=== PATIENT | male | born 1945 | race Caucasian/White ===

== ENCOUNTER → 2023-12-23 10:43 | Outpatient (REF) | payer OTHER, SELFPAY ==
[2023-12-23 11:47] LABS: % Basophils 0.7 % (0-2); % Eosinophils 0.7 % (0-6); % Immature Granulocytes 0.5 % (0-0.5); % Lymphocytes 13.2 % (20.5-51.1); % Monocytes 6.5 % (1.7-9.3); % Neutrophils 78.4 % (42.2-75.2); Absolute Basophils 0.1 10^3/uL (0-0.2); Absolute Eosinophils 0.1 10^3/uL (0-0.7); Absolute Monocytes 0.5 10^3/uL (0.1-0.6); Absolute Neutrophils 5.9 10^3/uL (1.4-6.5); Hematocrit 55.8 % (39.0-52.0); Mean Corp Hgb Conc. 34.1 g/dL (33.0-37.0); Mean Corpuscular Hgb 32.6 pg (27.0-31.0); Mean Corpuscular Volume 95.7 fL (80.0-94.0); Mean Platelet Volume 10.7 fL (7.4-10.4); Nucleated Red Blood Cells % 0 % (-); Platelet Count 130 10^3/uL (130-400); Red Blood Cell Count 5.83 10^6/uL (4.70-6.10); Red Cell Dist. Width 15.8 % (11.5-14.5); White Blood Cell Count 7.5 10^3/uL (4.8-10.8)
[2023-12-23 12:17] LABS: ALT (SGPT) 10 U/L (0-50); AST (SGOT) 17 U/L (17-59); Alkaline Phosphatase 136 U/L (38-126); Blood Urea Nitrogen 15 mg/dl (9-20); Carbon Dioxide 35 mmol/L (22-30); Chloride 97 mmol/L (98-107); Glucose 102 mg/dl (70-99); HDL Cholesterol 37 mg/dl; LDL Cholesterol, Calculated 45 mg/dl; Sodium 138 mmol/L (135-145); Total Bilirubin 1.2 mg/dl (0.2-1.3); Total Cholesterol 93 mg/dl (50-199); Total Protein 6.6 g/dl (6.3-8.2); Triglyceride 56 mg/dl (10-149); Very Low Density Lipoprotein 11 mg/dl (0-30); eGFR > 60.00
[2023-12-23 12:27] LABS: Free T4 1.19 ng/dl (0.78-2.19)
[2023-12-23 12:41] LABS: PSA, Total - Screen 0.92 ng/ml (0.0-4.0)
[2023-12-23 12:46] LABS: Glycohemoglobin (HgbA1c) 5.4 % (4.0-5.6)
[2023-12-23 14:22] LABS: TSH 1.84 uIU/ml (0.47-4.68)
== END ==
LOC: REG 10:43
PROVIDERS: ATTENDING PHYSICIAN Internal Medicine
DX: E03.8 Other specified hypothyroidism (principal); Z12.5 Encounter for screening for malignant neoplasm of prostate; E78.00 Pure hypercholesterolemia, unspecified; R73.9 Hyperglycemia, unspecified
CPT/HCPCS: 36415; 80053; 80061; 83036; 84439; 84443; 85025; G0103

== ENCOUNTER → 2024-01-01 13:22 | Outpatient (REF) | payer OTHER, SELFPAY | LOC: RAD 13:22 | PROVIDERS: ATTENDING PHYSICIAN Internal Medicine | DX: Z87.891 Personal history of nicotine dependence (principal) | CPT/HCPCS: 71271 ==

== ENCOUNTER → 2024-01-16 13:36 | Outpatient (REF) | payer OTHER, SELFPAY | LOC: RCS 13:36 | PROVIDERS: ATTENDING PHYSICIAN Internal Medicine | DX: I10 Essential (primary) hypertension (principal); R60.0 Localized edema | CPT/HCPCS: 93306 ==

== ENCOUNTER 2024-01-31 13:56 | Inpatient (IN) | payer OTHER, SELFPAY ==
[2024-01-31 11:23] VITALS: BP 166/89
[2024-01-31 11:54] VITALS: BMI 21.0
--- NOTE | 2024-01-31 12:04 | ED.GENMED ---
History of Present Illness
General
Chief Complaint: Breathing Problem
Source: patient
Time Seen by Provider: 01/31/24 11:48
History of Present Illness
History of Present Illness:
78yoM with a history of hypertension and COPD on oxygen QHS presenting for evaluation of leg swelling. He reports bilateral leg swelling that has been ongoing since 2021 after a pelvic injury. His leg swelling has been worsening over the past
several weeks to months. He also reports shortness of breath. He has been following with his PCP for the symptoms. He had an outpatient CT chest on 01/01/2024 which showed a tiny pericardial effusion. He had an echocardiogram done on 01/16/2024
which showed an EF of 30 to 35%. No pericardial effusion was present at that time. Patient denies any prior history of CHF and is not on any diuretics. He has an outpatient appointment with cardiology scheduled for next month. He was seen by his
PCP yesterday and was advised to go to the ED for evaluation.
Past History
Past History
ED Past Medical History: COPD
ED Past Surgical History: None
Social History
Tobacco: Smoker
Phy Exam
Physical Exam
Physical Exam:
Chronically ill appearing male in no distress
General Physical Exam
General Presentation: no apparent distress
General Skin: warm and dry
General Habitus: cachetic and elderly
General Mental: alert
Cardiovascular Exam
Cardiovascular Exam: regular rate/rhythm and other (2-3+ pitting edema in lower extremities up to the level of the thighs)
Pulmonary Exam
Pulmonary Exam: no respiratory distress, no crackles, no wheezing and decreased breath sounds
Ashley Coma Scale
Eye Opening: Spontaneous
Verbal Response: Oriented
Motor Response: Obeys Commands
GCS Total Score: 15
Skin Exam
Skin Exam: normal color and warm/dry
Psychiatric Exam
Psychiatric Exam: normal mood/affect
Scores
Heart Failure Risk
Heart Failure Risk Score: Not Applicable
Course
Orders/Labs/Results
Orders:
Orders
01/31/24 11:50
BNP [NT-proBNP] Urgent
CBC/With Diff [Complete Blood Count/With Diff] Urgent
CMP [Comprehensive Metabolic Panel] Urgent
Troponin I Urgent
Comment: ADD ON
01/31/24 12:02
Chest [CR Chest - 2 Views ] Urgent
Comment:
Reason For Exam: SOB
01/31/24 12:04
Cardiac Monitoring- Treatment ONCE
01/31/24 12:22
Electrocardiogram (*1) Urgent
Reason for Study: Shortness of Breath
EKG- Treatment ONCE
01/31/24 12:37
Furosemide [Lasix] 40 mg IV NOW STA
01/31/24 12:42
Add On- LAB Urgent
Tests Added?: troponin
Abnormal Lab Results
01/31/24
11:50
Hgb 19.2 H g/dL
(13.0-18.0)
Hct 58.4 H %
(39.0-52.0)
MCV 98.5 H fL
(80.0-94.0)
MCH 32.4 H pg
(27.0-31.0)
MCHC 32.9 L g/dL
(33.0-37.0)
RDW 17.0 H %
(11.5-14.5)
MPV 10.8 H fL
(7.4-10.4)
Absolute Lymphs (auto) 0.6 L 10^3/uL
(1.2-3.4)
Neutrophils % 78.4 H %
(42.2-75.2)
Lymphocytes % 12.3 L %
(20.5-51.1)
Potassium 5.4 H mmol/L
(3.5-5.1)
Carbon Dioxide 39 H mmol/L
(22-30)
BUN 28 H mg/dl
(9-20)
Creatinine 0.6 L mg/dL
(0.7-1.3)
Glucose 105 H mg/dl
(70-99)
Alkaline Phosphatase 129 H U/L
(38-126)
01/31/24 11:50
01/31/24 11:50
Vital Signs
Initial and Last Documented VS:
Initial Vital Signs
Temp Pulse Resp BP Pulse Ox
98.1 F 80 18 166/89 90
01/31/24 11:23 01/31/24 11:23 01/31/24 11:23 01/31/24 11:23 01/31/24 11:23
Last Documented Vital Signs
Temp Pulse Resp BP Pulse Ox
98.1 F 80 18 166/89 90
01/31/24 11:23 01/31/24 11:23 01/31/24 11:23 01/31/24 11:23 01/31/24 11:23
MDM/Problems Addressed
Differential Diagnosis Includes:
78yoM here with bilateral leg swelling and SOB. Ongoing x several weeks to months. Outpatient echo last month showed an EF of 30-35%. No prior hx of CHF. He is afebrile and hemodynamically stable. Oxygen saturation 90% on room air. Pitting edema up
to the level of the thighs on exam. Differential diagnosis includes but is not limited to: CHF, volume overload, ACS
Initial ED plan: Check cardiac labs, EKG, and CXR.
*EKG
Interpreted by ED Provider?: Yes
EKG Intrepretation Date: 01/31/24
Heart Rate: 76
Rate: normal
Rhythm: sinus
[place]: left axis deviation
Interval: normal interval
Ischemia: T-wave inversion
*Critical Care Note
Total Time (30-74mins, 75-104mins- exclusive of procedures): Not Applicable
Update Note
Update Note:
Labs show a BNP of 15,000. EKG shows NSR with nonspecific T wave changes. Troponin 0.03. Potassium 5.4 although creatinine WNL. No pulmonary edema present on CXR. He was given 40mg IV Lasix and admitted for further management.
ED Attending Note
-
Portions of this chart may have been created with voice recognition software.� Occasional wrong word or��sound alike� substitutions may have occurred due to the inherent limitations of voice recognition software.
Discharge Plan
Departure
Patient Disposition: Admit
Date of Disposition: 01/31/24
Time of Disposition: 13:26
Presentation/result/management discussed w/ accepting MD/DO: Hospitalist
Discharge Problem:
Acute exacerbation of CHF (congestive heart failure)
Prescriptions:
No Action
tamsulosin 0.4 mg capsule
0.4 mg PO QPM
lisinopril 5 mg tablet
5 mg PO QPM
albuterol sulfate 90 mcg/actuation HFA aerosol inhaler
2 puff INHALATION Q4HPRN PRN (Reason: shortness of breath )
Referrals:
Tu Jones DO [Family Provider] -
Interventions
Interventions:
*Risk Screen - Suicide Last Done: 01/31/24 11:54
*General Assessment Last Done: 01/31/24 11:54
*Neglect/Abuse Screening Last Done: 01/31/24 11:54
ED- Fall Risk Assessment Last Done: 01/31/24 11:54
ED- Cardiac Assessment Last Done: 01/31/24 11:54
ED- Pulmonary Assessment Last Done: 01/31/24 11:54
Discharge Date and Time
Print Language: CA[place] ISLAND[place]
[2024-01-31 12:10] LABS: % Basophils 0.6 % (0-2); % Eosinophils 0.8 % (0-6); % Immature Granulocytes 0.2 % (0-0.5); % Lymphocytes 12.3 % (20.5-51.1); % Monocytes 7.7 % (1.7-9.3); % Neutrophils 78.4 % (42.2-75.2); Absolute Lymphocytes 0.6 10^3/uL (1.2-3.4); Absolute Monocytes 0.4 10^3/uL (0.1-0.6); Absolute Neutrophils 3.9 10^3/uL (1.4-6.5); Hematocrit 58.4 % (39.0-52.0); Hemoglobin 19.2 g/dL (13.0-18.0); Mean Corp Hgb Conc. 32.9 g/dL (33.0-37.0); Mean Corpuscular Hgb 32.4 pg (27.0-31.0); Mean Corpuscular Volume 98.5 fL (80.0-94.0); Mean Platelet Volume 10.8 fL (7.4-10.4); Nucleated Red Blood Cells % 0 % (-); Platelet Count 130 10^3/uL (130-400); Red Blood Cell Count 5.93 10^6/uL (4.70-6.10)
[2024-01-31 12:28] LABS: ALT (SGPT) 13 U/L (0-50); AST (SGOT) 22 U/L (17-59); Albumin 4.1 g/dl (3.5-5.0); Alkaline Phosphatase 129 U/L (38-126); Blood Urea Nitrogen 28 mg/dl (9-20); Calcium 9.1 mg/dl (8.4-10.2); Carbon Dioxide 39 mmol/L (22-30); Chloride 101 mmol/L (98-107); Estimated Creatinine Clearance 110 ml/min; Glucose 105 mg/dl (70-99); Potassium 5.4 mmol/L (3.5-5.1); Sodium 145 mmol/L (135-145); Total Bilirubin 1.2 mg/dl (0.2-1.3); Total Protein 6.7 g/dl (6.3-8.2); eGFR > 60.00
[2024-01-31 12:34] LABS: NT-proBNP 15600 pg/ml
[2024-01-31] MEDS: LASIX 40 MG IV (13:09)
--- NOTE | 2024-01-31 13:46 | HPS.HSE ---
Family Physician
-
Family Physician: Tu Jones
Chief Complaint
-
edema
History of Present Illness
78-year-old male past medical history of hypertension, COPD on 1 L at nighttime, BPH, presenting for leg swelling. He has been having bilateral leg swelling since 2021 after pelvic injury. Swelling has been worse over the past several weeks to
months and goes up to his groin. He has gained possibly 20 pounds in the past few months. He has some productive cough which is chronic from smoking. He also has shortness of breath and saw his primary care physician who ordered CT chest on 12/31
which showed tiny pericardial effusion. He had an echocardiogram on 01/15 which showed EF of 30 to 35%. No pericardial effusion was seen at that time. He denies any history of heart failure or cardiac problems. He has outpatient appoint with
cardiology scheduled for next month.
He denies any fevers or chills.
He smokes a pack of cigarettes a day. He denies alcohol.
No family history of heart problems.
He is scheduled to see Dr. Christiansen next month.
Medical History
Past Medical History
Past Medical History: Reports Other (hypertension, COPD on 1 L at nighttime, BPH,)
Past Surgical History: Reports None
Social History
Tobacco: Former Smoker
Alcohol: None
Drug: None
Family History
Family History: Not pertinent
Allergies / Home Medications
Allergies reflects when Allergies were last updated in [facility].
Home Medications with original date entered in [facility]
Allergy/Medication List:
Allergies
Allergy/AdvReac Type Severity Reaction Status Date / Time
No Known Allergies Allergy Unverified 06/07/19 17:15
Home Medications
albuterol sulfate 90 mcg/actuation aerosol inhaler 2 puff inhalation Q4HPRN PRN shortness of breath 01/31/24
lisinopril 5 mg tablet 5 mg PO QPM blood pressure 01/31/24
tamsulosin 0.4 mg capsule 0.4 mg PO QPM urinary issue 01/31/24
Review of Systems
-
History Source: Patient
A 12 point ROS was completed and negative except as noted: Yes
Constitutional: Reports No Symptoms
EENT: Reports No Symptoms
Respiratory: Reports See HPI
Cardiac: Reports See HPI
Abdomen/GI: Reports No Symptoms
: Reports No Symptoms
Musculoskeletal: Reports No Symptoms
Skin: Reports No Symptoms
Neurological: Reports No Symptoms
Endocrine: Reports No Symptoms
Hematologic/Lymphatic: Reports No Symptoms
Psych: Reports No Symptoms
Physical Exam
Vital Signs
Vital Signs
Temp Pulse Resp BP Pulse Ox
98.1 F 80 18 166/89 90
01/31/24 11:23 01/31/24 11:23 01/31/24 11:23 01/31/24 11:23 01/31/24 11:23
Physical Exam
General: Well Developed, Well Nourished and No Apparent Distress
HEENT: NormoCephalic, Moist mucous membranes and Atraumatic
Respiratory: Clear
Cardiac: S1/S2 and Regular Rhythm; No Murmur or Rub
GI: Soft, Non Tender, Non Distended and Normal Bowel Sounds; No Organomegaly
Rectal: Deferred by Provider
Musculoskeletal: No Clubbing, No Cyanosis and No Edema
Skin: No Rash
Neuro: Nonfocal/grossly intact
Laboratory Results
-
01/31/24 11:50
01/31/24 11:50
Laboratory Results
Total Bilirubin 1.2 mg/dl (0.2-1.3) 01/31/24 11:50
AST 22 U/L (17-59) 01/31/24 11:50
ALT 13 U/L (0-50) 01/31/24 11:50
Alkaline Phosphatase 129 U/L (38-126) H 01/31/24 11:50
Troponin I Cancelled 01/31/24 12:04
Data Reviewed
-
Lab Data: Labs Reviewed by me
Old Records: Reviewed
Impression/Plan
-
IMPRESSION:
PLAN:
# Acute HFrEF exacerbation
-Chest x-ray shows interval enlargement of cardiac silhouette compared with CT on 12/31, no acute cardiopulmonary process
-Cardiac BNP of 15,000
-Check I's and O's, daily weights
-Recent echo shows EF of 30 to 35%, global hypokinesis,
-40 IV Lasix daily
-Cardiology consulted
# Hyperkalemia secondary to lisinopril
-Monitor with diuresis
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
-Check venous ultrasound to rule out DVT
# Chronic polycythemia secondary to COPD versus primary
-Check EPO, JAK2
-May need hematology follow-up
Mild to moderate tricuspid regurgitation
Pulmonary hypertension
Essential hypertension
-Continue lisinopril
COPD on 1 L oxygen at nighttime
-Continue butyryl
Active smoker
-Nicotine patch
BPH
-Continue tamsulosin
Full code
DVT prophylaxis�heparin
Cardiac diet
[2024-01-31 15:15] VITALS: BP 174/106
[2024-01-31 16:08] VITALS: BMI 19.1
[2024-01-31 16:09] VITALS: BMI 19.1
[2024-01-31 16:11] VITALS: BP 164/92
[2024-01-31] MEDS: ZESTRIL 5 MG PO (17:57)
[2024-01-31] MEDS: FLOMAX 0.4 MG PO (17:58)
[2024-01-31 19:27] VITALS: BP 160/81
[2024-01-31] MEDS: HEPARIN SC (20:52)
[2024-01-31 23:39] VITALS: BP 146/79
[2024-02-01 03:18] VITALS: BP 154/75
[2024-02-01 06:56] LABS: % Basophils 0.6 % (0-2); % Eosinophils 0.9 % (0-6); % Immature Granulocytes 0.4 % (0-0.5); % Lymphocytes 9.2 % (20.5-51.1); % Monocytes 8.8 % (1.7-9.3); % Neutrophils 80.1 % (42.2-75.2); Absolute Eosinophils 0.1 10^3/uL (0-0.7); Absolute Lymphocytes 0.5 10^3/uL (1.2-3.4); Absolute Monocytes 0.5 10^3/uL (0.1-0.6); Absolute Neutrophils 4.3 10^3/uL (1.4-6.5); Hematocrit 54.7 % (39.0-52.0); Hemoglobin 17.4 g/dL (13.0-18.0); Mean Corp Hgb Conc. 31.8 g/dL (33.0-37.0); Mean Corpuscular Hgb 31.9 pg (27.0-31.0); Mean Corpuscular Volume 100.2 fL (80.0-94.0); Mean Platelet Volume 9.9 fL (7.4-10.4); Nucleated Red Blood Cells % 0 % (-); Platelet Count 114 10^3/uL (130-400); Red Blood Cell Count 5.46 10^6/uL (4.70-6.10); Red Cell Dist. Width 16.1 % (11.5-14.5); White Blood Cell Count 5.4 10^3/uL (4.8-10.8)
[2024-02-01 07:25] VITALS: BP 159/83
[2024-02-01 08:02] LABS: ALT (SGPT) 11 U/L (0-50); AST (SGOT) 18 U/L (17-59); Albumin 3.6 g/dl (3.5-5.0); Alkaline Phosphatase 127 U/L (38-126); Blood Urea Nitrogen 27 mg/dl (9-20); Calcium 8.3 mg/dl (8.4-10.2); Carbon Dioxide 38 mmol/L (22-30); Chloride 99 mmol/L (98-107); Estimated Creatinine Clearance 91 ml/min; Glucose 96 mg/dl (70-99); Potassium 4.4 mmol/L (3.5-5.1); Sodium 146 mmol/L (135-145); Total Protein 6.1 g/dl (6.3-8.2); eGFR > 60.00
[2024-02-01] MEDS: HEPARIN 5000 UNITS SC ×2 (08:06→20:29)
[2024-02-01] MEDS: LASIX 40 MG IV (08:06)
[2024-02-01] MEDS: NICODERM TRANSDERMAL TRANSDERM ×2 (08:06→08:12)
[2024-02-01 09:10] VITALS: BMI 19.1
--- NOTE | 2024-02-01 09:39 | W.PN.HOSP.TC ---
Today's Communication/Plan
-
see bold
Assessment / Plan
Assessment / Plan
Gen: NAD, awake and alert, appears chronically ill and malnourished, cachectic
Eyes: EOMI, PERRLA, no scleral icterus.
Neck: supple.
CV: RRR, +S1/S2, no m/r/g.
Resp: Coarse breath sounds bilaterally
Abd: +BS, soft, NT, ND
Skin: No rashes. 2+ B/L LE edema
Neuro: CN 2-12 intact, non-focal.
Psych: Normal mood and affect.
B/L LE U/S: No sonographic evidence for lower extremity venous thrombosis. Lower extremity soft tissue edema.
Echo 01/16/24: EF 30-35%. Global hypokinesis. Severely enlarged RV with reduced right RV systolic fxn. mild-mod TR. Severely elevated PASP of 72 mmHg.
Acute HFrEF:
-Chest x-ray shows interval enlargement of cardiac silhouette compared with CT on 12/31, no acute cardiopulmonary process
-Cardiac BNP of 15,000
-I/O's, daily wts
-Recent echo above
-cont IV Lasix
-Cardiology following
-D-dimer POS, check CTA chest
Other problems:
Hyperkalemia secondary to lisinopril, resolved with diuresis
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
Mild-mod TR
Pulmonary hypertension
Essential hypertension: Continue lisinopril
Chronic hypoxemic respiratory failure due to COPD: on 1L NC O2 HS, Continue butyryl
Tobacco abuse disorder: Nicotine patch
BPH: Continue tamsulosin
FULL/heparin
Total time spent on today's encounter was 50 minutes which included time spent in counseling the patient/family regarding diagnosis and treatment plan as listed above, goals of care, and symptom management. Case was discussed with nursing staff,
specialists, and care coordinators/case management. All labs and imaging personally reviewed by me. Remainder the time spent in detailed review of previous records, lab data, imaging, and other medical provider documentation.
Anticipated Discharge: 24 - 48 hours
Subjective/Interval History
-
Date of Service: February 01, 2024
Currently denies SOB.
Objective Data
-
Labs:
Laboratory Results
02/01/24
06:18
WBC 5.4
Hgb 17.4
Hct 54.7 H
Plt Count 114 L
Sodium 146 H
Potassium 4.4
Chloride 99
Carbon Dioxide 38 H
BUN 27 H
Creatinine 0.7
Glucose 96
Calcium 8.3 L
Total Bilirubin 1.0
AST 18
ALT 11
Alkaline Phosphatase 127 H
Vital Signs:
Vital Signs
Temp Pulse Resp BP Pulse Ox
97.9 F 76 20 154/75 95
02/01/24 07:25 02/01/24 08:06 02/01/24 07:25 02/01/24 08:06 02/01/24 08:00
I&O
01/31/24 02/01/24 02/02/24
06:59 06:59 06:59
Intake Total 480 / 480
Output Total 900 / 900
Balance -420 / -420
--- NOTE | 2024-02-01 09:41 | CON.CAR ---
Addendum entered and electronically signed by Joshua Christiansen MD 02/01/24 12:36:
I saw and examined the patient.
The SOCIAL MEDIA SR STRATEGY MANAGER or PA's note was reviewed and I agree with the note.
Comment: General: Well developed, well nourished in NAD.
Neck: Supple, no JVD, HJR, carotids +2 B/L, no bruits bilaterally.
Heart: Non displaced PMI, RRR, no murmurs, No S3, S4, no rubs.
Lungs: Scattered rhonchi
Abdomen: Normal bowel sounds, soft, non-tender, non-distended.
Extremities: No clubbing, cyanosis or edema bilaterally.
Neuro: Grossly nonfocal, awake, alert and oriented x3.
Sadi has a history of COPD on chronic home oxygen 1 L, hypertension, ongoing tobacco abuse. He presents with increasing lower extremity edema and an outpatient echocardiogram with ejection fraction of 30 to 35% in December 2023. He denies chest pain
or shortness of breath at present. Of note right ventricle was dilated on echo but CT was negative for pulmonary embolism.
Will treat with IV Lasix. Will add Coreg and continue lisinopril. May consider changing to Entresto. Will also add Farxiga. Eventual Aldactone as well.
The most common cause of cardiomyopathy is CAD. Of note he has continued tobacco abuse and high risk for CAD. Will arrange for cardiac catheterization on Friday 02/02. Of note his mother during bypass surgery so he may not agree to bypass if
needed. Will add aspirin daily.
Addendum entered and electronically signed by Lashell Gaspar PA-C 02/01/24 10:13:
gave 324mg asa and added 81mg daily for now.
Original Note:
Consultation
Consultation Request
Date/Time Consultation Performed: 02/01/24
Requesting Provider: Dr. Lock
Performing Provider: Lashell Gaspar PA-C for Dr. Christiansen
Reason for Consultation: LE edema, CHF
Medical History
-
Chief Complaint: LE swelling
History of Present Illness:
Patient is a 78-year-old male with past medical history of ongoing tobacco use and COPD on chronic home O2 1 L nasal cannula, which he mostly uses at night, as well as hypertension who has had issues with bilateral lower extremity swelling since a
pelvic surgery in 2021, however over the last several months has noted significant worsening. He was seen by his primary care physician for this and ordered chest CT lung scan 01/01/2024 with tiny pericardial effusion. Also ordered echocardiogram
completed 01/16/2024 which showed new EF of 30 to 35% and large RV. He was recommended cardiology evaluation, presently scheduled for 03/23/2024. He was seen by his primary care physician earlier this week and advised to come to the emergency room
for further evaluation. He denies chest discomfort, shortness of breath, palpitations, weight gain, fevers chills, orthopnea. Reports he continues to smoke a pack a day. Lives independently and still working, driving. proBNP [id number].
PMH:
COPD, on chronic home O2 1L
HTN
Ongoing tobacco use
FH of CAD
Past Medical History
Past Medical History: Other (in HPI)
Social History
Tobacco: Smoker
Alcohol: None
Living: Alone
Employment: Employed
Family History
Family History: CAD
Allergies / Home Medications
Allergy/AdvReac Type Severity Reaction Status Date / Time
No Known Allergies Allergy Unverified 06/07/19 17:15
�Medication �Instructions �Recorded �Confirmed �Type
albuterol sulfate 90 mcg/actuation 2 puff inhalation Q4HPRN PRN 01/31/24 01/31/24 History
aerosol inhaler shortness of breath
lisinopril 5 mg tablet 5 mg PO QPM blood pressure 01/31/24 01/31/24 History
tamsulosin 0.4 mg capsule 0.4 mg PO QPM urinary issue 01/31/24 01/31/24 History
Review of Systems
-
History Source: Patient
All other systems: Negative unless noted
Physical Exam
Vital Signs
Temp Pulse Resp BP Pulse Ox
97.9 F 76 20 154/75 95
02/01/24 07:25 02/01/24 08:06 02/01/24 07:25 02/01/24 08:06 02/01/24 08:00
Lab Results
02/01/24 06:18
02/01/24 06:18
Troponin I Cancelled 01/31/24 12:04
Fnw-V-Ojuhzmyrtyg Pept 00482 pg/ml 01/31/24 11:50
Physical Exam
General: No Apparent Distress, Comfortable and Other (frail appearing. on supp O2)
HEENT: Normocephalic, Anicteric and Moist Mucous Membranes
Respiratory: Clear and Non Labored Respirations
Cardiac: S1/S2 and Regular Rhythm
GI: Soft and Non Tender
Musculoskeletal: No Clubbing, No Cyanosis and Edema (2-3+ edema of B/L LE to knees)
Skin: Warm and Dry
Neuro: AO x 3
Impression / Plan
-
Primary Business Professor: scheduled to see Dr. Christiansen 03/23
Assessment:
Presentation with LE edema
Acute HFrEF
Cardiomyopathy, EF 30-35% by echo 01/16/24
Enlarged RV by echo 01/16/24
Thrombocytopenia
COPD, on chronic home O2 1L
HTN
Ongoing tobacco use
FH of CAD
ECHO 01/16/24: EF 30 to 35%, global hypokinesis, severely enlarged RV size with reduced RV systolic function, mild to moderate TR, severely elevated PASP with PAP 72 mmHg
Plan:
-Patient presents with worsening bilateral lower extremity edema over the last several months. recent outpatient echo with EF 30-35 with no prior to compare. proBNP 15,600
-Diuresis with IV Lasix, currently on 40mg IV daily. Creatinine stable. daily weights
-CHF education
-tubigrip stockings
-Also noted by echo to have severely enlarged RV size. Peripheral vascular ultrasound negative for DVT. Would consider for D-dimer/CTA to rule out PE, d/w hospitalist
-Chest x-ray also noted to have increased cardiac silhouette, to be further evaluated by CTA
-Continue outpatient lisinopril. As without wheezing, add Coreg 3.125 mg twice daily and follow closely. will have CM assess cost to patient of SGLT2 inhibitor
-On review of telemetry overnight, patient noted to have several brief episodes of aberrant conduction versus NSVT, asymptomatic. K stable. Check magnesium
-Discussed if CT is negative for PE, will consider for cardiac catheterization on Friday 02/02 to evaluate coronary arteries. He is an ongoing smoker and with family history of CAD
-Encouraged tobacco cessation
Data Reviewed
-
EKG: Tracing Personally Visualized and interpreted
Radiology: Report Reviewed by me
CT Scan: Report Reviewed by me
Medical Tests (Nuc Med, Echo etc): Report Reviewed by me
Labs: Labs Reviewed by me
Old Records: Reviewed
[2024-02-01 10:02] LABS: D-Dimer 1.59 ug/mlFEU (0.00-0.50)
[2024-02-01 10:44] LABS: Troponin I 0.028 ng/ml
[2024-02-01] MEDS: COREG 3.125 MG PO ×2 (11:23→20:29)
[2024-02-01] MEDS: LOW STRENGTH ASPIRIN 324 MG PO (11:24)
--- NOTE | 2024-02-01 11:37 | CM ---
Addendum entered by Karime [facility] 02/01/24 14:55:
Patient seen bedside.
IA completed.
DX CHF.
Patient lives alone in a 1 story home with no steps.
Independent prior to admission without assistive devices.
Patient drives.
Patient had VN int he remote past, he thinks [facility].
Patient denies home care needs at this time.
Patient aware of CM availability should needs arise.
PCP; Dr Jones
Pharmacy: [facility]
Plan: home no needs anticipated.
Original Note:
CM referral re Farxiga 10 mg daily
Cost..$47/month.
[2024-02-01 11:46] VITALS: BP 149/89
[2024-02-01] MEDS: FARXIGA 10 MG PO ×2 (12:54→16:55)
[2024-02-01 15:38] VITALS: BP 115/53
[2024-02-01] MEDS: FLOMAX 0.4 MG PO (16:55)
[2024-02-01] MEDS: ZESTRIL 5 MG PO (16:55)
[2024-02-01 19:00] VITALS: BP 142/64
[2024-02-01 23:00] VITALS: BP 127/62
[2024-02-02 03:00] VITALS: BP 117/66
[2024-02-02 06:00] VITALS: BMI 18.9
[2024-02-02] MEDS: COREG 3.125 MG PO ×2 (07:33→19:39)
[2024-02-02] MEDS: FARXIGA 10 MG PO (07:33)
[2024-02-02] MEDS: LASIX 40 MG IV (07:33)
[2024-02-02] MEDS: NICODERM TRANSDERMAL TRANSDERM (07:34)
[2024-02-02] MEDS: HEPARIN 5000 UNITS SC ×2 (07:34→19:39)
[2024-02-02] MEDS: LOW STRENGTH ASPIRIN 81 MG PO (07:34)
[2024-02-02 07:40] VITALS: BP 108/52
[2024-02-02 08:27] LABS: Albumin 3.5 g/dl (3.5-5.0); Blood Urea Nitrogen 31 mg/dl (9-20); Calcium 8.5 mg/dl (8.4-10.2); Chloride 92 mmol/L (98-107); Estimated Creatinine Clearance 104 ml/min; Glucose 93 mg/dl (70-99); Hematocrit 54.2 % (39.0-52.0); Hemoglobin 17.4 g/dL (13.0-18.0); Mean Corp Hgb Conc. 32.1 g/dL (33.0-37.0); Mean Corpuscular Volume 102.8 fL (80.0-94.0); Mean Platelet Volume 10.3 fL (7.4-10.4); Phosphorus 3.8 mg/dl (2.5-4.5); Platelet Count 132 10^3/uL (130-400); Potassium 4.9 mmol/L (3.5-5.1); Red Blood Cell Count 5.27 10^6/uL (4.70-6.10); Red Cell Dist. Width 15.4 % (11.5-14.5); Sodium 141 mmol/L (135-145); White Blood Cell Count 6.7 10^3/uL (4.8-10.8); eGFR > 60.00
[2024-02-02 08:37] LABS: Carbon Dioxide 39 mmol/L (22-30)
--- NOTE | 2024-02-02 10:06 | W.PN.HOSP.TC ---
Today's Communication/Plan
-
see bold
Assessment / Plan
Assessment / Plan
Gen: NAD, awake and alert, appears chronically ill and malnourished, cachectic
Eyes: EOMI, PERRLA, no scleral icterus.
Neck: supple.
CV: remains RRR, +S1/S2, no m/r/g.
Resp: remains coarse breath sounds bilaterally
Abd: +BS, soft, NT, ND
Skin: No rashes. trace B/L LE edema
Neuro: CN 2-12 intact, non-focal.
Psych: Normal mood and affect.
B/L LE U/S: No sonographic evidence for lower extremity venous thrombosis. Lower extremity soft tissue edema.
Echo 01/16/24: EF 30-35%. Global hypokinesis. Severely enlarged RV with reduced right RV systolic fxn. mild-mod TR. Severely elevated PASP of 72 mmHg.
CTA chest: No PE. Mild centrilobular emphysema. Pleural-parenchymal scarring at both lung apices. Minimal bilateral pleural effusions. Cardiomegaly without associated pulmonary edema. Atherosclerosis.
Acute HFrEF:
-Chest x-ray shows interval enlargement of cardiac silhouette compared with CT on 12/31, no acute cardiopulmonary process
-Cardiac BNP of 15,000
-I/O's, daily wts
-Recent echo above
-cont IV Lasix
-Cardiology following
-cont Coreg/Farxiga
Other problems:
Hyperkalemia secondary to lisinopril, resolved with diuresis
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
Mild-mod TR
Pulmonary hypertension
Essential hypertension: Continue lisinopril/Coreg
Chronic hypoxemic respiratory failure due to COPD: on 1L NC O2 HS, Continue albuterol PRN
Tobacco abuse disorder: Nicotine patch
BPH: Continue tamsulosin
FULL/heparin
Anticipated Discharge: 24 - 48 hours
Subjective/Interval History
-
Date of Service: February 02, 2024
No new complaints.
Objective Data
-
Labs:
Laboratory Results
02/02/24
07:24
WBC 6.7
Hgb 17.4
Hct 54.2 H
Plt Count 132
Sodium 141
Potassium 4.9
Chloride 92 L
Carbon Dioxide 39 H
BUN 31 H
Creatinine 0.6 L
Glucose 93
Calcium 8.5
Vital Signs:
Vital Signs
Temp Pulse Resp BP Pulse Ox
97.7 F 68 16 108/52 92
02/02/24 07:40 02/02/24 07:40 02/02/24 07:40 02/02/24 07:40 02/02/24 08:00
I&O
02/01/24 02/02/24 02/03/24
06:59 06:59 06:59
Intake Total 480 / 480 840 / 840
Output Total 900 / 900 1750 / 1750
Balance -420 / -420 -910 / -910
[2024-02-02 11:21] VITALS: BP 106/57
--- NOTE | 2024-02-02 11:22 | W.PN.CARDCBS ---
Today's Communication / Plan
-
Continue IV Lasix
Add Aldactone
For catheterization 02/02
Impression / Plan
-
Primary Mobile Manager: scheduled to see Dr. Christiansen 03/23
Assessment:
Presentation with LE edema
Acute HFrEF
Cardiomyopathy, EF 30-35% by echo 01/16/24
Enlarged RV by echo 01/16/24/CT negative for PE 02/01/2024
COPD, on chronic home O2 1L
HTN
Ongoing tobacco use
FH of CAD
ECHO 01/16/24: EF 30 to 35%, global hypokinesis, severely enlarged RV size with reduced RV systolic function, mild to moderate TR, severely elevated PASP with PAP 72 mmHg
Plan:
Difficult examination with scattered rhonchi likely due to longstanding tobacco abuse/COPD
Will continue IV Lasix for now
Plan on catheterization on 02/02 AM
Continue Coreg, lisinopril, Farxiga for cardiomyopathy. Will add Aldactone.
Progress Note - Mobile Manager
Subjective
Date of Service: February 02, 2024
No complaints
Objective
Labs:
02/02/24 07:24
02/02/24 07:24
Labs
Hgb 17.4 g/dL (13.0-18.0) 02/02/24 07:24
Hct 54.2 % (39.0-52.0) H 02/02/24 07:24
Plt Count 132 10^3/uL (130-400) 02/02/24 07:24
Sodium 141 mmol/L (135-145) 02/02/24 07:24
Potassium 4.9 mmol/L (3.5-5.1) 02/02/24 07:24
BUN 31 mg/dl (9-20) H 02/02/24 07:24
Creatinine 0.6 mg/dL (0.7-1.3) L 02/02/24 07:24
Glucose 93 mg/dl (70-99) 02/02/24 07:24
Troponins
01/31/24 01/31/24 02/01/24
11:50 12:04 10:12
Troponin I 0.030 Cancelled 0.028
Vital Signs and I&O:
Vital Signs
Temp Pulse Resp BP Pulse Ox
98 F 65 16 106/57 96
02/02/24 11:21 02/02/24 11:21 02/02/24 11:21 02/02/24 11:21 02/02/24 11:21
Vital Signs
Temp Pulse Resp BP Pulse Ox
98 F 65 16 106/57 96
02/02/24 11:21 02/02/24 11:21 02/02/24 11:21 02/02/24 11:21 02/02/24 11:21
Intake & Output
01/31/24 02/01/24 02/02/24 02/03/24
06:59 06:59 06:59 06:59
Intake Total 480 / 480 840 / 840
Output Total 900 / 900 1750 / 1750
Balance -420 / -420 -910 / -910
Physical Exam
Physical Exam
General: Well developed, well nourished in NAD.
Neck: Supple, no JVD, HJR, carotids +2 B/L, no bruits bilaterally.
Heart: Non displaced PMI, RRR, no murmurs, No S3, S4, no rubs.
Lungs: Scattered rhonchi
Extremities: No clubbing, cyanosis or edema bilaterally.
Neuro: Grossly nonfocal, awake, alert and oriented x3.
[2024-02-02] MEDS: ALDACTONE 12.5 MG PO (12:09)
[2024-02-02 15:22] VITALS: BP 116/56
[2024-02-02] MEDS: ZESTRIL 5 MG PO (17:03)
[2024-02-02] MEDS: FLOMAX 0.4 MG PO (17:03)
[2024-02-02 19:20] VITALS: BP 137/66
[2024-02-02 23:15] VITALS: BP 138/61
[2024-02-02 23:17] LABS: Erythropoietin (EPO) 16 mU/mL (4-27)
[2024-02-03] VITALS (14 sets, daily range): BP systolic 110–147; BP diastolic 50–77
[2024-02-03 07:07] LABS: Hematocrit 50.6 % (39.0-52.0); Hemoglobin 16.1 g/dL (13.0-18.0); Mean Corp Hgb Conc. 31.8 g/dL (33.0-37.0); Mean Corpuscular Hgb 32.3 pg (27.0-31.0); Mean Corpuscular Volume 101.4 fL (80.0-94.0); Mean Platelet Volume 10.3 fL (7.4-10.4); Platelet Count 124 10^3/uL (130-400); Red Blood Cell Count 4.99 10^6/uL (4.70-6.10); Red Cell Dist. Width 15.6 % (11.5-14.5)
[2024-02-03 07:34] LABS: Albumin 3.3 g/dl (3.5-5.0); Blood Urea Nitrogen 28 mg/dl (9-20); Calcium 8.2 mg/dl (8.4-10.2); Chloride 94 mmol/L (98-107); Estimated Creatinine Clearance 104 ml/min; Glucose 106 mg/dl (70-99); Phosphorus 3.5 mg/dl (2.5-4.5); Potassium 4.5 mmol/L (3.5-5.1); Sodium 143 mmol/L (135-145); eGFR > 60.00
[2024-02-03 07:43] LABS: Carbon Dioxide 38 mmol/L (22-30)
[2024-02-03] MEDS: ALDACTONE 12.5 MG PO (09:28)
[2024-02-03] MEDS: COREG 3.125 MG PO ×2 (09:28→20:43)
[2024-02-03] MEDS: LASIX 40 MG IV (09:29)
[2024-02-03] MEDS: NICODERM TRANSDERMAL TRANSDERM (09:30)
[2024-02-03] MEDS: LOW STRENGTH ASPIRIN 81 MG PO (09:30)
[2024-02-03] MEDS: HEPARIN 5000 UNITS SC ×2 (09:30→20:48)
--- NOTE | 2024-02-03 11:40 | W.PN.CARDCBS ---
Addendum entered and electronically signed by Joshua Christiansen MD 02/03/24 12:45:
I saw and examined the patient.
The CURAM DEVELOPER or PA's note was reviewed and I agree with the note.
Comment: General: Well developed, well nourished in NAD.
Neck: Supple, no JVD, HJR, carotids +2 B/L, no bruits bilaterally.
Heart: Non displaced PMI, RRR, no murmurs, No S3, S4, no rubs.
Lungs: Scattered rhonchi
Extremities: No clubbing, cyanosis or edema bilaterally.
Neuro: Grossly nonfocal, awake, alert and oriented x3.
He continues to do well. Will continue IV Lasix. For right and left heart cath today. Explained risk and benefits in detail and he agrees to proceed
Original Note:
Today's Communication / Plan
-
Continue IV diuresis
Right and left heart cath this afternoon
Continue GDMT
Impression / Plan
-
Primary Administrative Asst: scheduled to see Dr. Christiansen 03/23
Assessment:
Presentation with LE edema, 01/31/2024
Acute HFrEF, proBNP 15,600
Cardiomyopathy, EF 30-35% by echo 01/16/24
Enlarged RV by echo 01/16/24/CT negative for PE 02/01/2024
COPD, on chronic home O2 1L
HTN
Ongoing tobacco use
FH of CAD
ECHO 01/16/24: EF 30 to 35%, global hypokinesis, severely enlarged RV size with reduced RV systolic function, mild to moderate TR, severely elevated PASP with PAP 72 mmHg
Plan:
Acute heart failure with reduced ejection fraction.
Weight down over 5 pounds since admission.
Will continue IV Lasix for now
Renal function stable with creatinine 0.6
Difficult examination with scattered rhonchi likely due to longstanding tobacco abuse/COPD
Still requiring 3 L of oxygen via nasal cannula would consider both left and right heart catheterization given severely enlarged RV size and reduced RV systolic function with pulmonary hypertension
Continue GDMT of Coreg, lisinopril, Farxiga, Aldactone for cardiomyopathy
Lipids from 12/23/2023 TC 93, HDL 37, LDL 45, triglycerides 56. Patient not on statin. Pending results of catheterization may need to add statin
Progress Note - Administrative Asst
Subjective
Date of Service: February 03, 2024
Patient seen and examined. Patient sitting in bed wearing oxygen. Reports improved shortness of breath but still not back to baseline. Denies chest pain
Objective
Labs:
02/03/24 06:06
02/03/24 06:06
Labs
Hgb 16.1 g/dL (13.0-18.0) 02/03/24 06:06
Hct 50.6 % (39.0-52.0) 02/03/24 06:06
Plt Count 124 10^3/uL (130-400) L 02/03/24 06:06
Sodium 143 mmol/L (135-145) 02/03/24 06:06
Potassium 4.5 mmol/L (3.5-5.1) 02/03/24 06:06
BUN 28 mg/dl (9-20) H 02/03/24 06:06
Creatinine 0.6 mg/dL (0.7-1.3) L 02/03/24 06:06
Glucose 106 mg/dl (70-99) H 02/03/24 06:06
Troponins
01/31/24 01/31/24 02/01/24
11:50 12:04 10:12
Troponin I 0.030 Cancelled 0.028
Vital Signs and I&O:
Vital Signs
Temp Pulse Resp BP Pulse Ox
98.3 F 62 18 132/66 98
02/03/24 11:08 02/03/24 11:08 02/03/24 11:08 02/03/24 11:08 02/03/24 11:08
Vital Signs
Temp Pulse Resp BP Pulse Ox
98.3 F 62 18 132/66 98
02/03/24 11:08 02/03/24 11:08 02/03/24 11:08 02/03/24 11:08 02/03/24 11:08
Intake & Output
02/01/24 02/02/24 02/03/24 02/04/24
06:59 06:59 06:59 06:59
Intake Total 480 / 480 840 / 840 940 / 940
Output Total 900 / 900 1750 / 1750 2600 / 2600
Balance -420 / -420 -910 / -910 -1660 / -1660
Physical Exam
Physical Exam
GEN: No distress, awake, Ox3, sitting in bed
HEENT: supple, anicteric, mmm
LUNGS: Scattered rhonchi bilaterally with mildly decreased breath sounds at bilateral bases, no wheezes; on oxygen 3 L
CV: Reg, S1/S2, 1/6 RSB murmur
ABD: soft, BS+, NT/ND
EXT: No edema, clubbing or cyanosis
NEURO: Gross non-focal
SKIN: No rash, warm, dry, pink
--- NOTE | 2024-02-03 12:00 | CM ---
Chart reviewed and patient is for possible cardiac catheterization today, CHF patient however has declined VN services, will follow.
Plan; Home when stable, no needs.
--- NOTE | 2024-02-03 14:56 | W.PN.HOSP.TC ---
Today's Communication/Plan
-
LHC
IV diretics
Assessment / Plan
Assessment / Plan
NAD, frail cachectic
Scleral anicteric
Moist mucous membranes
No JVD
CTA bilateral
Normal S1-S2 no murmurs
Soft nontender nondistended bowel sounds active
No peripheral pitting edema
Moves extremities spontaneously
AAOx3
HFrEF, acute 30-35%, NYHA class III-IV, continue IV Lasix Farxiga Coreg patient should be transition from lisinopril to Entresto. Would need 72-hour washout of lisinopril before starting Entresto.
Hyperkalemia secondary to lisinopril, resolved with diuresis
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
Mild-mod TR
Pulmonary hypertension
Essential hypertension: Continue lisinopril/Coreg
Chronic hypoxemic respiratory failure due to COPD: on 1L NC O2 HS, Continue albuterol PRN
Tobacco abuse disorder: Nicotine patch
Anticipated Discharge: Within 24 hours
Subjective/Interval History
-
Date of Service: February 03, 2024
Seen and examined. No new complaints. No acute overnight events.
States he is urinating a lot.
A lot of fluid has been removed.
Feeling significantly better.
Understands that he is going for left and right heart catheterization today.
States that he uses oxygen only at nighttime.
Objective Data
-
Labs:
Laboratory Results
02/03/24
06:06
WBC 7.0
Hgb 16.1
Hct 50.6
Plt Count 124 L
Sodium 143
Potassium 4.5
Chloride 94 L
Carbon Dioxide 38 H
BUN 28 H
Creatinine 0.6 L
Glucose 106 H
Calcium 8.2 L
Vital Signs:
Vital Signs
Temp Pulse Resp BP Pulse Ox
98.3 F 62 18 132/66 98
02/03/24 11:08 02/03/24 11:08 02/03/24 11:08 02/03/24 11:08 02/03/24 11:08
I&O
02/02/24 02/03/24 02/04/24
06:59 06:59 06:59
Intake Total 840 / 840 940 / 940
Output Total 1750 / 1750 2600 / 2600
Balance -910 / -910 -1660 / -1660
--- NOTE | 2024-02-03 16:44 | ITS.CL.CATH ---
Curator Of [employer]s - Catheterization
Cardiac Catheterization
Procedure Report:
RIGHT AND LEFT HEART STUDY
Date of Procedure: February 03, 2024
Referring: Dr. Joshua Christiansen
PROCEDURES:
1. Right heart catheterization
2. Left heart catheterization with coronary and single-plane left ventriculography
INDICATION: This is a 78-year-old gentleman with a past medical history notable for tobacco abuse on chronic home O2. He presented to [facility] with increased lower extremity edema and an echocardiogram was notable for new LV dysfunction
with an estimated ejection fraction of 30-35%. The right ventricle was noted to be dilated but CT scan was negative for pulmonary embolism. He presented to [facility] for evaluation of shortness of breath and progressive lower extremity
edema. He is now referred for coronary angiography.
ACCESS: Right radial artery, 6 [place] sheath and right common femoral vein, 6 [place] sheath
HEMODYNAMICS : mmHg
RA (m) : 17
RV (s/d) : 56/14, 18
PA (s/d, m) : 58/14, 35
PCWP (m) : 24
AO (s/d, m) : 147/70, 94
LV (s/d) : 146/19
LVEDP : 26
Estimated [place] Cardiac Output: 4.6 L / min and Cardiac Index: 2.3 L/ min / m-2
Systemic vascular resistance: 16.7 Wood units or 1339 [id number](-5)
Pulmonary vascular resistance: 2.4 Wood units or 191 [id number](-5)
CORONARY FINDINGS :
Dominance: Right
LEFT MAIN: Normal
LEFT ANTERIOR DESCENDING: The LAD arises normally from the left main and runs in the anterior interventricular groove. The LAD has luminal irregularities in its proximal midportion with a 50% stenosis in the mid LAD just beyond the origin of the
third diagonal branch. The remainder of the LAD has only luminal irregularities in the distal vessel wraps around the apex.
CIRCUMFLEX: The circumflex is a medium caliber nondominant vessel giving rise to a single obtuse marginal branch with minor luminal irregularities noted
RIGHT CORONARY ARTERY: The right coronary artery is a large-caliber dominant vessel with only minor irregularities over its course. The PDA is large. The posterolateral branch is large
VENTRICULOGRAPHY: Left ventriculography is performed in an WHITING projection. The digital single-plane left ventricular ejection fraction is estimated at 30%. The ventricular chamber is small.
RADIATION SUMMARY: Fluoro Time (min): 3.9, Dose (mGy): 219, DAP (Gy.cm2) : 18.6
CONCLUSIONS
1. Nonobstructive coronary disease
2. Modestly elevated left ventricular filling pressures with pulmonary capillary wedge pressure of 24 mmHg and LVEDP measuring 26 mmHg.
3. Moderate left ventricular dysfunction with small left ventricular chamber dimensions and global hypokinesis
RECOMMENDATIONS
1. Medical management for nonischemic cardiomyopathy
2. Patient was hypoxic with O2 sats on room air of 75%. Chronically on home O2. Pulmonary to evaluate
Copy to: Dr. Joshua Christiansen, Dr. Flaco Castillo
[2024-02-03] MEDS: FLOMAX 0.4 MG PO (18:39)
[2024-02-03] MEDS: ZESTRIL 5 MG PO (18:40)
[2024-02-04 03:00] VITALS: BP 129/68
[2024-02-04 06:00] VITALS: BMI 18.2
[2024-02-04 06:58] LABS: Albumin 3.5 g/dl (3.5-5.0); Blood Urea Nitrogen 26 mg/dl (9-20); Calcium 8.9 mg/dl (8.4-10.2); Chloride 90 mmol/L (98-107); Estimated Creatinine Clearance 100 ml/min; Glucose 115 mg/dl (70-99); Phosphorus 3.4 mg/dl (2.5-4.5); Potassium 5.1 mmol/L (3.5-5.1); Sodium 145 mmol/L (135-145); eGFR > 60.00
[2024-02-04 07:19] LABS: Hematocrit 53.7 % (39.0-52.0); Hemoglobin 16.8 g/dL (13.0-18.0); Mean Corp Hgb Conc. 31.3 g/dL (33.0-37.0); Mean Corpuscular Hgb 32.1 pg (27.0-31.0); Mean Corpuscular Volume 102.7 fL (80.0-94.0); Platelet Count 117 10^3/uL (130-400); Red Blood Cell Count 5.23 10^6/uL (4.70-6.10); Red Cell Dist. Width 15.6 % (11.5-14.5); White Blood Cell Count 4.6 10^3/uL (4.8-10.8)
[2024-02-04 07:26] VITALS: BP 143/71
[2024-02-04 07:35] LABS: Carbon Dioxide 43 mmol/L (22-30)
[2024-02-04] MEDS: COREG 3.125 MG PO ×2 (09:02→21:13)
[2024-02-04] MEDS: ALDACTONE 12.5 MG PO (09:02)
[2024-02-04] MEDS: LOW STRENGTH ASPIRIN 81 MG PO (09:03)
[2024-02-04] MEDS: LASIX 40 MG IV (09:03)
[2024-02-04] MEDS: HEPARIN 5000 UNITS SC ×2 (09:03→21:13)
[2024-02-04] MEDS: NICODERM TRANSDERMAL 14 MG TRANSDERM (09:03)
[2024-02-04] MEDS: FARXIGA 10 MG PO (09:03)
[2024-02-04 11:21] VITALS: BP 116/66
--- NOTE | 2024-02-04 11:42 | W.PN.CARDCBS ---
Addendum entered and electronically signed by Josuha Christiansen MD 02/04/24 12:01:
I saw and examined the patient.
The NOTEMAN or PA's note was reviewed and I agree with the note.
Comment: General: Well developed, well nourished in NAD.
Neck: Supple, no JVD, HJR, carotids +2 B/L, no bruits bilaterally.
Heart: Non displaced PMI, RRR, no murmurs, No S3, S4, no rubs.
Lungs: Scattered rhonchi throughout
Extremities: No clubbing, cyanosis or edema bilaterally.
Neuro: Grossly nonfocal, awake, alert and oriented x3.
Difficult examination but likely still some element of acute systolic CHF. Will continue IV Lasix another day. He is chronically on oxygen at home. Could consider pulmonary evaluation if remains short of breath with increasing activity.
Original Note:
Today's Communication / Plan
-
continue IV lasix
wean supp O2 as able
t/c pulm evaluation
GDMT of NICM
Impression / Plan
-
Primary Trimmer Press Clippings: scheduled to see Dr. Christiansen 03/23
Assessment:
Presentation with LE edema, 01/31/2024
Acute HFrEF, proBNP 15,600
nonischemic cardiomyopathy, EF 30-35% by echo 01/16/24
cath 02/03/24 with nonobstructive CAD
PVCs
Enlarged RV by echo 01/16/24/CT negative for PE 02/01/2024
COPD, on chronic home O2 1L
HTN
Ongoing tobacco use
FH of CAD
ECHO 01/16/24: EF 30 to 35%, global hypokinesis, severely enlarged RV size with reduced RV systolic function, mild to moderate TR, severely elevated PASP with PAP 72 mmHg
Plan:
-Patient presented with bilateral lower extremity edema and recent outpatient echo with EF 30 to 35%. proBNP on arrival was 15,600
-Status postcardiac catheterization 02/03/2024 with nonobstructive coronary disease and LVEDP 26, PCWP 24. R radial and groin sites c/d/i
-Continue IV diuresis. Creatinine stable. was not on diuretic prior to admission
-Wean supplemental oxygen as able. chronically on home O2 due to underlying COPD/lung disease with ongoing tobacco use. primary service to consider pulm evaluation
-CHF education
-Continue guideline directed medical therapy of nonischemic cardiomyopathy with Coreg, lisinopril, Farxiga, Aldactone
-in SR on review of tele overnight, occasional PVCs at times in pattern of bigeminy.
-d/w nursing
Progress Note - Trimmer Press Clippings
Subjective
Date of Service: February 04, 2024
reports feeling improved from admission
Objective
Labs:
02/04/24 06:13
02/04/24 06:13
Labs
Hgb 16.8 g/dL (13.0-18.0) 02/04/24 06:13
Hct 53.7 % (39.0-52.0) H 02/04/24 06:13
Plt Count 117 10^3/uL (130-400) L 02/04/24 06:13
Sodium 145 mmol/L (135-145) 02/04/24 06:13
Potassium 5.1 mmol/L (3.5-5.1) 02/04/24 06:13
BUN 26 mg/dl (9-20) H 02/04/24 06:13
Creatinine 0.6 mg/dL (0.7-1.3) L 02/04/24 06:13
Glucose 115 mg/dl (70-99) H 02/04/24 06:13
Vital Signs and I&O:
Vital Signs
Temp Pulse Resp BP Pulse Ox
98.3 F 70 20 116/66 91
02/04/24 11:21 02/04/24 11:21 02/04/24 11:21 02/04/24 11:21 02/04/24 11:21
Vital Signs
Temp Pulse Resp BP Pulse Ox
98.3 F 70 20 116/66 91
02/04/24 11:21 02/04/24 11:21 02/04/24 11:21 02/04/24 11:21 02/04/24 11:21
Intake & Output
02/02/24 02/03/24 02/04/24 02/05/24
07:59 07:59 07:59 07:59
Intake Total 840 / 840 940 / 940 960 / 960
Output Total 1750 / 1750 2600 / 2600 2275 / 2275
Balance -910 / -910 -1660 / -1660 -1315 / -1315
Physical Exam
Physical Exam
GEN: No distress, awake, alert, oriented x3. chronically ill appearing. on supp O2
HEENT: supple, anicteric, mmm, eomi
LUNGS: CTA B/L, no wheezes
CV: Reg, S1/S2, 1/6 murmur
ABD: soft, BS+, NT/ND
EXT: No cyanosis, clubbing. 2+ edema of B/L LE. tubigrip stockings in place
NEURO: Gross non-focal
SKIN: Warm, pink, dry. No rash. R radial and groin sites soft, c/d/i
[2024-02-04 11:49] VITALS: BMI 18.2
--- NOTE | 2024-02-04 12:26 | CM ---
Patient is for discharge to home when stable, patient has home oxygen at 2 liters, patient does not remember his oxygen company.
Plan; Home when stable.
[2024-02-04 15:30] VITALS: BP 131/70
--- NOTE | 2024-02-04 16:40 | W.PN.HOSP.TC ---
Today's Communication/Plan
-
continue IV Lasix
recheck BMP in AM
Assessment / Plan
Assessment / Plan
HFrEF, acute 30-35%, NYHA class III-IV, continue IV Lasix (cardio would like to continue for at least one more day) Jose Calle patient should be transition from lisinopril to Entresto. Would need 72-hour washout of lisinopril before starting
Entresto.
BMP raises concern for contraction alkalosis, pending BMP tomorrow, may need to consider Nephro consult
Hyperkalemia secondary to lisinopril, resolved with diuresis
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
Mild-mod TR
Pulmonary hypertension
Essential hypertension: Continue lisinopril/Coreg
Chronic hypoxemic respiratory failure due to COPD: on 1L NC O2 HS, Continue albuterol PRN
Tobacco abuse disorder: Nicotine patch
Anticipated Discharge: 24 - 48 hours
Subjective/Interval History
-
Date of Service: February 04, 2024
Starting to feel better
Objective Data
-
Labs:
Laboratory Results
02/04/24
06:13
WBC 4.6 L
Hgb 16.8
Hct 53.7 H
Plt Count 117 L
Sodium 145
Potassium 5.1
Chloride 90 L
Carbon Dioxide 43 H
BUN 26 H
Creatinine 0.6 L
Glucose 115 H
Calcium 8.9
Vital Signs:
Vital Signs
Temp Pulse Resp BP Pulse Ox
98.2 F 69 18 131/70 91
02/04/24 15:30 02/04/24 15:30 02/04/24 15:30 02/04/24 15:30 02/04/24 15:30
I&O
02/03/24 02/04/24 02/05/24
06:59 06:59 06:59
Intake Total 940 / 940 960 / 960
Output Total 2600 / 2600 2275 / 2275
Balance -1660 / -1660 -1315 / -1315
Review of Systems
-
History Source: Patient and Coordinated Provider
Constitutional: Denies Fever
EENT: Reports No Symptoms Reported
Respiratory: Reports Trouble Breathing (better)
Cardiac: Denies Chest Pain
Abdomen/GI: Reports No Symptoms
Physical Exam
-
General: Well Developed, No Apparent Distress, Cachectic and Other (frail appearing)
HEENT: Normocephalic, Atraumatic and Moist Mucous Membranes
Respiratory: Clear to Auscultation; Negative Wheezes, Rales or Rhonchi
Cardiac: Regular Rhythm and S1/S2
GI: Nontender and Nondistended
Musculoskeletal: No Clubbing, No Cyanosis and No Edema
Neuro: Awake, Alert and Oriented
[2024-02-04] MEDS: FLOMAX 0.4 MG PO (17:17)
[2024-02-04] MEDS: ZESTRIL 5 MG PO (17:17)
[2024-02-04 19:40] VITALS: BP 138/64
[2024-02-04 23:14] VITALS: BP 148/71
[2024-02-05 03:38] VITALS: BP 155/75
[2024-02-05 06:00] VITALS: BMI 18.1
[2024-02-05 07:32] VITALS: BP 142/72
[2024-02-05] MEDS: ALDACTONE 12.5 MG PO (08:24)
[2024-02-05] MEDS: FARXIGA 10 MG PO (08:25)
[2024-02-05] MEDS: COREG PO (08:25)
[2024-02-05] MEDS: HEPARIN 5000 UNITS SC (08:25)
[2024-02-05] MEDS: LASIX 40 MG IV (08:26)
[2024-02-05] MEDS: LOW STRENGTH ASPIRIN 81 MG PO (08:26)
[2024-02-05] MEDS: NICODERM TRANSDERMAL 14 MG TRANSDERM (08:26)
[2024-02-05 08:33] LABS: Blood Urea Nitrogen 28 mg/dl (9-20); Calcium 8.3 mg/dl (8.4-10.2); Chloride 91 mmol/L (98-107); Estimated Creatinine Clearance 100 ml/min; Glucose 90 mg/dl (70-99); Potassium 4.3 mmol/L (3.5-5.1); Sodium 137 mmol/L (135-145); eGFR > 60.00
[2024-02-05 08:44] LABS: Carbon Dioxide 38 mmol/L (22-30)
--- NOTE | 2024-02-05 11:27 | W.PN.CARDCBS ---
Addendum entered and electronically signed by Jorge Alberto Carvajal MD 02/05/24 15:59:
I saw and examined the patient.
The Call Out Clerk's note was reviewed and I agree with the note.
Comment:
GEN: No distress, awake, Ox3
HEENT: supple, anicteric, mmm
LUNGS: bilat rhonchi
CV: Reg, S1/S2, 06/01 syst LSB, no gallop
ABD: soft, BS+, NT/ND
EXT: No edema
NEURO: Gross non-focal
SKIN: No rash
Plan:
Switch to Lasix 40 mg p.o. daily. Continue Coreg, lisinopril, Aldactone, and Farxiga.
Repeat labs in 1 week.
Advised him to not work or perform any heavy lifting till reevaluated in the office next week.
Will need reevaluation of LVEF in 9 months after medical therapy to consider defibrillator placement.
Original Note:
Today's Communication / Plan
-
transition to po lasix 40mg daily
BMP/mag in 1 week upon DC
continue coreg, lisinopril, aldactone, farxiga
OP cardiac follow up arranged
no work or heavy lifting until reevaluated in office next week
home O2 eval. needs to establish OP pulm care
Impression / Plan
-
Primary Box Feeder: scheduled to see Dr. Christiansen 03/23
Assessment:
Presentation with LE edema, 01/31/2024
Acute HFrEF, proBNP 15,600
nonischemic cardiomyopathy, EF 30-35% by echo 01/16/24
cath 02/03/24 with nonobstructive CAD
PVCs
Enlarged RV by echo 01/16/24/CT negative for PE 02/01/2024
COPD, on chronic home O2 1L
HTN
Ongoing tobacco use
FH of CAD
ECHO 01/16/24: EF 30 to 35%, global hypokinesis, severely enlarged RV size with reduced RV systolic function, mild to moderate TR, severely elevated PASP with PAP 72 mmHg
Plan:
-Patient presented with bilateral lower extremity edema and recent outpatient echo with EF 30 to 35%. proBNP on arrival was 15,600
-Status postcardiac catheterization 02/03/2024 with nonobstructive coronary disease and LVEDP 26, PCWP 24.
-he continues to diurese well. Cr remains stable. transition to po lasix 40mg daily for DC. was not on diuretic therapy prior to admission
-CHF education
-needs BMP/mag in 1 week
-in SR upon review of tele overnight. 1 episode of what appears to be rate related bundle, and 1 10-beat run of NSVT. cannot go up on BB due to bradycardia. coreg was not given this morning, d/w nurse to give 3.125mg. check mag. K stable
-continue GDMT of NICM with coreg, lisinopril, aldactone, farxiga
-eval for home O2, currently on 2L NC.
-encouraged patient to establish care with aoc director combat operations officer
-OP cardiac follow up arranged. of note, patient refused VN
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 we discussed with his current conditions he cannot lift greater than 10 pounds. he states he can get someone else to lift the boxes for him. he plans to
return to work on Saturday, we discussed waiting until he is seen in office Saturday for follow up
-smoking cessation
-ok for DC to home today from cardiac standpoint
-d/w nursing
Progress Note - Box Feeder
Subjective
Date of Service: February 05, 2024
feeling well. eager for DC.
Objective
Labs:
02/04/24 06:13
02/05/24 06:30
Labs
Hgb 16.8 g/dL (13.0-18.0) 02/04/24 06:13
Hct 53.7 % (39.0-52.0) H 02/04/24 06:13
Plt Count 117 10^3/uL (130-400) L 02/04/24 06:13
Sodium 137 mmol/L (135-145) D 02/05/24 06:30
Potassium 4.3 mmol/L (3.5-5.1) 02/05/24 06:30
BUN 28 mg/dl (9-20) H 02/05/24 06:30
Creatinine 0.5 mg/dL (0.7-1.3) L 02/05/24 06:30
Glucose 90 mg/dl (70-99) 02/05/24 06:30
Vital Signs and I&O:
Vital Signs
Temp Pulse Resp BP Pulse Ox
97.6 F 58 20 142/72 96
02/05/24 07:32 02/05/24 08:25 02/05/24 07:32 02/05/24 07:32 02/05/24 08:40
Vital Signs
Temp Pulse Resp BP Pulse Ox
97.6 F 58 20 142/72 96
02/05/24 07:32 02/05/24 08:25 02/05/24 07:32 02/05/24 07:32 02/05/24 08:40
Intake & Output
02/03/24 02/04/24 02/05/24 02/06/24
07:59 07:59 07:59 07:59
Intake Total 940 / 940 960 / 960 1380 / 1380
Output Total 2600 / 2600 2275 / 2275 1450 / 1450
Balance -1660 / -1660 -1315 / -1315 -70 / -70
Physical Exam
Physical Exam
GEN: No distress, awake, alert, oriented x3. frail appearing. on supp O2
HEENT: supple, anicteric, mmm, eomi
LUNGS: mild wheezes B/L
CV: Reg, S1/S2, no murmur
ABD: soft, BS+, NT/ND
EXT: No cyanosis, clubbing. Trace edema of B/L LE
NEURO: Gross non-focal
SKIN: Warm, pink, dry. No rash
[2024-02-05] MEDS: COREG 3.125 MG PO (11:31)
[2024-02-05 11:46] VITALS: BP 121/64
--- NOTE | 2024-02-05 14:02 | W.PN.HOSP.TC ---
Today's Communication/Plan
-
Discharge home
Assessment / Plan
Assessment / Plan
HFrEF, acute 30-35%, NYHA class III-IV, continue IV Lasix (cardio would like to continue for at least one more day) Luc Coreg patient should be transition from lisinopril to Entresto. Would need 72-hour washout of lisinopril before starting
Entresto.
Transition to p.o. Lasix today
Hyperkalemia secondary to lisinopril, resolved with diuresis
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
Mild-mod TR
Pulmonary hypertension
Essential hypertension: Continue lisinopril/Coreg
Chronic hypoxemic respiratory failure due to COPD: on 1L NC O2 ATC, Continue albuterol PRN
Tobacco abuse disorder: Nicotine patch
Discharge home
Anticipated Discharge: Today
Subjective/Interval History
-
Date of Service: February 05, 2024
Seen and examined. No new complaints. No acute overnight events.
Objective Data
-
Labs:
Laboratory Results
02/05/24
06:30
Sodium 137 D
Potassium 4.3
Chloride 91 L
Carbon Dioxide 38 H
BUN 28 H
Creatinine 0.5 L
Glucose 90
Calcium 8.3 L
Vital Signs:
Vital Signs
Temp Pulse Resp BP Pulse Ox
98.0 F 69 20 121/64 95
02/05/24 11:46 02/05/24 11:46 02/05/24 11:46 02/05/24 11:46 02/05/24 11:46
I&O
02/04/24 02/05/24 02/06/24
06:59 06:59 06:59
Intake Total 960 / 960 1380 / 1380
Output Total 2275 / 2275 1450 / 1450
Balance -1315 / -1315 -70 / -70
--- NOTE | 2024-02-05 14:05 | W.DCSUMMARY ---
Addendum entered and electronically signed by Herbert Campa MD 02/06/24 12:24:
Moderate Protein Calorie Malnutrition
Original Note:
Discharge Summary
Discharge Data
Date of Admission: 01/31/24
Date of Discharge: 02/05/24
-
Pending Results: No
Hospital Course
78 M hx of hypertension, COPD on 1 L at nighttime, BPH, presenting for leg swelling presented for lower extremity swelling. Found to be in acute heart failure exacerbation. Known EF of 30 to 35%. Started on IV Lasix diuresed well. Was evaluated
by cardiology recommended a left heart catheterization. This demonstrated nonobstructive disease in coronary arteries. Additionally had further imaging that did not demonstrate pulmonary embolism. However it did show centrilobular emphysema
pleuroparenchymal scarring at both lung apices. Due to the severe swelling of lower extremities had ultrasound that did not demonstrate DVT. It has been recommended to continue daily p.o. Lasix, Coreg, lisinopril, Aldactone and Farxiga.
Outpatient cardiac follow-up. Additionally, will need outpatient pulmonary care.
Please continue to wear oxygen all the time. Do not smoke while wearing oxygen. Please do not smoke.
CXR
IMPRESSION:
No active pulmonary process.
Interval enlargement of the cardiac silhouette when compared with the dumper bailer operator from CT on 01/01/2024, possibly representing underlying pericardial effusion. Echocardiography could be performed for further evaluation.
DVT Study
IMPRESSION:
No sonographic evidence for lower extremity venous thrombosis.
Lower extremity soft tissue edema.
Chest CT
IMPRESSION:
There is no pulmonary embolism
Mild centrilobular emphysema
Pleural-parenchymal scarring at both lung apices
Minimal bilateral pleural effusions
Cardiomegaly without associated pulmonary edema
Atherosclerosis
LHC
CONCLUSIONS
1. Nonobstructive coronary disease
2. Modestly elevated left ventricular filling pressures with pulmonary capillary wedge pressure of 24 mmHg and LVEDP measuring 26 mmHg.
3. Moderate left ventricular dysfunction with small left ventricular chamber dimensions and global hypokinesis
RECOMMENDATIONS
1. Medical management for nonischemic cardiomyopathy
2. Patient was hypoxic with O2 sats on room air of 75%. Chronically on home O2. Pulmonary to evaluate
Discharge Plan
-
Patient Disposition: Home (Routine Discharge)
Discharge Diagnosis/Procedures: heart failure, nonischemic cardiomyopathy, cardiac catheterization
Diet: 2 Gram Sodium and Restrict fluids to 48 oz
Activity: No strenuous activity
Additional Activity: no heavy lifting greater than 10 pounds!
Driving Restrictions: No driving for 24 hours
Blood Work: BMP/magnesium in 1 week
Specialty Instructions: Weigh Daily- Call MD for wt gain/loss 3 lbs overnight/5 lbs in 1 week
Activity Restrictions/Additional Instructions:
Please await return to work until after reevaluated in cardiology office 02/11/24.
Instructions: *[facility] Heart Failure Instructions
Stand Alone Forms: DC Instructions- Cath/EP Lab
Referrals:
Deyanira Cerda MD [Active] - in three to four weeks
Tu Jones, DO [Family Provider] -
Kassie Knutson PA-C [Specified Professional Personl] - 02/11/24 10:40 am (you have a cardiology follow-up appointment at the [place] office with Dr. Christiansen's physician printer floor covering assistant, Kassie. Please call with questions. )
Additional Discharge Medication Instructions: Presented for lower extremity swelling. Found to be in acute heart failure exacerbation. Known EF of 30 to 35%. Started on IV Lasix diuresed well. Was evaluated by cardiology recommended a left heart
catheterization. This demonstrated nonobstructive disease in coronary arteries. Additionally had further imaging that did not demonstrate pulmonary embolism. However it did show centrilobular emphysema pleuroparenchymal scarring at both lung
apices. Due to the severe swelling of lower extremities had ultrasound that did not demonstrate DVT. It has been recommended to continue daily p.o. Lasix, Coreg, lisinopril, Aldactone and Farxiga. Outpatient cardiac follow-up. Additionally, will
need outpatient pulmonary care.
Please continue to wear oxygen all the time. Do not smoke while wearing oxygen. Please stop smoking.
CXR
IMPRESSION:
No active pulmonary process.
Interval enlargement of the cardiac silhouette when compared with the dumper bailer operator from CT on 01/01/2024, possibly representing underlying pericardial effusion. Echocardiography could be performed for further evaluation.
DVT Study
IMPRESSION:
No sonographic evidence for lower extremity venous thrombosis.
Lower extremity soft tissue edema.
Chest CT
IMPRESSION:
There is no pulmonary embolism
Mild centrilobular emphysema
Pleural-parenchymal scarring at both lung apices
Minimal bilateral pleural effusions
Cardiomegaly without associated pulmonary edema
Atherosclerosis
LHC
CONCLUSIONS
1. Nonobstructive coronary disease
2. Modestly elevated left ventricular filling pressures with pulmonary capillary wedge pressure of 24 mmHg and LVEDP measuring 26 mmHg.
3. Moderate left ventricular dysfunction with small left ventricular chamber dimensions and global hypokinesis
RECOMMENDATIONS
1. Medical management for nonischemic cardiomyopathy
2. Patient was hypoxic with O2 sats on room air of 75%. Chronically on home O2. Pulmonary to evaluate
Prescriptions:
New
nicotine 14 mg/24 hr Patch 24 Hour
14 mg transdermal DAILY 14 Days Qty: 14 0RF
spironolactone 25 mg Tablet
12.5 mg PO DAILY 30 Days Qty: 30 0RF
carvedilol 3.125 mg Tablet
3.125 mg PO BID 30 Days Qty: 60 0RF
tamsulosin 0.4 mg Capsule
0.4 mg PO QPM 30 Days Qty: 30 0RF
aspirin 81 mg Tablet,Chewable
81 mg PO DAILY 30 Days Qty: 30 0RF
lisinopril 5 mg Tablet
5 mg PO QPM 30 Days Qty: 30 0RF
dapagliflozin propanediol 10 mg Tablet
10 mg PO DAILY 30 Days Qty: 30 0RF
atorvastatin [Lipitor] 40 mg tablet
40 mg PO HS Qty: 30 0RF
furosemide [Lasix] 40 mg tablet
40 mg PO DAILY Qty: 30 0RF
Continued
lisinopril 5 mg tablet
5 mg PO QPM
albuterol sulfate 90 mcg/actuation HFA aerosol inhaler
2 puff INHALATION Q4HPRN PRN (Reason: shortness of breath )
Discontinued
tamsulosin 0.4 mg capsule
0.4 mg PO QPM
Discharge Orders:
Discharge Patient (As Directed); Ordered 02/05/24
Ordered By: Herbert Campa
Discharge Date and Time
Print Language: ITALIAN
--- NOTE | 2024-02-05 14:40 | CM ---
Chart reviewed and plan is to home today, patient has home oxygen, patient declined the need for visiting nurses after discharge.
Plan; Home today no needs, patient reports he has transport to home.
[2024-02-05 15:02] VITALS: BP 140/63
--- NOTE | 2024-02-05 15:24 | PN.CDI ---
CDI
- -
CDI:
Physician Documentation Request
Admit Date: 01/31/24 13:56
Dear Doctor Lokesh,
Clinical Indicators:
Patient admitted with acute HFrEF.
BMI 18.1
02/03 PN, Physical Exam: Cachectic
02/03 note/assessment, ' During visit RD able to observe appearance of moderate fat/muscle loss on temples, orbital, clavicle, ribs, calves. Due to these observations pt meeting criteria for moderate protein-calorie malnutrition (ASPEN/AND
guidelines, chronic illness).'
Based on the above information and your assessment, which of the following most accurately represents the patient's nutritional status?
Moderate Protein Calorie Malnutrition
Mild Protein Calorie Malnutrition
Cachexia without malnutrition
Other (please specify)
[place] Criteria ([facility] Hospitalist 2017)
2 or more criteria must be present for either
non severe or severe malnutrition
Note that the criteria differs related to the
presence of an acute or chronic illness
Acute Illness Chronic Illness
Energy Intake Non Severe: <75% for >7 days Non Severe: <75% for >1 month
Severe: <50% for >5 days Severe: <75% for >1 month
Weight Loss Non Severe: 1-2% over 1 week Non Severe: 5% over 1 month
5% over 1 month 7.5% over 3 months
7.5% over 3 months 10% over 6 months
1 year N/A 20% over 1 year
Severe: >2% over 1 week Severe: >5% over 1 month
>5% over 1 month >7.5% over 3 months
>7.5% over 3 months >10% over 6 months
1 year N/A >20% over 1 year
Body Fat Non Severe: Mild Decrease Non Severe: Mild Loss
Severe: Moderate Decrease Severe: Severe Loss
Muscle Mass Non Severe: Mild Decrease Non Severe: Mild Loss
Severe: Moderate Decrease Severe: Severe Loss
Fluid Accumulation Non Severe: Mild Accumulation Non Severe: Mild Accumulation
Severe: Moderate to severe Severe: Moderate to severe
accumulation accumulation
Reduced Sample Display Preparer Strength Non Severe: N/A Non Severe: N/A
Severe: Measurably reduced Severe: Measurably reduced
Additional criteria that can be used to Determine if Mild or Moderate Malnutrition (Merck Manual 2018)
Mild Moderate Severe
Albumin gm/dl <3.0 gm/dl <2.5 gm/dl <2.0 gm/dl
Pre Albumin mg/dl <15 gm/dl <10 mg/dl <5.0 mg/dl
BMI <18.5 <17 <16
Use of terms such as suspected, likely, concern for, or probable (associated with a specific diagnosis that is being evaluated, monitored, or treated as if it exists) are acceptable and can be coded in the inpatient setting, when documented at the
time of discharge.
Thank you,
Madelin Macias RN BSN
CDI Specialist
available via tiger text
Please use your independent medical judgment in providing your response.
--- NOTE | 2024-02-06 09:10 | W.HF.CON ---
Heart Failure
- LV Function
Left ventricular function study result: LV Ejection fraction </= 35%
Ejection Fraction Percentage: 30-35
- ARNI
Patient already on ARNI: No
Heart Failure ARNI Contraindication: Hyperkalemia
- ACEI/ARB
Patient already on ACEI/ARB: Yes
- Beta Diallo
Patient already on Evidence Based Beta Diallo: Yes
- Mineralocorticord Receptor Antagonist
Patient already on MRA: Yes
- SGLT-2 Inhibitor
Patient already on SGLT-2 Inhibitor: Yes
- NYHA CHF Classification
NYHA CHF Classification Level: Class III - Symptoms w/ min exertion, interferes w/ nml daily activity
- ACC/AHA Stage
ACC/AHA Stage: Stage C: Symptomatic Heart Failure
[2024-02-06 21:57] LABS: JAK2 Qual Mutation by PCR Not Detected; JAK2-PCR Source Whole Blood
== END 2024-02-05 15:47 | disposition home or self-care (01) | DRG 286 ==
LOC: 4 WEST ACU 13:56
PROVIDERS: Internal Medicine; Physician Assistant; ADMITTING PHYSICIAN Hospitalist; ATTENDING PHYSICIAN Hospitalist; CONSULT PHYSICIAN Internal Medicine Cardiovascular Disease; EMERGENCY PHYSICIAN Student in an Organized Health Care Education/Training Program; FAMILY PHYSICIAN Internal Medicine
PROC: 4A023N8 Measurement of Cardiac Sampling and Pressure, Bilateral, Percutaneous Approach (ICD-10-PCS; 2024-02-03)
PROC: B2111ZZ Fluoroscopy of Multiple Coronary Arteries using Low Osmolar Contrast (ICD-10-PCS; 2024-02-03)
PROC: B2151ZZ Fluoroscopy of Left Heart using Low Osmolar Contrast (ICD-10-PCS; 2024-02-03)
DX: I11.0 Hypertensive heart disease with heart failure (principal); I50.23 Acute on chronic systolic (congestive) heart failure; J96.11 Chronic respiratory failure with hypoxia; E44.0 Moderate protein-calorie malnutrition; Z68.1 Body mass index [BMI] 19.9 or less, adult; R64 Cachexia; I42.8 Other cardiomyopathies; I27.20 Pulmonary hypertension, unspecified; J44.9 Chronic obstructive pulmonary disease, unspecified; E87.5 Hyperkalemia; D75.1 Secondary polycythemia; I07.1 Rheumatic tricuspid insufficiency; I89.0 Lymphedema, not elsewhere classified; T46.4X5A Adverse effect of angiotensin-converting-enzyme inhibitors, initial encounter; I49.3 Ventricular premature depolarization; I25.10 Atherosclerotic heart disease of native coronary artery without angina pectoris; D69.6 Thrombocytopenia, unspecified; J43.2 Centrilobular emphysema; N40.0 Benign prostatic hyperplasia without lower urinary tract symptoms; F17.210 Nicotine dependence, cigarettes, uncomplicated; Z99.81 Dependence on supplemental oxygen; Z82.49 Family history of ischemic heart disease and other diseases of the circulatory system; Z79.899 Other long term (current) drug therapy
CPT/HCPCS: 71046; 71275; 80048; 80053; 80069; 81270; 82668; 83735; 83880; 84484; 85025; 85027; 85379; 93005; 93460; 93970; 96374; 99285; 99406; C1894; Q9967

== ENCOUNTER → 2024-02-15 11:12 | Outpatient (REF) | payer OTHER, SELFPAY ==
[2024-02-15 13:12] LABS: Chloride 95 mmol/L (98-107); eGFR > 60.00
[2024-02-15 13:21] LABS: Blood Urea Nitrogen 22 mg/dl (9-20); Calcium 8.9 mg/dl (8.4-10.2); Glucose 92 mg/dl (70-99); Magnesium 2.2 mg/dl (1.6-2.3); Potassium 4.3 mmol/L (3.5-5.1); Sodium 145 mmol/L (135-145)
[2024-02-15 13:31] LABS: Carbon Dioxide 37 mmol/L (22-30)
== END ==
LOC: REG 11:12
PROVIDERS: ATTENDING PHYSICIAN Physician Assistant Medical; FAMILY PHYSICIAN Internal Medicine
DX: I50.22 Chronic systolic (congestive) heart failure (principal)
CPT/HCPCS: 36415; 80048; 83735

== ENCOUNTER → 2024-05-22 13:45 | Outpatient (REF) | payer OTHER, SELFPAY | LOC: RCS 13:45 | PROVIDERS: ATTENDING PHYSICIAN Internal Medicine Cardiovascular Disease; FAMILY PHYSICIAN Internal Medicine | DX: I42.8 Other cardiomyopathies (principal) | CPT/HCPCS: 93306 ==

== ENCOUNTER → 2024-10-22 10:17 | Outpatient (REF) | payer OTHER, SELFPAY ==
[2024-10-22 11:31] LABS: % Eosinophils 1.6 % (0-6); % Immature Granulocytes 0.2 % (0-0.5); % Lymphocytes 15.8 % (20.5-51.1); % Monocytes 6.4 % (1.7-9.3); Absolute Basophils 0.1 10^3/uL (0-0.2); Absolute Eosinophils 0.1 10^3/uL (0-0.7); Absolute Lymphocytes 0.9 10^3/uL (1.2-3.4); Absolute Monocytes 0.4 10^3/uL (0.1-0.6); Absolute Neutrophils 4.3 10^3/uL (1.4-6.5); Hematocrit 53.1 % (39.0-52.0); Hemoglobin 17.5 g/dL (13.0-18.0); Mean Corpuscular Hgb 32.1 pg (27.0-31.0); Mean Corpuscular Volume 97.3 fL (80.0-94.0); Mean Platelet Volume 10.4 fL (7.4-10.4); Nucleated Red Blood Cells % 0 % (-); Platelet Count 111 10^3/uL (130-400); Red Blood Cell Count 5.46 10^6/uL (4.70-6.10); Red Cell Dist. Width 14.3 % (11.5-14.5); White Blood Cell Count 5.8 10^3/uL (4.8-10.8)
[2024-10-22 11:50] LABS: Troponin I < 0.012 ng/ml
== END ==
LOC: REG 10:17
PROVIDERS: ATTENDING PHYSICIAN Internal Medicine
DX: Z01.818 Encounter for other preprocedural examination (principal)
CPT/HCPCS: 36415; 84484; 85025

== ENCOUNTER 2024-10-28 06:27 | Day surgery (SDC) | payer OTHER, SELFPAY ==
[2024-10-28] MEDS: ALCAINE 0.5% EYE DROPS 4 DROP OPHTH (07:16)
[2024-10-28] MEDS: POLYTRIM OPHTHALMIC SOLUTION 3 DROP OPHTH (07:17)
[2024-10-28] MEDS: PRED FORTE 1% EYE DROPS 3 DROP OPHTH (07:17)
[2024-10-28] MEDS: NEO-SYNEPHRINE 2.5% OPH SOL. 3 DROP OPHTH (07:17)
[2024-10-28] MEDS: CYCLOGYL 1% EYE DROPS 3 DROP OPHTH (07:18)
[2024-10-28] MEDS: MYDRIACYL 3 DROP OPHTH (07:18)
[2024-10-28] MEDS: ACUVAIL 3 DROPS OPHTH (07:19)
[2024-10-28] MEDS: AKTEN OPHTHALMIC GEL 1 ML OPHTH (07:19)
[2024-10-28 07:20] VITALS: BMI 17.5
[2024-10-28 07:22] VITALS: BMI 17.5
[2024-10-28 07:23] VITALS: BP 187/109
[2024-10-28] MEDS: NORMOSOL-R/PLASMALYTE-A 1000 IV (07:32)
[2024-10-28 08:50] VITALS: BP 141/71
== END 2024-10-28 09:25 | disposition home or self-care (01) ==
LOC: SDS 06:27
PROVIDERS: ATTENDING PHYSICIAN Ophthalmology
DX: H25.811 Combined forms of age-related cataract, right eye (principal)
CPT/HCPCS: 66984; V2632

== ENCOUNTER → 2025-02-02 14:37 | Outpatient (REF) | payer OTHER, SELFPAY ==
[2025-02-02 15:34] LABS: Hematocrit 51.0 % (39.0-52.0); Hemoglobin 16.5 g/dL (13.0-18.0); Mean Corp Hgb Conc. 32.4 g/dL (33.0-37.0); Mean Corpuscular Volume 96.0 fL (80.0-94.0); Nucleated Red Blood Cells % 0 % (-); Platelet Count 113 10^3/uL (130-400); Red Cell Dist. Width 15.0 % (11.5-14.5)
[2025-02-02 16:40] LABS: ALT (SGPT) 22 U/L (0-50); AST (SGOT) 20 U/L (17-59); Albumin 3.7 g/dl (3.5-5.0); Alkaline Phosphatase 124 U/L (38-126); Blood Urea Nitrogen 23 mg/dl (9-20); Calcium 8.8 mg/dl (8.4-10.2); Carbon Dioxide 36 mmol/L (22-30); Chloride 98 mmol/L (98-107); Glucose 62 mg/dl (70-99); HDL Cholesterol 30 mg/dl; LDL Cholesterol, Calculated 22 mg/dl; Potassium 4.5 mmol/L (3.5-5.1); Sodium 139 mmol/L (135-145); Total Protein 6.6 g/dl (6.3-8.2); Very Low Density Lipoprotein 6 mg/dl (0-30); eGFR > 60.00
[2025-02-02 17:49] LABS: PSA, Total - Screen 0.35 ng/ml (0.0-4.0); TSH 2.33 uIU/ml (0.47-4.68)
[2025-02-03 10:12] LABS: Glycohemoglobin (HgbA1c) 5.4 % (4.0-5.6)
== END ==
LOC: REG 14:37
PROVIDERS: ATTENDING PHYSICIAN Internal Medicine
DX: E03.8 Other specified hypothyroidism (principal)
CPT/HCPCS: 36415; 80053; 80061; 83036; 84439; 84443; 85025; G0103

== ENCOUNTER → 2025-03-05 07:46 | Outpatient (REF) | payer OTHER, SELFPAY | LOC: WOUND 07:46 | PROVIDERS: ATTENDING PHYSICIAN Surgery; FAMILY PHYSICIAN Internal Medicine | DX: I87.313 Chronic venous hypertension (idiopathic) with ulcer of bilateral lower extremity (principal); L97.211 Non-pressure chronic ulcer of right calf limited to breakdown of skin; L97.221 Non-pressure chronic ulcer of left calf limited to breakdown of skin; I73.9 Peripheral vascular disease, unspecified; I87.2 Venous insufficiency (chronic) (peripheral); I50.22 Chronic systolic (congestive) heart failure; Z72.0 Tobacco use; I27.20 Pulmonary hypertension, unspecified | CPT/HCPCS: 99204; 99406 ==

== ENCOUNTER → 2025-03-12 14:08 | Outpatient (REF) | payer OTHER, SELFPAY | LOC: WOUND 14:08 | PROVIDERS: ATTENDING PHYSICIAN Surgery; FAMILY PHYSICIAN Internal Medicine | DX: I87.313 Chronic venous hypertension (idiopathic) with ulcer of bilateral lower extremity (principal); L97.211 Non-pressure chronic ulcer of right calf limited to breakdown of skin; L97.221 Non-pressure chronic ulcer of left calf limited to breakdown of skin; I73.9 Peripheral vascular disease, unspecified; I87.2 Venous insufficiency (chronic) (peripheral); I50.22 Chronic systolic (congestive) heart failure; I27.20 Pulmonary hypertension, unspecified; Z72.0 Tobacco use | CPT/HCPCS: 97597 ==

== ENCOUNTER → 2025-03-22 14:41 | Outpatient (REF) | payer OTHER, SELFPAY | LOC: WOUND 14:41 | PROVIDERS: ATTENDING PHYSICIAN Surgery; FAMILY PHYSICIAN Internal Medicine | DX: I87.313 Chronic venous hypertension (idiopathic) with ulcer of bilateral lower extremity (principal); L97.321 Non-pressure chronic ulcer of left ankle limited to breakdown of skin; L97.221 Non-pressure chronic ulcer of left calf limited to breakdown of skin; I73.9 Peripheral vascular disease, unspecified; I87.2 Venous insufficiency (chronic) (peripheral); I50.22 Chronic systolic (congestive) heart failure; Z72.0 Tobacco use; I27.20 Pulmonary hypertension, unspecified | CPT/HCPCS: 99213 ==

== ENCOUNTER → 2025-03-25 14:25 | Outpatient (REF) | payer OTHER, SELFPAY | LOC: RAD 14:25 | PROVIDERS: ATTENDING PHYSICIAN Surgery; FAMILY PHYSICIAN Internal Medicine | DX: I87.313 Chronic venous hypertension (idiopathic) with ulcer of bilateral lower extremity (principal); I73.9 Peripheral vascular disease, unspecified; I87.2 Venous insufficiency (chronic) (peripheral) | CPT/HCPCS: 93922; 93970 ==

== ENCOUNTER 2025-03-31 23:02 | Inpatient (IN) | payer OTHER, SELFPAY ==
[2025-03-31 20:10] VITALS: BP 158/73
[2025-03-31 20:55] LABS: Hematocrit 47.4 % (39.0-52.0); Hemoglobin 14.4 g/dL (13.0-18.0); Mean Corp Hgb Conc. 30.4 g/dL (33.0-37.0); Mean Corpuscular Volume 100.6 fL (80.0-94.0); Nucleated Red Blood Cells % 0 % (-); Red Cell Dist. Width 15.8 % (11.5-14.5)
[2025-03-31 21:00] VITALS: BP 175/114
[2025-03-31] MEDS: DUONEB 3 ML INH (21:03)
[2025-03-31] MEDS: DECADRON 10 MG IV (21:03)
[2025-03-31 21:06] LABS: Platelet Count 95 10^3/uL (130-400)
[2025-03-31 21:07] LABS: Blood Urea Nitrogen 29 mg/dl (9-20); Calcium 8.3 mg/dl (8.4-10.2); Chloride 97 mmol/L (98-107); Glucose 100 mg/dl (70-99); Sodium 139 mmol/L (135-145); eGFR > 60.00
[2025-03-31 21:10] VITALS: BMI 20.4
[2025-03-31 21:19] LABS: Troponin I 0.043 ng/ml
[2025-03-31 21:25] LABS: Carbon Dioxide 42 mmol/L (22-30)
[2025-03-31 22:00] VITALS: BP 190/95
--- NOTE | 2025-03-31 22:16 | ED.GENMED ---
History of Present Illness
General
Chief Complaint: Breathing Problem
Time Seen by Provider: 03/31/25 20:19
History of Present Illness
History of Present Illness:
79-year-old male with history of CHF, hypertension, COPD on 4 L O2, tobacco abuse presenting to the emergency department for cough and shortness of breath. Patient reports that symptoms have been ongoing for several days. Notes that the cough is
productive, yellow mucus. Reports history of pneumonia in the past. Denies any known fever. Notes some generalized chest discomfort. Also reports increased swelling to his lower extremities. Patient arrives by medics who report very poor
conditions to the house. Patient also arrives with a family friend who is a physician, notes that the house was essentially inhabitable and medics were going to report to [facility]. Patient arrives disheveled, poorly kept, contents of
stool on his extremities. Patient reports that he routinely follows with his doctors, and is compliant with his medications. No additional history obtained at this time
Past History
Past History
ED Past Medical History: COPD
ED Past Surgical History: None
Social History
Tobacco: Smoker
Phy Exam
Physical Exam
Physical Exam:
General: Disheveled
HEENT: protecting airway, generalized swelling and edema to the face including the upper eyelids without erythema
Neck: appears supple
CV: Normal heart rate, regular rhythm
Resp: Tachypneic with increased work of breathing, rhonchi and expiratory wheezing bilaterally, with crackles at the bases
Abd: No distention, nontender
Extremities: +3 pitting edema to bilateral lower extremities, extending below the knee. Extremities symmetric in appearance
Neuro: alert, no focal neurologic deficit
: deferred
Rectal: deferred
Psych: Normal affect
Skin: Intact
Scores
Heart Failure Risk
Heart Failure Risk Score: Yes
History of Stroke or TIA: No
History of intubation for respiratory distress: No
Heart rate on ED arrival >/= 110: No
SaO2 <90% on arrival on room air: Yes
HR >/=110 during 3min walk test (or too ill to perform test): Yes
ECG has acute ischemic changes: No
Urea >/=12mmol/L (BUN 33.6mg/dL): No
Serum CO2>/=35mmol/L: Yes
Troponin I or T elevated to [place] Level (0.4mg/dL): No
NT-proBNP >/=5,000ng/L (5,000pg/ml): Yes
HF Risk Score: 6
Admission Status: VERY HIGH RISK 55.3% Consider admission to hospital
Course
Orders/Labs/Results
Orders:
Orders
03/31/25 20:03
Electrocardiogram (*1) Urgent
Reason for Study: Other
Other Reason for Exam: Respiratory Distress
Cardiac Monitoring- Treatment ONCE
EKG- Treatment ONCE
IV Insert/Care/Rem.- Treatment PRN
CR Chest - 2 Views Urgent
Comment:
Reason For Exam: respiratory distress
O2 Therapy [RESP] Urgent
Titrate/Wean O2 to maintain O2 sat greater than (%): 93
Special Instructions: TO MAINTAIN CONTINUOUS O2 SATS >/= 93%
Pulse Ox/cont/shift [RESP] Urgent
Quantity: 1
Special Instructions: continuous pulse ox
03/31/25 20:33
Basic Metabolic Panel Urgent
Complete Blood Count/With Diff Urgent
NT-proBNP Urgent
Troponin I Urgent
03/31/25 20:42
Dexamethasone Sod Phosphate [Decadron] 10 mg IV NOW STA
Ipratropium/Albuterol Sulfate [Duoneb] 3 ml INH R NOW STA
03/31/25 22:09
Azithromycin 500 mg/250 ml [Zithromax Infusion] 500 mg in 250 ml IV NOW
CefTRIAXone [Rocephin] 1,000 mg IV NOW STA
Furosemide [Lasix] 40 mg IV NOW STA
03/31/25 22:15
Nitroglycerin 100 mg/250 ml [Nitroglycerin Premix] 100 mg in 250 ml IV PER PROTOCOL
Currently infusing. Continue current dose and titrate:: Yes
Titrate to keep:: Other
Titrate to keep other:: SBP <170
Titrate by mcg/min:: 5 mcg/min, may increase by 10 mcg/min if dose > 20 mcg/min
Frequency of titrations (minutes):: every 3-5 minutes
Maximum dose in mcg/min:: 200
Begin to taper infusion when:: Remained at goal for 2hrs
Taper by mcg/min:: 5 mcg/min
Frequency of taper (minutes) if patient maintains goal:: 30
Taper to off?: Yes
If infusion off & no longer maintaining goal:: Contact Provider
03/31/25 22:17
COVID-19 Antigen Urgent
Source: Nasal Swab
Influenza A+B Rapid Molecular Urgent
DRISS Source: Nasal Swab
Specimen Description:
03/31/25 22:22
Sterile Water [Sterile Water For Injection] 10 ml .ROUTE .[facility]
03/31/25 22:40
Bipap [RESP] Urgent
Patient to use own unit?: No
Inspiratory Pressure (cm H2O): 12
Expiratory Pressure (cm H2O): 5
Abnormal Lab Results
03/31/25
20:33
MCV 100.6 H fL
(80.0-94.0)
MCHC 30.4 L g/dL
(33.0-37.0)
RDW 15.8 H %
(11.5-14.5)
Plt Count 95 L 10^3/uL
(130-400)
Absolute Lymphs (auto) 0.5 L 10^3/uL
(1.2-3.4)
Neutrophils % 82.9 H %
(42.2-75.2)
Lymphocytes % 7.8 L %
(20.5-51.1)
Chloride 97 L mmol/L
(98-107)
Carbon Dioxide 42 H mmol/L
(22-30)
BUN 29 H mg/dl
(9-20)
Creatinine 0.4 L mg/dL
(0.7-1.3)
Glucose 100 H mg/dl
(70-99)
Calcium 8.3 L mg/dl
(8.4-10.2)
Troponin I 0.043 H* ng/ml
03/31/25 20:33
03/31/25 20:33
Vital Signs
Initial and Last Documented VS:
Initial Vital Signs
Temp Pulse Resp BP Pulse Ox
97.6 F 70 18 158/73 97
03/31/25 20:10 03/31/25 20:10 03/31/25 20:10 03/31/25 20:10 03/31/25 20:10
Last Documented Vital Signs
Temp Pulse Resp BP Pulse Ox
97.6 F 64 17 190/95 96
03/31/25 20:10 03/31/25 22:22 03/31/25 22:00 03/31/25 22:22 03/31/25 22:17
MDM/Problems Addressed
MDM/Problems Addressed:
79-year-old male with history of hypertension, tobacco abuse, COPD on 4 L O2, CHF presenting to the emergency department for shortness of breath and cough. Vital signs on arrival are significant for hypoxia and hypertension.
On exam, patient in no acute distress, improved on increase supplemental O2. Patient with mild increased work of breathing, noted to have crackles/rhonchi/wheezing, with additional signs of volume overload on exam. Patient with significant lower
extremity edema, also edema to the face. Suspect mixed picture for patient's presenting symptoms. Patient reports productive cough, rattling cough in examination room. Concern for pneumonia, with additional COPD exacerbation. However, known
history of CHF with a EF 30 to 35%. Concern for concomitant CHF exacerbation. Patient started on steroids and a DuoNeb from the COPD component. Will obtain chest x-ray imaging, laboratory analysis for evaluation of pneumonia and CHF.
22:20 - Patient's BNP is elevated and chest x-ray shows evidence of pulmonary edema, in keeping with CHF. Intermittent episodes of desaturation, improved with increased oxygen support. Patient's blood pressure remains elevated. In the setting of
CHF exacerbation, will start patient on nitro drip. Will also start patient on Lasix. Also possible subtle infiltrate on the right side of the lung. Will start patient on antibiotics for community-acquired pneumonia, with productive cough and
known COPD patient. Ultimate plan for admission for concern of COPD/CHF/pneumonia. Patient and sister updated at bedside. Also recommendation for family welfare social work professor consultation, with known unsuitable living condition upon disposition home.
*Pulse Oximetry
SaO2: 96
Nasal Cannula flow liters per minute: 5
Patient hypoxic: yes
*EKG
Interpreted by ED Provider?: Yes
EKG Intrepretation Date: 03/31/25
EKG Intrepretation Time: 22:20
Interpretation: abnormal
Comparison EKG: no changes (01/31/24)
Heart Rate: 65
Rate: normal
Rhythm: sinus
Interval: normal interval
QRS Pattern: left vent hypertrophy
Ischemia: non-specific ST changes
*Critical Care Note
Total Time (30-74mins, 75-104mins- exclusive of procedures): 47
comment:
The high probability of a clinically significant, sudden or life threatening deterioration of the cardiopulmonary system(s) required my full and direct attention, intervention and personal management. The aggregate critical care time was 47 minutes.
This time is in addition to time spent performing reported procedures but includes the following:
[x] Data Review and interpretation
[x] Patient assessment and monitoring of vital signs
[x] Documentation
[x] Medication orders and management
ED Attending Note
-
Portions of this chart may have been created with voice recognition software.� Occasional wrong word or��sound alike� substitutions may have occurred due to the inherent limitations of voice recognition software.
Discharge Plan
Departure
Patient Disposition: Admit
Date of Disposition: 03/31/25
Time of Disposition: 22:30
Presentation/result/management discussed w/ accepting MD/DO: Hospitalist
Patient with high blood pressure during this ER visit?: Yes
Condition: Critical
Discharge Problem:
Acute exacerbation of CHF (congestive heart failure), COPD (chronic obstructive pulmonary disease), Hypertensive urgency
Prescriptions:
No Action
lisinopril 5 mg tablet
5 mg PO DAILY
spironolactone 25 mg Tablet
12.5 mg PO DAILY 30 Days Qty: 30 0RF
carvedilol 3.125 mg Tablet
3.125 mg PO BID 30 Days Qty: 60 0RF
aspirin 81 mg Tablet,Chewable
81 mg PO DAILY 30 Days Qty: 30 0RF
atorvastatin [Lipitor] 40 mg tablet
40 mg PO DAILY
tamsulosin 0.4 mg capsule
0.4 mg PO HS
fluticasone propion-salmeterol 250-50 mcg/dose Blister With Device
1 inh INHALATION R BID
ibuprofen [Advil] 200 mg Tablet
400 mg PO TID
Referrals:
Tu Jones DO [Family Provider, Internal Medicine]
Interventions
Interventions:
*Risk Screen - Suicide Last Done: 03/31/25 20:04
*General Assessment Last Done: 03/31/25 20:44
*Neglect/Abuse Screening Last Done: 03/31/25 20:04
*ED- Fall Risk Assessment Last Done: 03/31/25 20:42
*ED COVID-19 Vaccine History Last Done: 03/31/25 20:42
*ED Influenza Vaccine History Last Done: 03/31/25 20:42
ED- Cardiac Assessment Last Done: 03/31/25 20:45
ED- Pulmonary Assessment Last Done: 03/31/25 20:54
Discharge Date and Time
Print Language: SWEDISH
[2025-03-31] MEDS: LASIX 40 MG IV (22:22)
[2025-03-31] MEDS: ZITHROMAX INFUSION 250 IV (22:23)
[2025-03-31] MEDS: ROCEPHIN 1000 MG IV (22:23)
--- NOTE | 2025-03-31 22:43 | EDRN ---
patient having frequent episodes of desaturation on 5L NC where he requires use of nonrebreather. after several minutes of use on nonrebreather, patient's saturation increases to >95% and he is switched back to nasal canula. patient maintains
saturations above 95% for several minutes, then desats again. José Miguel notified, bipap ordered.
[2025-03-31 22:47] LABS: COVID-19 Antigen Negative (Negative)
[2025-03-31 23:00] VITALS: BP 166/89
--- NOTE | 2025-03-31 23:08 | HPS.HSE ---
Family Physician
-
Family Physician: Tu Jones
Chief Complaint
-
SOB, Weakness
History of Present Illness
Patient is a 79y M with PMH significant for COPD and CHF who presents to ED complaining of weakness and shortness of breath. Patient states that he has had increasing shortness of breath 'for a long time'. He has been increasingly weak.
Patient states that he has been unable to get up from the couch for the past two days. He has a chronic, non-productive cough and denies any changes. No fevers / chills. No chest pain / palpitations.
He wears O2 at night - 1 lpm.
He continues to smoke daily.
Medical History
Past Medical History
Past Medical History: Reports Other
Additional Past Medical History:
COPD
Chronic Nocturnal Hypoxemia
HFrEF
Hypertension
BPH
Past Surgical History: Reports Other
Additional Past Surgical History:
Cataracts
Social History
Tobacco: Smoker (Current every day smoker.)
Alcohol: None
Drug: None
Family History
Family History: Not pertinent
Allergies / Home Medications
Allergies reflects when Allergies were last updated in [facility].
Home Medications with original date entered in [facility]
Allergy/Medication List:
Allergies
Allergy/AdvReac Type Severity Reaction Status Date / Time
No Known Allergies Allergy Verified 03/31/25 20:10
Home Medications
lisinopril 5 mg tablet 5 mg PO DAILY blood pressure 01/31/24
aspirin 81 mg chewable tablet 81 mg PO DAILY 30 days #30 tabs 02/05/24
carvedilol 3.125 mg tablet 3.125 mg PO BID 30 days #60 tabs 02/05/24
spironolactone 25 mg tablet 12.5 mg (1/2 x 25 mg) PO DAILY 30 days #30 tabs 09/11/24
atorvastatin 40 mg tablet (Lipitor) 40 mg PO DAILY 10/22/24
tamsulosin 0.4 mg capsule 0.4 mg PO HS Urinary Issue 10/22/24
fluticasone 250 mcg-salmeterol 50 mcg/dose blistr powdr for inhalation 1 inh inhalation R BID 10/26/24
ibuprofen 200 mg tablet (Advil) 400 mg PO TID mild pain 03/31/25
Review of Systems
-
History Source: Patient
A 12 point ROS was completed and negative except as noted: Yes
Constitutional: Reports Fatigue; Denies Fever or Chills
EENT: Denies Sore Throat
Respiratory: Reports Cough and Trouble Breathing
Cardiac: Denies Chest Pain, Diaphoresis or Palpitations
Abdomen/GI: Denies Abdominal Pain, Nausea, Vomiting or Diarrhea
: Denies Dysuria or Frequency
Musculoskeletal: Reports Edema
Neurological: Denies Dizzy or Headache
Psych: Denies Depression or Anxiety
Physical Exam
Vital Signs
Vital Signs
Temp Pulse Resp BP Pulse Ox
97.6 F 64 17 190/95 96
03/31/25 20:10 03/31/25 22:22 03/31/25 22:00 03/31/25 22:22 03/31/25 22:17
Physical Exam
General: Other (79y M in mild distress due to SOB (+/- BiPAP mask).)
HEENT: Other (Supple, Pos JVD)
Respiratory: Other (Scattered rales throughout all lung lopez. Prolonged expiration, faint end-expiratory wheeze.)
Cardiac: S1/S2, Regular Rhythm and Murmur (II/ NATALI)
GI: Soft, Non Tender, Non Distended, Normal Bowel Sounds and Other (Voluntary guarding.)
Musculoskeletal: Other (2-3+ pitting edema bilateral LEs to the scrotum.)
Neuro: AO x 3
Laboratory Results
-
03/31/25 20:33
03/31/25 20:33
Laboratory Results
Total Bilirubin Cancelled 03/31/25 20:33
AST Cancelled 03/31/25 20:33
ALT Cancelled 03/31/25 20:33
Alkaline Phosphatase Cancelled 03/31/25 20:33
Troponin I 0.043 ng/ml H* 03/31/25 20:33
Impression/Plan
-
A/P: Patient is a 79y M with PMH significant fro COPD and CHF who presents to ED complaining of increased SOB and fatigue.
Acute on Chronic HFrEF
Acute on Chronic Hypoxemic Respiratory Failure secondary to the above
Hypertensive Emergency secondary to the above
- Admit for further evaluation and treatment.
- Patient with marked peripheral edema, elevated BNP, hypertension and hypoxemia. CXR / exam consistent with pulmonary edema.
- IV Lasix BID. Follow I/Os, daily weights, etc.
- Continue BiPAP for now - wean to O2 support as tolerated.
- NTG ordered - but BP improved following IV Lasix and BiPAP - start IV NTG if BP becomes markedly elevated again.
- Update Echo (last in 04/2024 with LVEF = 35-40% and severe pulmonary hypertension).
- Cardiology evaluation for additional recommendations.
- Follow for clinical improvement with diuresis.
Abnormal Troponin - Unknown Type
- Suspect non-ischemic myocardial injury due to CHF / hypoxemia.
- EKG with non-specific ST-T changes. Initial troponin = 0.043.
- Follow troponin to peak.
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
- Cardiology evaluation as noted above.
- Continue CV med regimen including ASA, statin, etc.
COPD
- No wheezing on exam - though likely some component also contributing to his current dyspnea.
- Nebs ATC and PRN. Budesonide nebs.
- Continue O2 support.
- Follow for clinical changes.
- Patient continues to be an active smoker.
BPH
- Continue tamsulosin. Bladder scan protocol.
DVT Prophylaxis: Lovenox
Code Status: Full
[2025-03-31 23:30] VITALS: BP 146/83
[2025-04-01] VITALS (13 sets, daily range): BP systolic 134–162; BP diastolic 56–87; BMI 19.6
--- NOTE | 2025-04-01 01:13 | PTCARENOTE ---
received patient from ED. Patient on bipap upon arrival but switched to 8L midflow, satting at 98%. Patient is AA0x3 but uncooperative and agitated at times. Patient very dirty on arrival. CHG, bathing cloths and soap and water to wash up patient.
Patient has male incontinence device on. Patient has multiple wounds on arrival, see mar. All care done to the limits allowed by patient. Patient keeps asking for food, this RN explained that patient is NPO but patient keeps insisting on eating.
assessment and vital signs charted. call mcconnell in reach.
--- NOTE | 2025-04-01 01:50 | PTCARENOTE ---
patient's eye lids are swollen and dropping. patient said 'this has been going on for awhile because of the fluid buildup'. Asked patient if his vision is being affected and he said 'no it will go away once the fluid is off'. continuing to
monitor. call mcconnell in reach.
[2025-04-01 02:11] LABS: Hematocrit 46.3 % (39.0-52.0); Hemoglobin 14.6 g/dL (13.0-18.0); Mean Corp Hgb Conc. 31.5 g/dL (33.0-37.0); Mean Corpuscular Volume 97.5 fL (80.0-94.0); Platelet Count 90 10^3/uL (130-400); Red Cell Dist. Width 15.7 % (11.5-14.5)
[2025-04-01 02:22] LABS: Blood Urea Nitrogen 26 mg/dl (9-20); Calcium 8.3 mg/dl (8.4-10.2); Chloride 95 mmol/L (98-107); Estimated Creatinine Clearance 107 ml/min; Glucose 105 mg/dl (70-99); HDL Cholesterol 30 mg/dl; LDL Cholesterol, Calculated 30 mg/dl; Magnesium 2.0 mg/dl (1.6-2.3); Potassium 4.2 mmol/L (3.5-5.1); Sodium 139 mmol/L (135-145); Very Low Density Lipoprotein 12 mg/dl (0-30); eGFR > 60.00
[2025-04-01 02:28] LABS: Carbon Dioxide 43 mmol/L (22-30)
[2025-04-01 03:14] LABS: Troponin I 0.054 ng/ml
[2025-04-01] MEDS: PULMICORT 0.5 MG INH ×2 (07:32→19:20)
[2025-04-01] MEDS: DUONEB 3 ML INH ×3 (07:32→19:20)
[2025-04-01 08:32] LABS: Troponin I 0.056 ng/ml
[2025-04-01] MEDS: LASIX 40 MG IV ×2 (09:08→17:08)
[2025-04-01] MEDS: ALDACTONE 12.5 MG PO (09:14)
[2025-04-01] MEDS: COREG 3.125 MG PO ×2 (09:16→20:39)
[2025-04-01] MEDS: LOW STRENGTH ASPIRIN 81 MG PO (09:17)
--- NOTE | 2025-04-01 09:34 | CON.CAR ---
Addendum entered and electronically signed by Dmitry Kern DO 04/01/25 17:33:
I saw and examined the patient.
The Sales Operations Coordinator's note was reviewed and I agree with the note.
Comment:
Plan:
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
04/2024, pulmonary hypertension, hypertension, hyperlipidemia who presented to [facility] emergency room last evening due to complaints of cough and shortness of breath. He reports the symptoms have been progressively worsening over the
last several weeks. Also reports associated lower extremity edema as well as swelling of his eyelids and under eyes. When medics arrived to his home to bring him in, they noted very poor conditions to his home, and apparently patient had contents
of the stool on his extremities in ER. He lives independently. proBNP 11,000. Cardiology consulted for evaluation of heart failure.
Cont IV diuresis
Check echo
PT/OT
HF teaching
Continue outpatient regimen of GDMT including Coreg, lisinopril, spironolactone. SGLT2 inhibitors have been too costly in past
Cont medical therapy of nonMI troponin
Last cath from 01/2024 with nonobstructive CAD
Cont pulm toilet for component of acute COPD exacerbation
Smoking cessation discussed and is a must
Case management consult as medics noted patient in very poor living conditions
Original Note:
Consultation
Consultation Request
Date/Time Consultation Performed: 04/01/25
Requesting Provider: Dr. Nava
Performing Provider: Lashell Gaspar PA-C for Dr. Kern
Reason for Consultation: CHF
Medical History
-
Chief Complaint: SOB
History of Present Illness:
Patient is a 78-year-old male with past medical history of ongoing tobacco use and COPD on chronic home O2, chronic systolic congestive heart failure, nonischemic cardiomyopathy with nonobstructive CAD by cath 01/2024, EF most recently 35 to 40%
04/2024, pulmonary hypertension, hypertension, hyperlipidemia who presented to [facility] emergency room last evening due to complaints of cough and shortness of breath. He reports the symptoms have been progressively worsening over the
last several weeks. Also reports associated lower extremity edema as well as swelling of his eyelids and under eyes. When medics arrived to his home to bring him in, they noted very poor conditions to his home, and apparently patient had contents
of the stool on his extremities in ER. He lives independently. proBNP 11,000. Cardiology consulted for evaluation of heart failure.
PMH:
Chronic heart failure with reduced EF
Nonischemic cardiomyopathy, EF 35 to 40% by echo 04/2024
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
Severe pulmonary hypertension
COPD, on chronic home O2
HTN
Ongoing tobacco use
FH of CAD
Past Medical History
Past Medical History: Other (in HPI)
Social History
Tobacco: Smoker
Alcohol: None
Living: Alone
Employment: Employed
Family History
Family History: CAD
Allergies / Home Medications
Allergy/AdvReac Type Severity Reaction Status Date / Time
No Known Allergies Allergy Verified 03/31/25 20:10
�Medication �Instructions �Recorded �Confirmed �Type
lisinopril 5 mg tablet 5 mg PO DAILY blood pressure 01/31/24 03/31/25 History
aspirin 81 mg chewable tablet 81 mg PO DAILY 30 days #30 tabs 02/05/24 03/31/25 Rx
carvedilol 3.125 mg tablet 3.125 mg PO BID 30 days #60 tabs 02/05/24 03/31/25 Rx
spironolactone 25 mg tablet 12.5 mg (1/2 x 25 mg) PO DAILY 30 02/05/24 03/31/25 Rx
days #30 tabs
atorvastatin 40 mg tablet (Lipitor) 40 mg PO DAILY 10/22/24 03/31/25 History
tamsulosin 0.4 mg capsule 0.4 mg PO HS Urinary Issue 10/22/24 03/31/25 History
fluticasone 250 mcg-salmeterol 50 1 inh inhalation R BID 10/26/24 03/31/25 History
mcg/dose blistr powdr for
inhalation
ibuprofen 200 mg tablet (Advil) 400 mg PO TID mild pain 03/31/25 03/31/25 History
Review of Systems
-
History Source: Patient
All other systems: Negative unless noted
Physical Exam
Vital Signs
Temp Pulse Resp BP Pulse Ox
97.4 F 64 12 158/87 99
04/01/25 07:15 04/01/25 09:16 04/01/25 07:34 04/01/25 09:16 04/01/25 07:34
Lab Results
04/01/25 01:27
04/01/25 01:27
Troponin I 0.056 ng/ml H* 04/01/25 07:43
Dbd-W-Jmirhjngbxk Pept 55369 pg/ml 03/31/25 20:33
Physical Exam
General: No Apparent Distress and Other (Appears disheveled. On supplemental O2. productive cough)
HEENT: Normocephalic, Anicteric, Moist Mucous Membranes and Other (Edema of bilateral eyelids and under eyes)
Respiratory: Wheezes, Crackles and Non Labored Respirations
Cardiac: S1/S2 and Regular Rhythm
GI: Soft, Non Tender, Non Distended and Normal Bowel Sounds
Musculoskeletal: No Clubbing, No Cyanosis and Edema (3+ of B/L LE, LUE)
Skin: Warm and Dry
Neuro: AO x 3
Impression / Plan
-
Primary Supervisor Ovens: Dr. Christiansen
Assessment:
Presentation with SOB, cough
Acute on chronic heart failure with reduced EF
Nonischemic cardiomyopathy, EF 35 to 40% by echo 04/2024
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
Severe pulmonary hypertension
COPD, on chronic home O2
HTN
Thrombocytopenia
Ongoing tobacco use
FH of CAD
Poor living conditions per medics, lives alone
ECHO 04/2024: EF 35 to 40%, mild concentric LVH, global hypokinesis, decent apical septum with paradoxical septal motion, trace MR, normal TOLU, aortic sclerosis, severely dilated RV and RA with RV hypokinesis and PAP 99 mmHg, is very severe
pulmonary hypertension, atrial septal aneurysm without shunt
Plan:
- Patient presented with shortness of breath and cough.
- proBNP 11,000. Chest x-ray with small bilateral pleural effusions and with evidence of gross volume overload on examination. Continue IV Lasix 40 mg twice daily. Was not on diuretic prior to admission as of most recent office visit 12/23/2024.
Creatinine stable at 0.6
- Repeat echo, last from 04/2024 with EF 35 to 40%
- Continue outpatient regimen of GDMT including Coreg, lisinopril, spironolactone. SGLT2 inhibitors have been too costly in past
- Troponins flat in 0.05 range. EKG sinus rhythm with PVCs and NSSTS. suspect nonischemic myocardial injury in setting of acute CHF exacerbation. Will manage conservatively. Last cath from 01/2024 with nonobstructive CAD
- Would also treat for component of acute COPD exacerbation
- Case management consult as medics noted patient in very poor living conditions and he was noted to have stool on extremities on arrival. He currently lives alone.
- Tobacco cessation
- Discussed with nursing
Data Reviewed
-
EKG: Tracing Personally Visualized and interpreted
Radiology: Report Reviewed by me
Medical Tests (Nuc Med, Echo etc): Report Reviewed by me
Labs: Labs Reviewed by me
Old Records: Reviewed
[2025-04-01 09:40] LABS: Glycohemoglobin (HgbA1c) 5.4 % (4.0-5.9)
--- NOTE | 2025-04-01 11:15 | PTCARENOTE ---
Report received, assumed care. Patient chart, orders and lab results reviewed. See orbitread operator charted on worklist flowsheet. Denies pain, denies CP or SOB. Occasional loose cough noted. BBS diminished with faint scattered crackles t/o. Oxygen at
4L/nc. BLE edema 2+, periorbital edema noted. LUE edema 3+ most likely exacerbated by BP cuff. Switched BP cuff to right arm. Left arm elevated. BLE with pink discoloration/stasis dermatitis, 2+ edema. SR on CM with frequent MF PVCs. Burst of PAT
noted. Bilateral heels elevated off of bed, heel foams in place. Sacral foam in place. Wound care nurse at bedside to assess. Bed in low and locked position, call mcconnell within reach.
--- NOTE | 2025-04-01 13:24 | CM ---
I.A: Completed By ZEKE Locke.
Patient lives alone in a 1 Story Home, uses cane and Walker, uses 3-4 liters of oxygen at home with concentrator plus portable oxygen all through [employer]. Patient has had PT in the past, unsure name, not sure about Inpatient Rehab.
PCP: Dr. Tu Jones
Pharmacy: [facility]
Patient says he has transportation home, but was hesitant at first. PLAN: Home PT vs. SNF
--- NOTE | 2025-04-01 13:59 | WOUNDNOTE ---
SACRAL COCCYX Stage 2
--- NOTE | 2025-04-01 14:07 | W.PN.HOSP.TC ---
Today's Communication/Plan
-
Monitor vitals
See plan
Continue with oxygenation
Continue with IV diuresis
Echo
Check Pro-Isacc
Assessment / Plan
Assessment / Plan
General: No acute distress
HEENT: Anicteric, pink conjunctiva
Respiratory: Other (Scattered rales throughout all lung lopez. Prolonged expiration, faint end-expiratory wheeze.)
Cardiac: S1/S2, Regular Rhythm and Murmur (II/ NATALI)
GI: Soft, Non Tender, Non Distended, Normal Bowel Sounds and Other (Voluntary guarding.)
Musculoskeletal: Other (2-3+ pitting edema bilateral LEs to the scrotum.)
Neuro: AO x 3
Acute on Chronic HFrEF
Acute on Chronic Hypoxemic Respiratory Failure secondary to the above
Hypertensive Emergency secondary to the above
On 4 L nasal cannula chronically at home
- Patient with marked peripheral edema, elevated BNP, hypertension and hypoxemia. CXR / exam consistent with pulmonary edema.
- IV Lasix BID. Follow I/Os, daily weights, etc.
Was on BiPAP on admission, now weaned down to nasal cannula
- Update Echo (last in 04/2024 with LVEF = 35-40% and severe pulmonary hypertension).
Cardiology follow
- Follow for clinical improvement with diuresis.
Chest x-ray with large left lower lobe airspace consolidation. Check Pro-Isacc. Consider pulmonary evaluation.
Abnormal Troponin -likely nonischemic myocardial injury
- Suspect non-ischemic myocardial injury due to CHF / hypoxemia.
- EKG with non-specific ST-T changes. Initial troponin = 0.043.
- Follow troponin to [facility].
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
- Cardiology evaluation as noted above.
- Continue CV med regimen including ASA, statin, etc.
COPD
likely some component also contributing to his current dyspnea.
- Nebs ATC and PRN. Budesonide nebs.
- Continue O2 support.
- Follow for clinical changes.
- Patient continues to be an active smoker. Continue with nicotine patch
History of hypertension
Continue lisinopril, Coreg
Hyperlipidemia
Tobacco use with abuse
Cessation advised
Continue with nicotine patch
BPH
- Continue tamsulosin. Bladder scan protocol.
DVT Prophylaxis: Lovenox
Code Status: Full
I spent a total of 52 minutes with the patient or on the floor. More than 50% of this time involved counseling and coordination of care.
Anticipated Discharge: > 48 hours
Subjective/Interval History
-
Date of Service: April 01, 2025
denies pain
Objective Data
-
Labs:
Laboratory Results
04/01/25
01:27
WBC 6.4
Hgb 14.6
Hct 46.3
Plt Count 90 L
Sodium 139
Potassium 4.2
Chloride 95 L
Carbon Dioxide 43 H
BUN 26 H
Creatinine 0.6 L
Glucose 105 H
Calcium 8.3 L
Vital Signs:
Vital Signs
Temp Pulse Resp BP Pulse Ox
97.4 F 55 16 162/76 99
04/01/25 11:03 04/01/25 11:13 04/01/25 11:13 04/01/25 10:00 04/01/25 11:13
I&O
03/31/25 04/01/25 04/02/25
06:59 06:59 06:59
Output Total 1650 / 1650 1000 / 1000
Balance -1650 / -1650 -1000 / -1000
--- NOTE | 2025-04-01 14:11 | WOUNDNOTE ---
WO RN note: Patient admitted with SOB and weakness
See H&P for complete history.
PMH: PMH significant for COPD and CHF who presents to ED complaining of weakness and shortness of breath. Patient also has history of HF, HTN and BPH and is a current smoker. Per chart review, case management consult as medics noted patient in
very poor living conditions and he was noted to have stool on extremities on arrival. He currently lives alone.
Wound Location and type/assessment: Patient admitted with stage 2 to sacral coccyx. There appear to be 3 superficial open areas and were measured in cluster. Patient said he was not aware of wounds. Patient incontinent of stool during assessment.
RN Torrie made aware. Patient also have venous stasis changes to LE. Patient known to [facility] and no open wounds were present at time of admission. Heels with adherent stool even after washed by nursing last night and this automobile service writer today. Suspect stage 1
PI to heels as they did not appear to be blanchable. Male external catheter in place for moisture management.
Appetite: Fair, per patient. BMI is 19.
Pressure redistribution devices in place: Centrella Max Air, Turning schedule, heels off-loaded with pillow under calves.
Plan: Calazime and sacral foam to coccyx. No-sting barrier and adhesive foam to heel. Mineral oil to dry skin on LE. Patient declines compression at this time and expressed other things are more important to him right now. Will confirm orders with
hospitalist and update nurse. Updated care plan and will follow as needed.
Note to case management of equipment requested for discharge:
Recommend follow up at wound care center upon discharge.
--- NOTE | 2025-04-01 15:00 | PTCARENOTE ---
Patient has declined ECHO due to eating lunch. Incontinent stool, cares given, linens changed, External male purewick leaking and changed.
[2025-04-01 15:07] LABS: Troponin I 0.045 ng/ml
[2025-04-01 15:11] LABS: Procalcitonin < 0.05 ng/ml (0.0-0.25)
[2025-04-01] MEDS: DUONEB INH (15:18)
--- NOTE | 2025-04-01 16:50 | PTCARENOTE ---
Dr Nava notified that patient LUE continues to be quite swollen despite cuff location change and elevation. Concern for blood clot. New orders received for LUE U/S.
[2025-04-01] MEDS: LOVENOX 40 MG SC (17:08)
--- NOTE | 2025-04-01 19:07 | PTCARENOTE ---
Report given verbally to oncoming shift, Myrna MOFFETT. Bedside rounds completed. Questions answered.
[2025-04-01] MEDS: FLOMAX 0.4 MG PO (20:39)
[2025-04-02] VITALS (18 sets, daily range): BP systolic 121–177; BP diastolic 60–104; BMI 19.4; BMI 19.2
[2025-04-02 04:55] LABS: Hematocrit 41.8 % (39.0-52.0); Hemoglobin 13.3 g/dL (13.0-18.0); Mean Corp Hgb Conc. 31.8 g/dL (33.0-37.0); Mean Corpuscular Volume 95.4 fL (80.0-94.0); Nucleated Red Blood Cells % 0 % (-); Platelet Count 94 10^3/uL (130-400); Red Cell Dist. Width 15.3 % (11.5-14.5)
[2025-04-02 05:13] LABS: Blood Urea Nitrogen 34 mg/dl (9-20); Calcium 7.5 mg/dl (8.4-10.2); Chloride 88 mmol/L (98-107); Estimated Creatinine Clearance 105 ml/min; Glucose 98 mg/dl (70-99); Potassium 3.6 mmol/L (3.5-5.1); Sodium 136 mmol/L (135-145); eGFR > 60.00
[2025-04-02 05:34] LABS: Carbon Dioxide 47 mmol/L (22-30)
--- NOTE | 2025-04-02 06:37 | PTCARENOTE ---
Caring for pt overnight. aaox3, pleasant. Denies pain. NSR PAC PVC , remains on 4LNC. Incontinent, male incontinent pads in place, working well. VSS. All dressings CDI. No other issues, will monitor.
[2025-04-02] MEDS: PULMICORT 0.5 MG INH ×2 (07:08→19:46)
[2025-04-02] MEDS: DUONEB 3 ML INH ×4 (07:08→19:46)
[2025-04-02] MEDS: ALDACTONE 12.5 MG PO (08:30)
[2025-04-02] MEDS: LOW STRENGTH ASPIRIN 81 MG PO (08:30)
[2025-04-02] MEDS: COREG 3.125 MG PO ×2 (08:30→20:19)
[2025-04-02] MEDS: LASIX 40 MG IV ×2 (08:31→17:18)
--- NOTE | 2025-04-02 10:15 | W.PN.CARDCBS ---
Today's Communication / Plan
-
Continue IV Lasix
Check echo
Impression / Plan
-
Primary Die Keeper: Dr. Christiansen
Assessment:
Presentation with SOB, cough
Acute on chronic heart failure with reduced EF
Nonischemic cardiomyopathy, EF 35 to 40% by echo 04/2024
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
Severe pulmonary hypertension
COPD, on chronic home O2
HTN
Thrombocytopenia
Ongoing tobacco use
FH of CAD
Poor living conditions per medics, lives alone
ECHO 04/2024: EF 35 to 40%, mild concentric LVH, global hypokinesis, decent apical septum with paradoxical septal motion, trace MR, normal TOLU, aortic sclerosis, severely dilated RV and RA with RV hypokinesis and PAP 99 mmHg, is very severe
pulmonary hypertension, atrial septal aneurysm without shunt
Plan:
- Patient presented with shortness of breath and cough admitted for treatment of CHF and COPD
- proBNP 11,000. Chest x-ray with small bilateral pleural effusions and with evidence of gross volume overload on examination.
- Continue IV Lasix 40 mg twice daily. Was not on diuretic prior to admission as of most recent office visit 12/23/2024. Creatinine stable at 0.6. Would recommend standing diuretic on discharge.
- Repeat echo, last from 04/2024 with EF 35 to 40%
- Continue outpatient regimen of GDMT including Coreg, lisinopril, spironolactone. SGLT2 inhibitors have been too costly in past.
- Troponins flat in 0.05 range. EKG sinus rhythm with PVCs and NSSTS. suspect nonischemic myocardial injury in setting of acute CHF exacerbation. Will manage conservatively. Last cath from 01/2024 with nonobstructive CAD
Progress Note - Die Keeper
Subjective
Date of Service: April 02, 2025
NAOE. Resting comfortably in the IMU. Tells me his peripheral edema is improved. Not reporting any chest discomfort or shortness of breath.
Objective
Labs:
04/02/25 04:34
04/02/25 04:34
Labs
Hgb 13.3 g/dL (13.0-18.0) 04/02/25 04:34
Hct 41.8 % (39.0-52.0) 04/02/25 04:34
Plt Count 94 10^3/uL (130-400) L 04/02/25 04:34
Sodium 136 mmol/L (135-145) 04/02/25 04:34
Potassium 3.6 mmol/L (3.5-5.1) 04/02/25 04:34
BUN 34 mg/dl (9-20) H 04/02/25 04:34
Creatinine 0.6 mg/dL (0.7-1.3) L 04/02/25 04:34
Glucose 98 mg/dl (70-99) 04/02/25 04:34
Troponins
03/31/25 04/01/25 04/01/25
20:33 01:27 07:43
Troponin I 0.043 H* 0.054 H* D 0.056 H*
04/01/25
14:37
Troponin I 0.045 H*
Vital Signs and I&O:
Vital Signs
Temp Pulse Resp BP Pulse Ox
98.1 F 59 18 153/82 96
04/02/25 07:09 04/02/25 07:10 04/02/25 07:10 04/02/25 07:09 04/02/25 07:10
Vital Signs
Temp Pulse Resp BP Pulse Ox
98.1 F 59 18 153/82 96
04/02/25 07:09 04/02/25 07:10 04/02/25 07:10 04/02/25 07:09 04/02/25 07:10
Intake & Output
03/31/25 04/01/25 04/02/25 04/03/25
06:59 06:59 06:59 06:59
Intake Total 1440 / 1440 360 / 360
Output Total 1650 / 1650 3960 / 3960 1000 / 1000
Balance -1650 / -1650 -2520 / -2520 -640 / -640
Physical Exam
Physical Exam
Gen: NAD, AA
HEENT: NC/AT, sclera anicteric
CV: RRR, NL s1/s2
Lungs: No increased WOB on 4L NC
Abd: S/ND
Ext: 1+ LE edema with overlying chronic venous stasis changes
Skin: Warm, dry
Neuro: Non-focal
--- NOTE | 2025-04-02 13:26 | W.PN.HOSP.TC ---
Today's Communication/Plan
-
Monitor vitals
See plan
Continue with nasal cannula
Start Doxy
Start I-S, Acapella
Mucinex
Continue with IV diuresis
Monitor renal function
Echo pending
dose of diamox
Pulmonary evaluation
Assessment / Plan
Assessment / Plan
General: No acute distress
HEENT: Anicteric, pink conjunctiva
Respiratory: Other (Scattered rales throughout all lung lopez. Prolonged expiration, faint end-expiratory wheeze.)
Cardiac: S1/S2, Regular Rhythm and Murmur (II/ NATALI)
GI: Soft, Non Tender, Non Distended, Normal Bowel Sounds
Musculoskeletal: Other (2-3+ pitting edema bilateral LEs to the scrotum.)
Neuro: AO x 3
Acute on Chronic HFrEF
Acute on Chronic Hypoxemic Respiratory Failure secondary to the above
Hypertensive Emergency secondary to the above
On 4 L nasal cannula chronically at home
- Patient with marked peripheral edema, elevated BNP, hypertension and hypoxemia. CXR / exam consistent with pulmonary edema.
- IV Lasix BID. Follow I/Os, daily weights, etc. echo pending
Was on BiPAP on admission, now weaned down to nasal cannula
- Update Echo (last in 04/2024 with LVEF = 35-40% and severe pulmonary hypertension).
Cardiology following
- Follow for clinical improvement with diuresis.
Chest x-ray with large left lower lobe airspace consolidation. Likely secondary to atelectasis from endobronchial obstruction. Consult pulmonary. Acapella. Mucinex. Pro-Isacc negative so doubt bacterial PNA
doxy to help for COPD
Abnormal Troponin -likely nonischemic myocardial injury
- Suspect non-ischemic myocardial injury due to CHF / hypoxemia.
- EKG with non-specific ST-T changes. Initial troponin = 0.043.
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
- Cardiology evaluation as noted above.
- Continue CV med regimen including ASA, statin, etc.
COPD
likely some component also contributing to his current dyspnea.
- Nebs ATC and PRN. Budesonide nebs.
- Continue O2 support.
- Follow for clinical changes.
- Patient continues to be an active smoker. Continue with nicotine patch
CXR noted above; pulmonary eval
acapella, IS. mucinex
doxy for COPD
Left upper extremity swelling
Ultrasound negative for DVT
Monitor
History of hypertension
Continue lisinopril, Coreg
Hyperlipidemia
Tobacco use with abuse
Cessation advised
Continue with nicotine patch
BPH
- Continue tamsulosin. Bladder scan protocol.
DVT Prophylaxis: Lovenox
Code Status: Full
PT
I spent a total of 52 minutes with the patient or on the floor. More than 50% of this time involved counseling and coordination of care.
Anticipated Discharge: > 48 hours
Subjective/Interval History
-
Date of Service: April 02, 2025
Does have some cough
Objective Data
-
Labs:
Laboratory Results
04/02/25
04:34
WBC 6.7
Hgb 13.3
Hct 41.8
Plt Count 94 L
Sodium 136
Potassium 3.6
Chloride 88 L
Carbon Dioxide 47 H
BUN 34 H
Creatinine 0.6 L
Glucose 98
Calcium 7.5 L
Vital Signs:
Vital Signs
Temp Pulse Resp BP Pulse Ox
98.1 F 71 27 146/98 96
04/02/25 07:09 04/02/25 12:00 04/02/25 12:00 04/02/25 12:00 04/02/25 12:23
I&O
04/01/25 04/02/25 04/03/25
06:59 06:59 06:59
Intake Total 1440 / 1440 360 / 360
Output Total 1650 / 1650 3960 / 3960 1000 / 1000
Balance -1650 / -1650 -2520 / -2520 -640 / -640
[2025-04-02] MEDS: OCEAN, SALINE MIST 2 SPRAYS NASAL (14:47)
[2025-04-02] MEDS: DIAMOX 125 MG PO (14:47)
[2025-04-02] MEDS: MUCINEX 1200 MG PO ×2 (14:47→21:14)
[2025-04-02] MEDS: VIBRAMYCIN 100 MG PO ×2 (14:47→21:14)
--- NOTE | 2025-04-02 15:05 | CON.PUL ---
Consultation
Consultation Request
Date/Time Consultation Requested: 04/02/2025
Date/Time Consultation Performed: 04/02/2025
Requesting Provider: Dr. Nava
Performing Provider: Dr. Remberto Hwang
Reason for Consultation: Abnormal chest x-ray/atelectasis
Medical History
-
History of Present Illness:
79-year-old male with past medical history significant for COPD, heart failure, hypertension and BPH who presented to the emergency room complaining of weakness and shortness of breath. Patient reports shortness of breath for quite some time.
He has increasingly become weaker. To the point that has been able to stand up from the couch past 2 days.
Reports nonproductive cough which is without change. No hemoptysis. No chest pain. Denies fevers or chills.
Usually on 4 L nasal cannula.
He continues to smoke cigarettes daily.
-
Patient reports weight loss over time.
He continues to smoke half a pack to a pack per day.
Reports chronic bronchitic symptoms
He is unable to afford inhalers.
He does not have a nebulizer.
Denies swallowing problems.
Denies GERD
Denies sick contacts
Past Medical History
Past Medical History: Other (See assessment and plan)
Social History
Tobacco: Smoker
Alcohol: None
Drug: None
Family History
Family History: Reviewed & Not Pertinent
Allergies / Home Medications
Allergies
Allergy/AdvReac Type Severity Reaction Status Date / Time
No Known Allergies Allergy Verified 03/31/25 20:10
Home Medications
�Medication �Instructions �Recorded �Confirmed �Last Taken �Type
lisinopril 5 mg tablet 5 mg PO DAILY blood pressure 01/31/24 03/31/25 03/31/25 History
aspirin 81 mg chewable tablet 81 mg PO DAILY 30 days #30 tabs 02/05/24 03/31/25 03/31/25 Rx
carvedilol 3.125 mg tablet 3.125 mg PO BID 30 days #60 tabs 02/05/24 03/31/25 03/31/25 Rx
spironolactone 25 mg tablet 12.5 mg (1/2 x 25 mg) PO DAILY 30 02/05/24 03/31/25 03/31/25 Rx
days #30 tabs
atorvastatin 40 mg tablet (Lipitor) 40 mg PO DAILY High Cholesterol 10/22/24 03/31/25 03/31/25 History
tamsulosin 0.4 mg capsule 0.4 mg PO HS Urinary Issue 10/22/24 03/31/25 03/30/25 History
fluticasone 250 mcg-salmeterol 50 1 inh inhalation R BID 10/26/24 03/31/25 03/31/25 History
mcg/dose blistr powdr for Lung/Breathing Issues
inhalation
ibuprofen 200 mg tablet (Advil) 400 mg PO TID mild pain 03/31/25 03/31/25 03/31/25 History
Review of Systems
-
History Source: Patient
All other systems: Negative unless noted
Vitals / Labs / Diagnostic Testing
Vital Signs
Temp Pulse Resp BP Pulse Ox
98.1 F 60 18 177/71 93
04/02/25 07:09 04/02/25 14:58 04/02/25 14:58 04/02/25 14:00 04/02/25 14:58
Lab Data
04/02/25 04:34
04/02/25 04:34
Microbiology
03/31/25 22:17 Nasal Swab Influenza Types A & B (LEV) - Final
Negative for Influenza A & B, NAAT
Negative results must be combined with clinical observations
and patient history.
Nucleic Acid Amplification test (NAAT)performed on the
[employer] platform.
Diagnostic Testing:
Physical Exam
-
HEENT: Normocephalic
Cardiovascular: S1/S2 and Peripheral Edema (Chronic stasis changes-wrinkles suggesting post diuresis.)
Respiratory: Wheeze (n), Non-Labored Respirations and Other (Decreased breath sounds bilaterally.)
GI: Soft and Distended
Neurology: Awake, AO x 3 and No Motor Deficits
Skin: Warm
General: Comfortable and Other (Cachectic)
Assessment
-
79-year-old man smoker with history of heart failure with reduced ejection fraction ejection fraction approximately 40%, COPD, ongoing smoking reports progressive fatigue and weakness. Unable to get of his couch for the last 2 days. He does report
chronic progressive shortness of breath over several months to years.
We were consulted on 04/02/2027 for an abnormal chest imaging.
Abnormal chest x-ray: Large left lower lobe airspace consolidation. Small left pleural effusion. Moderate cardiomegaly. Increased interstitial markings suggestive of pulmonary edema.
Acute respiratory insufficiency
Acute on chronic heart failure with reduced ejection fraction.
proBNP 11,000
Chest x-ray with pulmonary vascular congestion
Echocardiogram 04/02/2025: Ejection fraction 40 to 45%. Severely dilated right ventricular size. Moderate TR. Left pleural effusion seen. No significant change compared to April 2024
COPD-not in acute exacerbation.
PFT 04/10/2024: Severe gas exchange abnormality. FEV1 postbronchodilator 1.08 L - 33%.
Chronic hypoxemic respiratory failure follows up with Dr. Peralta last 6-minute walk testing 01/26/2025 patient required 4 L supplemental oxygen with ambulation.
Usually on nocturnal oxygen
On BREO
tried on Trelegy and BREztri.
CT chest 02/01/2024: Reviewed.
No pulmonary embolism. Mild emphysema. Biapical scarring. Mild bilateral pleural effusion. Cardiomegaly. No lung nodules
Tobacco abuse
Hypertension
Heart failure with reduced ejection fraction-ejection fraction 35 to 40%.
Left heart catheterization 04/2024: Nonobstructive coronary artery disease.
BPH
COPD
Chronic hypoxemic respiratory failure.
Assessment and plan:
Reviewed abnormal chest x-ray: With left lower lobe possible consolidation, atelectasis and possibly left pleural effusion.
Patient is at high risk for carcinoma
Current clinical presentation more consistent with acute on chronic heart failure.
Patient is cachectic, reports some weight loss last year. He is unkept. He has poor dentition.
Ongoing smoking with bronchitic symptoms. He states that his phlegm has not changed.
-
Will obtain a CT of the chest to evaluate lung parenchyma further. Rule out central mass.(Patient was due for lung cancer screening January 2025)-reviewed CT scan from January 2024 and there is no evidence for suspicious lung nodules.
As patient is being diuresed and has history of systolic heart failure, he is at risk for contrast-induced nephropathy. Will try to avoid contrast.
-
COPD: Not in exacerbation
[facility] records reviewed
Okay to continue nebulizers budesonide/DuoNebs while in the hospital.
No indication for systemic corticosteroids at this point.
Patient does have bronchitic symptoms and nebulizer may aid with secretion clearance
Given severity of disease not unreasonable to give a course of doxycycline for 5 to 7 days depending on CAT scan results.
Can restart inhalers after discharge
It is noted that in the outpatient setting he was tried on Trelegy/Breztri--> it seems that there was some cost issues and also patient not liking powdered form medications.
Currently only taking fluticasone/salmeterol unable to afford anything else.
My not be a bad idea to discharge on nebulized therapy with budesonide/DuoNebs [id number].
-
Chronic bronchitic symptoms
Will add Acapella device
May benefit from percussion therapy
-
Patient does have metabolic alkalosis chronically.
I would not be surprised if he is hypercapnic.
No need to address during this visit as his mental status is stable.
-
Continue diuresis per primary And cardiology.
Monitor renal function and electrolytes
-
Smoking cessation encouraged.
-
Will follow
-
Follow-up with Dr. Peralta after discharge
Last time seen was January 2025
Missed appointment 03/09/2025
Had an appointment 04/02/2025 but in the hospital
Short-term follow-up after discharge
--- NOTE | 2025-04-02 15:15 | PTCARENOTE ---
Assumed care of patient at beginning of this shift from previous RN with O2 4L in use; POx 96%. Early afternoon patient c/o difficulty coughing up mucous and difficulty breathing out of his nose. POx dropped to 86-88%. Increased O2 to 8L and POx
92%. Patient incontinent of BM. Patient able to cough up thick white sputum but still c/o not being able to breathe from his nose and unable to blow his nose. Dr Nava in to see patient; ordered mucinex and nasal spray. Able to wean to 5L O2 with
POx currently 98%.
[2025-04-02] MEDS: LOVENOX 40 MG SC (17:17)
[2025-04-02] MEDS: FLOMAX 0.4 MG PO (21:14)
[2025-04-03] VITALS (18 sets, daily range): BP systolic 82–159; BP diastolic 48–84; PULSE 67–69; O2SAT 91; BMI 18.2
--- NOTE | 2025-04-03 05:00 | PTCARENOTE ---
Pt appearing to get sleep over night. Pt respirations even unlabored. Spo2 94-96% on 4-5L nc. Pt wound care done, see documentation. Pt weight down 8/9 lbs. Call mcconnell within reach bed in lowest position. Assessment care and vitals as charted.
[2025-04-03 05:09] LABS: Blood Urea Nitrogen 28 mg/dl (9-20); Calcium 7.7 mg/dl (8.4-10.2); Chloride 88 mmol/L (98-107); Estimated Creatinine Clearance 74 ml/min; Glucose 90 mg/dl (70-99); Potassium 3.9 mmol/L (3.5-5.1); Sodium 134 mmol/L (135-145); eGFR > 60.00
[2025-04-03 05:11] LABS: Hematocrit 43.5 % (39.0-52.0); Hemoglobin 13.9 g/dL (13.0-18.0); Mean Corp Hgb Conc. 32.0 g/dL (33.0-37.0); Mean Corpuscular Volume 93.3 fL (80.0-94.0); Nucleated Red Blood Cells % 0 % (-); Platelet Count 106 10^3/uL (130-400); Red Cell Dist. Width 15.2 % (11.5-14.5)
[2025-04-03 05:29] LABS: Carbon Dioxide 44 mmol/L (22-30)
[2025-04-03] MEDS: PULMICORT 0.5 MG INH ×2 (07:47→20:47)
[2025-04-03] MEDS: DUONEB 3 ML INH ×4 (07:48→17:43)
[2025-04-03] MEDS: ALDACTONE 12.5 MG PO (08:40)
[2025-04-03] MEDS: MUCINEX 1200 MG PO ×2 (08:40→19:59)
[2025-04-03] MEDS: LOW STRENGTH ASPIRIN 81 MG PO (08:41)
[2025-04-03] MEDS: VIBRAMYCIN 100 MG PO ×2 (08:41→20:00)
[2025-04-03] MEDS: COREG 3.125 MG PO ×2 (08:41→20:00)
[2025-04-03] MEDS: LASIX 40 MG IV ×2 (08:41→16:17)
[2025-04-03] MEDS: OCEAN, SALINE MIST 2 SPRAYS NASAL ×2 (08:42→13:14)
--- NOTE | 2025-04-03 09:08 | W.PN.CARDCBS ---
Today's Communication / Plan
-
Continue IV diuresis
Impression / Plan
-
.
Primary [employer] Supervisor: Dr. Christiansen
Impression:
Presentation with SOB, cough
Acute on chronic heart failure with reduced EF
Nonischemic cardiomyopathy, EF 35 to 40% by echo 04/2024
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
Elevated troponin, peak 0.056
severe pulmonary hypertension
COPD, on chronic home O2
Severe pulmonary hypertension
HTN
Thrombocytopenia
Ongoing tobacco use
FH of CAD
Poor living conditions per medics, lives alone
ECHO 04/2024: EF 35 to 40%, mild concentric LVH, global hypokinesis, decent apical septum with paradoxical septal motion, trace MR, normal TOLU, aortic sclerosis, severely dilated RV and RA with RV hypokinesis and PAP 99 mmHg, is very severe
pulmonary hypertension, atrial septal aneurysm without shunt
Echo Apr 02 2025:
1. Left ventricular systolic function is mild to moderately reduced; LVEF 40-45% by visual estimate.
2. Severely dilated right ventricle with decreased systolic function.
3. Moderate tricuspid regurgitation. Estimated pulmonary artery pressure of 93 mmHg assuming a right atrial pressure of 15 mmHg.
4. Left pleural effusion seen.
5. Compared to prior echo dated 05/22/2024, there is little significant change.
Plan:
Continues to improve with significant IV diuresis.
I's and O's are negative over 3300 ccc over the last 24 hours
His weight continues to come down
A standing diuretic dose at discharge is likely going to be recommended
Echo reviewed with patient. EF is slightly improved from last echo at 40 to 45%.
RV is dilated with reduced function and there is severe pulmonary hypertension.
Continue medical therapy of non-NH troponin peak 0.056.
Continue outpatient regimen of GDMT including Coreg, lisinopril, spironolactone. SGLT2 inhibitors have been too costly in past
Last cath from 01/2024 with nonobstructive CAD
Agree with pulmonary evaluation.
Wean O2 as able, currently on 3 L. Continue pulmonary toilet and antibiotics as per pulmonary
Smoking cessation has been discussed and compliance with follow-up
Case management consult as medics noted patient in very poor living conditions
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
04/2024, pulmonary hypertension, hypertension, hyperlipidemia who presented to [facility] emergency room last evening due to complaints of cough and shortness of breath. He reports the symptoms have been progressively worsening over the
last several weeks. Also reports associated lower extremity edema as well as swelling of his eyelids and under eyes. When medics arrived to his home to bring him in, they noted very poor conditions to his home, and apparently patient had contents
of the stool on his extremities in ER. He lives independently. proBNP 11,000. Cardiology consulted for evaluation of heart failure.
Progress Note - [employer] Supervisor
Subjective
Date of Service: April 03, 2025
Patient seen and examined. No chest pain breathing better
Objective
Labs:
04/03/25 04:07
04/03/25 04:07
Labs
Hgb 13.9 g/dL (13.0-18.0) 04/03/25 04:07
Hct 43.5 % (39.0-52.0) 04/03/25 04:07
Plt Count 106 10^3/uL (130-400) L 04/03/25 04:07
Sodium 134 mmol/L (135-145) L 04/03/25 04:07
Potassium 3.9 mmol/L (3.5-5.1) 04/03/25 04:07
BUN 28 mg/dl (9-20) H 04/03/25 04:07
Creatinine 0.8 mg/dL (0.7-1.3) 04/03/25 04:07
Glucose 90 mg/dl (70-99) 04/03/25 04:07
Troponins
03/31/25 04/01/25 04/01/25
20:33 01:27 07:43
Troponin I 0.043 H* 0.054 H* D 0.056 H*
04/01/25
14:37
Troponin I 0.045 H*
Vital Signs and I&O:
Vital Signs
Temp Pulse Resp BP Pulse Ox
97.3 F 62 20 159/72 100
04/03/25 07:00 04/03/25 08:00 04/03/25 08:00 04/03/25 08:40 04/03/25 08:00
Vital Signs
Temp Pulse Resp BP Pulse Ox
97.3 F 62 20 159/72 100
04/03/25 07:00 04/03/25 08:00 04/03/25 08:00 04/03/25 08:40 04/03/25 08:00
Intake & Output
04/01/25 04/02/25 04/03/25 04/04/25
06:59 06:59 06:59 06:59
Intake Total 1440 / 1440 600 / 600
Output Total 1650 / 1650 3960 / 3960 3200 / 3200 750 / 750
Balance -1650 / -1650 -2520 / -2520 -2600 / -2600 -750 / -750
Physical Exam
Physical Exam
General: No acute distress, AAOX3
Neck: Negative JVD
Heart: Regular, Negative S3 positive S1/S2, Negative S4, No murmur
Lungs: CTA b/l, negative wheezes/rales/rhonchi
Abd: Positive BS, NT/ND, neg rebound/rigidity/guarding
Ext: Negative cyanosis/clubbing. Mild bilateral lower extremity edema
Neuro: nonfocal
--- NOTE | 2025-04-03 09:32 | W.PN.PUL.V3 ---
Today's Communication / Plan
-
Continue diuresis--8 L / 3.5 days with significant reduction in FiO2 requirements
Monitor pleural effusion and thoracentesis if does not resolve with diuresis
Antibiotics
Follow-up radiographically
Increase activity
Wean oxygen-currently on 3 L
Assessment
-
79-year-old man smoker with history of heart failure with reduced ejection fraction ejection fraction approximately 40%, COPD, ongoing smoking reports progressive fatigue and weakness. Unable to get of his couch for the last 2 days. He does report
chronic progressive shortness of breath over several months to years.
We were consulted on 04/02/2027 for an abnormal chest imaging.
Abnormal chest x-ray: Large left lower lobe airspace consolidation. Small left pleural effusion. Moderate cardiomegaly. Increased interstitial markings suggestive of pulmonary edema.
Acute respiratory insufficiency
Acute on chronic heart failure with reduced ejection fraction.
proBNP 11,000
Chest x-ray with pulmonary vascular congestion
Echocardiogram 04/02/2025: Ejection fraction 40 to 45%. Severely dilated right ventricular size. Moderate TR. Left pleural effusion seen. No significant change compared to April 2024
COPD-not in acute exacerbation.
PFT 04/10/2024: Severe gas exchange abnormality. FEV1 postbronchodilator 1.08 L - 33%.
Chronic hypoxemic respiratory failure follows up with Dr. Peralta last 6-minute walk testing 01/26/2025 patient required 4 L supplemental oxygen with ambulation.
Usually on nocturnal oxygen
On BREO
tried on Trelegy and BREztri.
CT chest 02/01/2024: Reviewed.
No pulmonary embolism. Mild emphysema. Biapical scarring. Mild bilateral pleural effusion. Cardiomegaly. No lung nodules
Tobacco abuse
Hypertension
Heart failure with reduced ejection fraction-ejection fraction 35 to 40%.
Left heart catheterization 04/2024: Nonobstructive coronary artery disease.
BPH
COPD
Chronic hypoxemic respiratory failure.
Plan:
Respiratory status continues to improve with diuresis
Supplemental oxygen as needed-now on 3 L - 97% saturation
Nebulizers-DuoNebs and budesonide
Aspiration precautions
Incentive spirometry
Mucus clearing devices
It is noted that in the outpatient setting he was tried on Trelegy/Breztri--> it seems that there was some cost issues and also patient not liking powdered form medications.
Currently only taking fluticasone/salmeterol unable to afford anything else
CT chest 04/03/2025-moderate left lower lobe consolidation probably pneumonia, moderate left and small right pleural effusion, new on the right and progressed on the left
If pleural effusions do not resolve with diuresis then consider thoracentesis especially on the left side
Check cultures
Empiric finite course of antibiotics
Follow leukocytosis
Follow radiographically
Diuresis as tolerated--8 L / 3.5 days
Monitor renal function, electrolytes, intake/output, lower extremity edema and weight
Replace electrolytes as needed
Smoking cessation counseling ongoing
DVT prophylaxis-on Lovenox
Nutrition
Early mobilization/PT/OT
May not be a bad idea to discharge on nebulized therapy with budesonide/DuoNebs [id number].
Reviewed with nursing
Outpatient follow-up with Dr. Peralta after discharge
Last time seen was January 2025
Missed appointment 03/09/2025
Had an appointment 04/02/2025 but in the hospital
Short-term follow-up after discharge
Subjective Data
-
Date of Service:
Date of Service: April 03, 2025
Chief Complaint: Pulmonary Follow Up and Dyspnea Follow Up
Subjective:
Less short of breath, diuresing, no chest pain, minimal productive cough, no abdominal pain
Review of Systems
General: Other
Objective Data
Data Reviewed
Vital Signs / I&O:
Vital Signs
Temp Pulse Resp BP Pulse Ox
97.3 F 62 20 159/72 100
04/03/25 07:00 04/03/25 08:00 04/03/25 08:00 04/03/25 08:40 04/03/25 08:00
Intake and Output
04/02/25 04/03/25 04/04/25
06:59 06:59 06:59
Intake Total 1440 / 1440 600 / 600
Output Total 3960 / 3960 3200 / 3200 750 / 750
Balance -2520 / -2520 -2600 / -2600 -750 / -750
SaO2: 100
Nasal Cannula flow liters per minute: 3
Physical Exam
General: Respiratory Distress (n) and Comfortable
HEENT: Normocephalic, Anicteric and Moist Mucous Membranes
Cardiovascular: Regular Rhythm
Respiratory: Wheeze (n), Crackles (Basilar crackles), Rhonchi (n), Non-Labored Respirations, Accessory Resp Muscle Use (n) and Stridor (n)
GI: Soft, Non Distended and Non Tender
Neurology: Awake, Alert and No Motor Deficits
Skin: Warm, Good Color, Cyanosis (n), Jaundice (n) and Rash (n)
Labs/Micro/Reports
Lab Data
04/03/25 04:07
04/03/25 04:07
Microbiology
03/31/25 22:17 Nasal Swab Influenza Types A & B (LEV) - Final
Negative for Influenza A & B, NAAT
Negative results must be combined with clinical observations
and patient history.
Nucleic Acid Amplification test (NAAT)performed on the
[employer] platform.
--- NOTE | 2025-04-03 09:43 | PTCARENOTE ---
Assumed care of patient at beginning of this shift from previous RN with O2 3l in use; POx 97-98%. PT/OT to work with patient today. Lasix give as ordered; patient diuresing, see output totals. Dr Wagner in to see patient. See worklist for full
assessment and vital signs.
--- NOTE | 2025-04-03 14:22 | W.PN.HOSP.TC ---
Today's Communication/Plan
-
Monitor vital signs and see plan
Continue with IV diuresis
Monitor pleural effusion
DuoNebs
Patient is now considering SNF, will let us know
Assessment / Plan
Assessment / Plan
General: No acute distress
HEENT: Anicteric, pink conjunctiva
Respiratory: Other (Scattered rales throughout all lung lopez. dull BS.)
Cardiac: S1/S2, Regular Rhythm and Murmur (II/ NATALI)
GI: Soft, Non Tender, Non Distended, Normal Bowel Sounds
Musculoskeletal: Other (2-3+ pitting edema bilateral LEs to the scrotum.)
Neuro: AO x 3
Acute on Chronic HFrEF
Acute on Chronic Hypoxemic Respiratory Failure secondary to the above
Hypertensive Emergency secondary to the above
On 4 L nasal cannula chronically at home
- Patient with marked peripheral edema, elevated BNP, hypertension and hypoxemia. CXR / exam consistent with pulmonary edema.
- IV Lasix BID. Follow I/Os, daily weights, etc. echo pending
Was on BiPAP on admission, now weaned down to nasal cannula
- Update Echo (last in 04/2024 with LVEF = 35-40% and severe pulmonary hypertension).
Cardiology following
- Follow for clinical improvement with diuresis.
Chest x-ray with large left lower lobe airspace consolidation. Likely secondary to atelectasis from endobronchial obstruction. Consult pulmonary. Acapella. Mucinex. Pro-Isacc negative so doubt bacterial PNA
doxy to help for COPD
Abnormal Troponin -likely nonischemic myocardial injury
- Suspect non-ischemic myocardial injury due to CHF / hypoxemia.
- EKG with non-specific ST-T changes. Initial troponin = 0.043.
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
- Cardiology evaluation as noted above.
- Continue CV med regimen including ASA, statin, etc.
COPD
likely some component also contributing to his current dyspnea.
- Nebs ATC and PRN. Budesonide nebs.
- Continue O2 support.
- Follow for clinical changes.
- Patient continues to be an active smoker. Continue with nicotine patch
CXR noted above; pulmonary following. CT chest pending
acapella, IS. mucinex
doxy for COPD
Left upper extremity swelling
Ultrasound negative for DVT
Monitor
History of hypertension
Continue lisinopril, Coreg
Hyperlipidemia
Tobacco use with abuse
Cessation advised
Continue with nicotine patch
BPH
- Continue tamsulosin. Bladder scan protocol.
DVT Prophylaxis: Lovenox
Code Status: Full
PT
I spent a total of 52 minutes with the patient or on the floor. More than 50% of this time involved counseling and coordination of care.
Anticipated Discharge: > 48 hours
Subjective/Interval History
-
Date of Service: April 03, 2025
no pain
Objective Data
-
Labs:
Laboratory Results
04/03/25
04:07
WBC 6.4
Hgb 13.9
Hct 43.5
Plt Count 106 L
Sodium 134 L
Potassium 3.9
Chloride 88 L
Carbon Dioxide 44 H
BUN 28 H
Creatinine 0.8
Glucose 90
Calcium 7.7 L
Vital Signs:
Vital Signs
Temp Pulse Resp BP Pulse Ox
97.3 F 57 16 135/71 98
04/03/25 07:00 04/03/25 12:01 04/03/25 12:01 04/03/25 12:00 04/03/25 12:01
I&O
04/02/25 04/03/25 04/04/25
06:59 06:59 06:59
Intake Total 1440 / 1440 600 / 600
Output Total 3960 / 3960 3200 / 3200 1400 / 1400
Balance -2520 / -2520 -2600 / -2600 -1400 / -1400
[2025-04-03] MEDS: LOVENOX 40 MG SC (17:34)
--- NOTE | 2025-04-03 17:50 | W.PN.UPDATE ---
Update Note
Progress Note Update
Called to bedside for hypoxia - dropped to 77% on 4L, placed on NRB, now satting 100%.RN notes thick secretions, states pt appears to be unchanged in terms of symptoms and breathing.
Other VSS. Pt tripoding, working to breathe. Poor air mvmt, exp wheezes. Clubbing.
Reviewed CT chest from today, large consolidation c/w PNA.
Stat ABG, stat portable CXR
Empiric ceftriaxone, cont doxy
one time IV steroids defer further dosing to AM team
Just recieved his evening lasix, monitor i/o for effect
35min in cc at bedside
--- NOTE | 2025-04-03 17:58 | PTCARENOTE ---
Addendum entered by Yas Ni RN 04/03/25 18:28:
POx dropped again to 86-88% on 6L; did not improve when oxygen increased to 8L. NRB placed back on patient again and TT sent to Dr Dumont. HFNC ordered by her; RT made aware via TT and coming over to place. Instructed by Dr Dumont to have RT contact
pulmonary if patient should need bipap.
Addendum entered by Yas Ni RN 04/03/25 18:06:
POx 93% on 6L midflow.
Original Note:
Patient with desat 77-81% on 4L; did not improve despite increase in O2. NRB placed on patient; POx 98-100%. Patient stated he did feel more SOB but 'eating dinner was more important.' Tray moved to the side and explained to patient respiratory is
more important at this time. He continues with deep moist cough with thick sputum but not bringing up a lot. Lungs diminished and very coarse. Dr Nava made aware via TT but no longer in hospital. TT sent to Dr Dumont who is doing cross coverage; up
to see patient. RT contacted for prn treatment and ABGs that were ordered by Dr Dumont. PCXR currently being done. IVAB and IV steroids ordered.
[2025-04-03] MEDS: SOLU-MEDROL PF 60 MG IV (18:06)
[2025-04-03] MEDS: ROCEPHIN 1000 MG IV (18:07)
[2025-04-03] MEDS: STERILE WATER FOR INJECTION 10 ML IV (18:07)
[2025-04-03 18:10] LABS: B.E. 18.2 mmol/L; O2 Saturation % 97.8 % (94-98); PCO2 65 mmHg (35-48); PO2 84 mmHg (83-108)
[2025-04-03 18:11] LABS: HCO3 46.2 mmol/L (21-28)
[2025-04-03] MEDS: FLOMAX 0.4 MG PO (19:59)
[2025-04-03] MEDS: HYDROPHOR 1 APPLIC TOPICAL (21:20)
[2025-04-04] VITALS (12 sets, daily range): BP systolic 115–155; BP diastolic 42–99; BMI 17.0
[2025-04-04 05:48] LABS: Hematocrit 43.6 % (39.0-52.0); Hemoglobin 13.8 g/dL (13.0-18.0); Mean Corp Hgb Conc. 31.7 g/dL (33.0-37.0); Mean Corpuscular Volume 95.0 fL (80.0-94.0); Nucleated Red Blood Cells % 0 % (-); Platelet Count 98 10^3/uL (130-400); Red Cell Dist. Width 14.8 % (11.5-14.5)
[2025-04-04 05:53] LABS: Blood Urea Nitrogen 27 mg/dl (9-20); Calcium 7.9 mg/dl (8.4-10.2); Chloride 90 mmol/L (98-107); Estimated Creatinine Clearance 79 ml/min; Glucose 146 mg/dl (70-99); Potassium 4.6 mmol/L (3.5-5.1); Sodium 133 mmol/L (135-145); eGFR > 60.00
[2025-04-04 06:01] LABS: Carbon Dioxide 39 mmol/L (22-30)
[2025-04-04] MEDS: DUONEB 3 ML INH ×4 (07:39→20:10)
[2025-04-04] MEDS: PULMICORT 0.5 MG INH ×2 (07:39→20:10)
--- NOTE | 2025-04-04 08:20 | W.PN.CARDCBS ---
Today's Communication / Plan
-
Continues to improve with significant IV diuresis.
I's and O's are negative over 7L last 48 hrs
His weight continues to come down
A standing diuretic dose at discharge is going to be recommended
Echo reviewed with patient. EF is slightly improved from last echo at 40 to 45%.
RV is dilated with reduced function and there is severe pulmonary hypertension.
Continue medical therapy of non-ME troponin peak 0.056.
Continue outpatient regimen of GDMT including Coreg, lisinopril, spironolactone. SGLT2 inhibitors have been too costly in past
Last cath from 01/2024 with nonobstructive CAD
Cont with pulmonary evaluation.
Wean O2 as able, as was on [place]if[place]. Continue pulmonary toilet and antibiotics as per pulmonary
Impression / Plan
-
.
Primary Chemical Checker: Dr. Christiansen
Impression:
Presentation with SOB, cough
Acute on chronic heart failure with reduced EF
Nonischemic cardiomyopathy, EF 35 to 40% by echo 04/2024
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
Elevated troponin, peak 0.056
severe pulmonary hypertension
COPD, on chronic home O2
Severe pulmonary hypertension
HTN
Thrombocytopenia
Ongoing tobacco use
FH of CAD
Poor living conditions per medics, lives alone
ECHO 04/2024: EF 35 to 40%, mild concentric LVH, global hypokinesis, decent apical septum with paradoxical septal motion, trace MR, normal TOLU, aortic sclerosis, severely dilated RV and RA with RV hypokinesis and PAP 99 mmHg, is very severe
pulmonary hypertension, atrial septal aneurysm without shunt
Echo Apr 02 2025:
1. Left ventricular systolic function is mild to moderately reduced; LVEF 40-45% by visual estimate.
2. Severely dilated right ventricle with decreased systolic function.
3. Moderate tricuspid regurgitation. Estimated pulmonary artery pressure of 93 mmHg assuming a right atrial pressure of 15 mmHg.
4. Left pleural effusion seen.
5. Compared to prior echo dated 05/22/2024, there is little significant change.
Plan:
Continues to improve with significant IV diuresis.
I's and O's are negative over 7L last 48 hrs
His weight continues to come down
A standing diuretic dose at discharge is going to be recommended
Echo reviewed with patient. EF is slightly improved from last echo at 40 to 45%.
RV is dilated with reduced function and there is severe pulmonary hypertension.
Continue medical therapy of non-ME troponin peak 0.056.
Continue outpatient regimen of GDMT including Coreg, lisinopril, spironolactone. SGLT2 inhibitors have been too costly in past
Last cath from 01/2024 with nonobstructive CAD
Cont with pulmonary evaluation.
Wean O2 as able, as was on Hiflow. Continue pulmonary toilet and antibiotics as per pulmonary
Smoking cessation has been discussed and compliance with follow-up
Case management consult as medics noted patient in very poor living conditions
Discussed with pulmonary.
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
04/2024, pulmonary hypertension, hypertension, hyperlipidemia who presented to [facility] emergency room last evening due to complaints of cough and shortness of breath. He reports the symptoms have been progressively worsening over the
last several weeks. Also reports associated lower extremity edema as well as swelling of his eyelids and under eyes. When medics arrived to his home to bring him in, they noted very poor conditions to his home, and apparently patient had contents
of the stool on his extremities in ER. He lives independently. proBNP 11,000. Cardiology consulted for evaluation of heart failure.
Progress Note - Chemical Checker
Subjective
Date of Service: April 04, 2025
Pt seen and examined. No complaints. No chest pain or shortness of breath.
Objective
Labs:
04/04/25 04:44
04/04/25 04:44
Labs
Hgb 13.8 g/dL (13.0-18.0) 04/04/25 04:44
Hct 43.6 % (39.0-52.0) 04/04/25 04:44
Plt Count 98 10^3/uL (130-400) L 04/04/25 04:44
Sodium 133 mmol/L (135-145) L 04/04/25 04:44
Potassium 4.6 mmol/L (3.5-5.1) 04/04/25 04:44
BUN 27 mg/dl (9-20) H 04/04/25 04:44
Creatinine 0.7 mg/dL (0.7-1.3) 04/04/25 04:44
Glucose 146 mg/dl (70-99) H 04/04/25 04:44
Troponins
04/01/25 04/01/25
07:43 14:37
Troponin I 0.056 H* 0.045 H*
Vital Signs and I&O:
Vital Signs
Temp Pulse Resp BP Pulse Ox
97.9 F 73 19 155/72 100
04/04/25 07:00 04/04/25 07:41 04/04/25 07:41 04/04/25 06:00 04/04/25 08:05
Vital Signs
Temp Pulse Resp BP Pulse Ox
97.9 F 73 19 155/72 100
04/04/25 07:00 04/04/25 07:41 04/04/25 07:41 04/04/25 06:00 04/04/25 08:05
Intake & Output
04/02/25 04/03/25 04/04/25 04/05/25
06:59 06:59 06:59 06:59
Intake Total 1440 / 1440 600 / 600 240 / 240
Output Total 3960 / 3960 3200 / 3200 4350 / 4350
Balance -2520 / -2520 -2600 / -2600 -4110 / -4110
Physical Exam
Physical Exam
General: No acute distress, AAOX3
Neck: Negative JVD
Heart: Regular, Negative S3 positive S1/S2, Negative S4, No murmur
Lungs: CTA b/l, negative wheezes/rales/rhonchi
Abd: Positive BS, NT/ND, neg rebound/rigidity/guarding
Ext: Negative cyanosis/clubbing. Mild bilateral lower extremity edema
Neuro: nonfocal
[2025-04-04] MEDS: LOW STRENGTH ASPIRIN 81 MG PO (09:15)
[2025-04-04] MEDS: MUCINEX 1200 MG PO ×2 (09:15→19:57)
[2025-04-04] MEDS: ALDACTONE 12.5 MG PO (09:15)
[2025-04-04] MEDS: COREG 3.125 MG PO ×2 (09:15→19:57)
[2025-04-04] MEDS: VIBRAMYCIN 100 MG PO ×2 (09:15→19:57)
[2025-04-04] MEDS: HYDROPHOR 1 APPLIC TOPICAL ×2 (09:16→19:58)
[2025-04-04] MEDS: LASIX 40 MG IV ×2 (09:16→17:04)
[2025-04-04] MEDS: DECADRON 4 MG IV ×2 (09:55→21:56)
--- NOTE | 2025-04-04 11:11 | W.PN.PUL.V3 ---
Today's Communication / Plan
-
Wean oxygen
Continue nebulizers
Antibiotics
Diuresis
Decadron-begin to wean
Assessment
-
79-year-old man smoker with history of heart failure with reduced ejection fraction ejection fraction approximately 40%, COPD, ongoing smoking reports progressive fatigue and weakness. Unable to get of his couch for the last 2 days. He does report
chronic progressive shortness of breath over several months to years.
We were consulted on 04/02/2027 for an abnormal chest imaging.
Abnormal chest x-ray: Large left lower lobe airspace consolidation. Small left pleural effusion. Moderate cardiomegaly. Increased interstitial markings suggestive of pulmonary edema.
Acute respiratory insufficiency
Acute on chronic heart failure with reduced ejection fraction.
proBNP 11,000
Chest x-ray with pulmonary vascular congestion
Echocardiogram 04/02/2025: Ejection fraction 40 to 45%. Severely dilated right ventricular size. Moderate TR. Left pleural effusion seen. No significant change compared to April 2024
COPD-not in acute exacerbation.
PFT 04/10/2024: Severe gas exchange abnormality. FEV1 postbronchodilator 1.08 L - 33%.
Chronic hypoxemic respiratory failure follows up with Dr. Peralta last 6-minute walk testing 01/26/2025 patient required 4 L supplemental oxygen with ambulation.
Usually on nocturnal oxygen
On BREO
tried on Trelegy and BREztri.
CT chest 02/01/2024: Reviewed.
No pulmonary embolism. Mild emphysema. Biapical scarring. Mild bilateral pleural effusion. Cardiomegaly. No lung nodules
Tobacco abuse
Hypertension
Heart failure with reduced ejection fraction-ejection fraction 35 to 40%.
Left heart catheterization 04/2024: Nonobstructive coronary artery disease.
BPH
COPD
Chronic hypoxemic respiratory failure.
Plan:
Respiratory status declined with increased FiO2 requirements despite aggressive diuresis noted with pneumonia on CT 04/03/2025
Supplemental oxygen as needed-now on 3 L - 97% saturation
Nebulizers-DuoNebs and budesonide
Aspiration precautions
Incentive spirometry
Mucus clearing devices
Decadron-begin to wean
It is noted that in the outpatient setting he was tried on Trelegy/Breztri--> it seems that there was some cost issues and also patient not liking powdered form medications.
Currently only taking fluticasone/salmeterol unable to afford anything else
CT chest 04/03/2025-moderate left lower lobe consolidation probably pneumonia, moderate left and small right pleural effusion, new on the right and progressed on the left
If pleural effusions do not resolve with diuresis then consider thoracentesis especially on the left side
Chest x-ray 04/03/2025-moderate left lower lobe pneumonia mildly improved,
Chest x-ray 04/05/2025-if pleural effusion without change consider diagnostic/therapeutic thoracentesis
Check cultures
Empiric finite course of antibiotics
Follow leukocytosis
Follow radiographically
Diuresis as tolerated--14 L /4.5 days
Monitor renal function, electrolytes, intake/output, lower extremity edema and weight
Replace electrolytes as needed
Cardiology following-correspondence reviewed-Dr. Wagner reviewed with Dr. Kern 04/04/2025
Smoking cessation counseling ongoing
DVT prophylaxis-on Lovenox
Nutrition
Early mobilization/PT/OT
May not be a bad idea to discharge on nebulized therapy with budesonide/DuoNebs
Reviewed with nursing as well as cardiology
Outpatient follow-up with Dr. Peralta after discharge
Last time seen was January 2025
Missed appointment 03/09/2025
Had an appointment 04/02/2025 but in the hospital
Short-term follow-up after discharge
Subjective Data
-
Date of Service:
Date of Service: April 04, 2025
Chief Complaint: Pulmonary Follow Up and Dyspnea Follow Up
Subjective:
Feels better, continues to diurese, still on high flow oxygen, no chest pain, chest congestion, productive cough or abdominal pain
Review of Systems
General: Other (Per HPI)
Objective Data
Data Reviewed
Vital Signs / I&O:
Vital Signs
Temp Pulse Resp BP Pulse Ox
97.9 F 73 16 115/78 98
04/04/25 07:00 04/04/25 10:00 04/04/25 10:00 04/04/25 10:00 04/04/25 10:00
Intake and Output
04/03/25 04/04/25 04/05/25
06:59 06:59 06:59
Intake Total 600 / 600 240 / 240
Output Total 3200 / 3200 4350 / 4350
Balance -2600 / -2600 -4110 / -4110
SaO2: 98
Nasal Cannula flow liters per minute: 40
Physical Exam
General: Respiratory Distress (n) and Comfortable
HEENT: Normocephalic, Anicteric and Moist Mucous Membranes
Cardiovascular: Regular Rhythm
Respiratory: Wheeze (n), Crackles (Basilar crackles), Rhonchi (n), Non-Labored Respirations, Accessory Resp Muscle Use (n) and Stridor (n)
GI: Soft, Non Distended and Non Tender
Neurology: Awake, Alert and No Motor Deficits
Skin: Warm, Good Color, Cyanosis (n), Jaundice (n) and Rash (n)
Labs/Micro/Reports
Lab Data
04/04/25 04:44
04/04/25 04:44
Laboratory Results
04/03/25
18:06
pH 7.46 H
pCO2 65 H
pO2 84
HCO3 46.2 H*
O2 Delivery Level Not Reportable
--- NOTE | 2025-04-04 11:24 | PTCARENOTE ---
Patient AAOx3. Weaning back to midflow, so far patient tolerating, sats 97% in no distress. VSS. Patient making needs known. Will closely monitor.
--- NOTE | 2025-04-04 14:11 | W.PN.HOSP.TC ---
Today's Communication/Plan
-
Monitor vital signs see plan
Wean oxygen as tolerated
Chest x-ray tomorrow, if significant pleural effusion then get thoracentesis
Continue with ceftriaxone and doxycycline
Continue with IV diuresis
Decadron
Assessment / Plan
Assessment / Plan
General: No acute distress
HEENT: Anicteric, pink conjunctiva
Respiratory: Other (Scattered rales throughout all lung lopez. dull BS.)
Cardiac: S1/S2, Regular Rhythm and Murmur (II/ NATALI)
GI: Soft, Non Tender, Non Distended, Normal Bowel Sounds
Musculoskeletal: Other (2+ pitting edema bilateral LEs.)
Neuro: AO x 3
Acute on Chronic HFrEF
Acute on Chronic Hypoxemic Respiratory Failure secondary to the above
Hypertensive Emergency secondary to the above
On 4 L nasal cannula chronically at home
- Patient with marked peripheral edema, elevated BNP, hypertension and hypoxemia. CXR / exam consistent with pulmonary edema.
- IV Lasix BID. Follow I/Os, daily weights
Was on BiPAP on admission, then was on nasal cannula, on 04/03 oxygen continues to get worse and was put on high flow. CT chest shows consolidation which suspect likely from atelectasis, however given his symptoms added ceftriaxone to doxycycline.
Pro-Isacc was checked initially and was negative
Also started on Decadron.
Repeat chest x-ray 04/05 and if still has significant pleural effusion then thoracentesis would be appropriate
- Update Echo (last in 04/2024 with LVEF = 35-40% and severe pulmonary hypertension).
Cardiology following
- Follow for clinical improvement with diuresis.
cw Acapella. Mucinex.
Abnormal Troponin -likely nonischemic myocardial injury
- Suspect non-ischemic myocardial injury due to CHF / hypoxemia.
- EKG with non-specific ST-T changes. Initial troponin = 0.043.
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
- Cardiology evaluation as noted above.
- Continue CV med regimen including ASA, statin, etc.
COPD
Suspect component of exacerbation
- Nebs ATC and PRN. Budesonide nebs.
Started Decadron
Was on high flow this morning, wean to mid flow if tolerated
- Follow for clinical changes.
- Patient continues to be an active smoker. Continue with nicotine patch
CXR noted above; pulmonary following.
acapella, IS. mucinex
Left upper extremity swelling
Ultrasound negative for DVT
Monitor
History of hypertension
Continue lisinopril, Coreg
Hyperlipidemia
Tobacco use with abuse
Cessation advised
Continue with nicotine patch
BPH
- Continue tamsulosin. Bladder scan protocol.
DVT Prophylaxis: Lovenox
Code Status: Full
PT rec SNF; patient is still debating
I spent a total of 52 minutes with the patient or on the floor. More than 50% of this time involved counseling and coordination of care.
Anticipated Discharge: > 48 hours
Subjective/Interval History
-
Date of Service: April 04, 2025
Shortness of breath yesterday
Objective Data
-
Labs:
Laboratory Results
04/04/25
04:44
WBC 2.8 L
Hgb 13.8
Hct 43.6
Plt Count 98 L
Sodium 133 L
Potassium 4.6
Chloride 90 L
Carbon Dioxide 39 H
BUN 27 H
Creatinine 0.7
Glucose 146 H
Calcium 7.9 L
Vital Signs:
Vital Signs
Temp Pulse Resp BP Pulse Ox
97.8 F 74 23 115/78 100
04/04/25 11:00 04/04/25 11:22 04/04/25 11:22 04/04/25 10:00 04/04/25 11:22
I&O
04/03/25 04/04/25 04/05/25
06:59 06:59 06:59
Intake Total 600 / 600 240 / 240
Output Total 3200 / 3200 4350 / 4350
Balance -2600 / -2600 -4110 / -4110
--- NOTE | 2025-04-04 16:39 | PTOTSP ---
Speech Therapy Evaluation
Pt at an elevated risk for aspiration given PMH COPD, CHF, ongoing smoking, and oxygen dependency (4L NC chronically at home). At bedside, pt demonstrated functional swallow function with no overt s/sx of aspiration. Pt reports increased rate of
intake but no increased coughing during meals. Educated on aspiration precautions, included slow rate, small bites, and interspersing liquids. Pt on 6L NC at 45% High flow, 98 SaO2. Low WBC.�
Recommend:
1. Regular solids and thin liquids
2. Meds as best tolerated
3. General aspiration precautions
4. F[employer]CH[employer]IC to s/o�- please reconsult if concerned for aspiration or if worsening in chest imaging/respiratory status
[2025-04-04] MEDS: ROCEPHIN 1000 MG IV (17:04)
[2025-04-04] MEDS: STERILE WATER FOR INJECTION 10 ML IV (17:04)
[2025-04-04] MEDS: LOVENOX 40 MG SC (17:04)
[2025-04-04] MEDS: FLOMAX 0.4 MG PO (20:03)
[2025-04-05] VITALS (17 sets, daily range): BP systolic 74–153; BP diastolic 52–108; BMI 17.0
--- NOTE | 2025-04-05 04:30 | PTCARENOTE ---
Pt appearing to get sleep over night. Pt respirations even unlabored. SPO2 98% on 4L. Pt had no complaints at this time. Call mcconnell with in reach Assessment care and vitals as charted.
[2025-04-05 05:44] LABS: Hematocrit 39.4 % (39.0-52.0); Hemoglobin 13.1 g/dL (13.0-18.0); Mean Corp Hgb Conc. 33.2 g/dL (33.0-37.0); Mean Corpuscular Volume 93.6 fL (80.0-94.0); Nucleated Red Blood Cells % 0 % (-); Platelet Count 102 10^3/uL (130-400); Red Cell Dist. Width 14.5 % (11.5-14.5)
[2025-04-05 06:01] LABS: Blood Urea Nitrogen 33 mg/dl (9-20); Calcium 7.9 mg/dl (8.4-10.2); Chloride 90 mmol/L (98-107); Estimated Creatinine Clearance 93 ml/min; Glucose 214 mg/dl (70-99); Potassium 4.1 mmol/L (3.5-5.1); Sodium 134 mmol/L (135-145); eGFR > 60.00
[2025-04-05 06:24] LABS: Carbon Dioxide 40 mmol/L (22-30)
[2025-04-05] MEDS: PULMICORT 0.5 MG INH ×2 (08:08→19:39)
[2025-04-05] MEDS: DUONEB 3 ML INH ×5 (08:08→19:42)
[2025-04-05] MEDS: ALDACTONE 12.5 MG PO (08:38)
[2025-04-05] MEDS: LOW STRENGTH ASPIRIN 81 MG PO (08:38)
[2025-04-05] MEDS: VIBRAMYCIN 100 MG PO (08:38)
[2025-04-05] MEDS: COREG 3.125 MG PO ×2 (08:38→20:02)
[2025-04-05] MEDS: MUCINEX 1200 MG PO ×2 (08:38→20:02)
[2025-04-05] MEDS: LASIX 40 MG IV (08:39)
[2025-04-05] MEDS: HYDROPHOR 1 APPLIC TOPICAL ×2 (08:40→21:10)
--- NOTE | 2025-04-05 09:47 | W.PN.CARDCBS ---
Addendum entered and electronically signed by Joshua Christiansen MD 04/05/25 11:43:
I saw and examined the patient.
The DEVELOPMENT VICE PRESIDENT or PA's note was reviewed and I agree with the note.
Comment: General: Well developed, well nourished in NAD.
Neck: Supple, no JVD, HJR, carotids +2 B/L, no bruits bilaterally.
Heart: Non displaced PMI, RRR, no murmurs, No S3, S4, no rubs.
Lungs: Scattered rhonchi
Abdomen: Normal bowel sounds, soft, non-tender, non-distended.
Extremities: No clubbing, cyanosis or edema bilaterally.
Neuro: Grossly nonfocal, awake, alert and oriented x3.
Volume status appears reasonable. Will change to p.o. Lasix. Will restart lisinopril. Will sign off, call with questions.
Original Note:
Today's Communication / Plan
-
Change Lasix to 40 mg PO BID starting this afternoon
Restart lisinopril 5 mg daily
Impression / Plan
-
PCP: Dr. Jones
Primary Forensic Identification Specialist: Dr. Christiansen
Impression:
Presentation with SOB, cough 03/31/25
Acute on chronic HFrEF
Nonischemic cardiomyopathy, EF 35 to 40% by echo 04/2024, slightly improved to 40 to 45% by echo 04/02/2025
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
Elevated troponin, peak 0.056
Severe pulmonary hypertension
COPD, on chronic home O2 at 4 to 6 L chronically
Severe pulmonary hypertension
HTN
Thrombocytopenia
Ongoing tobacco use
FH of CAD
Poor living conditions per medics, lives alone
ECHO 04/2024: EF 35 to 40%, mild concentric LVH, global hypokinesis, decent apical septum with paradoxical septal motion, trace MR, normal TOLU, aortic sclerosis, severely dilated RV and RA with RV hypokinesis and PAP 99 mmHg, is very severe
pulmonary hypertension, atrial septal aneurysm without shunt
Echo 04/02/2025: EF 40 to 45%, severely dilated RV with decreased RV systolic function, moderate TR with PAP 93 mmHg, left pleural effusion, overall unchanged from echo 05/22/2024
Plan:
-Patient was brought to the ER on 03/31/2025 with acute on chronic SOB and hypoxia and was admitted with acute HF, usually wears 4 L chronically and had increased to 6 L chronically with minimal improvement at home just prior to admission.
Paramedics reported to the ER staff that patient was found on the floor in his home and had been using a cup sitting near him for urination and his lower extremities had feces on them. Cardiology was consulted for acute HF we have been diuresing.
-Pulmonology notes reviewed by me, CT of the chest from 04/03/2025 suggested AN LLL PNA and patient was treated with antibiotics.
-Patient has had a significant improvement with attempts at IV diuresis. Weight is down 28 lbs using bed scale weights throughout. Patient is below any previous dry weight that we have on record.
-Patient diuresed with Lasix 40 mg IV BID this admission. Patient was not taking a loop diuretic prior to admission.
-Cre stable at 0.6 on 04/05/2025, labs reviewed by me
-Will transition to Lasix 40 mg PO BID starting 04/05/2025 PM
-EF was 40 to 45% by echo 04/02/2025, this is only a bit better than his last echo from 04/2024 when the EF was 35 to 40%.
-Outpatient dose of Coreg 3.125 mg BID has been continued
-Outpatient dose of spironolactone 12.5 mg daily has been continued
-Outpatient dose of lisinopril 5 mg daily has been on hold since admission for unclear reasons, labs and VS stable on my review from 04/05/2025 so will restart now, orders placed by me.
-Patient refused SGLT2 inhibitor in the past due to cost
-ECG x 3 from 04/05/2025 all reviewed by me and appear to be SR with RBBB and occasional PVCs
-Troponin peaked at 0.056 and was managed as a nonischemic myocardial injury troponin elevation in the setting of acute on chronic hypoxia and HF
-Last cath from 01/2024 with nonobstructive CAD
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
04/2024, pulmonary hypertension, hypertension, hyperlipidemia who presented to [facility] emergency room last evening due to complaints of cough and shortness of breath. He reports the symptoms have been progressively worsening over the
last several weeks. Also reports associated lower extremity edema as well as swelling of his eyelids and under eyes. When medics arrived to his home to bring him in, they noted very poor conditions to his home, and apparently patient had contents
of the stool on his extremities in ER. He lives independently. proBNP 11,000. Cardiology consulted for evaluation of heart failure.
Progress Note - Forensic Identification Specialist
Subjective
Date of Service: April 05, 2025
He thinks he is overall feeling better, but does not feel strong enough to get up out of bed on his own yet
Objective
Labs:
04/05/25 04:36
04/05/25 04:36
Labs
Hgb 13.1 g/dL (13.0-18.0) 04/05/25 04:36
Hct 39.4 % (39.0-52.0) 04/05/25 04:36
Plt Count 102 10^3/uL (130-400) L 04/05/25 04:36
Sodium 134 mmol/L (135-145) L 04/05/25 04:36
Potassium 4.1 mmol/L (3.5-5.1) 04/05/25 04:36
BUN 33 mg/dl (9-20) H 04/05/25 04:36
Creatinine 0.6 mg/dL (0.7-1.3) L 04/05/25 04:36
Glucose 214 mg/dl (70-99) H 04/05/25 04:36
Vital Signs and I&O:
Vital Signs
Temp Pulse Resp BP Pulse Ox
97.8 F 92 22 117/79 94
04/05/25 08:08 04/05/25 08:09 04/05/25 08:09 04/05/25 06:00 04/05/25 08:59
Vital Signs
Temp Pulse Resp BP Pulse Ox
97.8 F 92 22 117/79 94
04/05/25 08:08 04/05/25 08:09 04/05/25 08:09 04/05/25 06:00 04/05/25 08:59
Intake & Output
04/03/25 04/04/25 04/05/25 04/06/25
06:59 06:59 06:59 06:59
Intake Total 600 / 600 240 / 240 1200 / 1200
Output Total 3200 / 3200 4350 / 4350 3050 / 3050
Balance -2600 / -2600 -4110 / -4110 -1850 / -1850
Physical Exam
Physical Exam
GEN: NAD, AAO x 3
LUNGS: 4 L NC. No audible wheeze
CV: SR on telemetry. Reg with ectopy, S1/S2, 1/6 RSB murmur
ABD: ND
EXT: No edema B/L LE
[2025-04-05] MEDS: ZESTRIL 5 MG PO (10:46)
[2025-04-05] MEDS: DECADRON 4 MG IV (10:46)
--- NOTE | 2025-04-05 13:39 | W.PN.PUL3 ---
Today's Communication / Plan
-
- D/c antibiotics, discontinue IV steroids
- IR consult for left sided thoracentesis, await cultures and cytology
Assessment
-
79-year-old man smoker with history of heart failure with reduced ejection fraction ejection fraction approximately 40%, COPD, ongoing smoking reports progressive fatigue and weakness. Unable to get of his couch for the last 2 days. He does report
chronic progressive shortness of breath over several months to years.
We were consulted on 04/02/2027 for an abnormal chest imaging.
#1. Acute on chronic hypoxic respiratory failure.
- Suspect primarily related to volume overload, pleural effusion in the setting of underlying COPD and severe pulmonary hypertension.
- Continue to optimize volume status, wean oxygen as tolerated, keep SpO2 greater than 90%
#2. Acute on chronic heart failure with reduced ejection fraction. LVEF 40 to 45% (nonischemic cardiomyopathy)
- Cardiology service on case, agree with diuresis
- IV Lasix now transition to oral, twice daily dosing
- Left heart cath in 2023, no significant coronary artery disease noted
#3. Severe pulmonary hypertension.
- Estimated pulmonary artery systolic pressure of 93 noted on recent echocardiogram with moderate TR and severely dilated RV with decreased systolic function.
- Primarily group II PH due to underlying heart failure as well as possibly component of group III with underlying COPD and hypoxia
- Right heart cath in 01/2024, mean PA pressure 35, pulmonary capillary wedge pressure of 24 with PVR of 2.4.
#4. Left lower lobe opacity, compressive atelectasis due to pleural effusion
- Pneumonia versus compressive atelectasis due to pleural effusion
- IR guided thoracentesis performed 04/05, postprocedure x-ray with improving left lower lobe opacity suggestive of improving atelectasis
- Procalcitonin less than 0.05 on 04/01.
- Discontinue antibiotics
#5. Pleural effusions, L>R
- Trace on the right side and moderate on the left side noted
- S/p IR guided thoracentesis 04/05. Preliminary studies suggestive of transudate. Isolated elevated LDH ratio noted, suspect effect from use of diuresis
- Suspect this is related to underlying congestive heart failure as well as pulmonary hypertension
- Continue diuresis as tolerated
- Discontinue antibiotics
- Follow-up on pleural fluid cultures and cytology
- Needs follow-up imaging as outpatient, if persistent volume loss noted in the left lower lobe, will need bronchoscopy to evaluate for any endobronchial lesions.
#6. h/o COPD with Emphysema
- No wheezing on exam, currently does not appear to be suggestive of COPD exacerbation
- Continue nebulized DuoNeb as well as budesonide
- Discontinue IV steroids, continue diuresis as tolerated
- Resume outpatient follow-up with Dr. Peralta post discharge at [facility] pulmonary clinic. At baseline patient is oxygen dependent and has been on Breo
- Reportedly patient did not tolerate Trelegy or Breztri
Other medical diagnoses:
Tobacco abuse
Hypertension
Hyperlipidemia
BPH
Elevated troponin
DVT prophylaxis-on Lovenox
Nutrition
Early mobilization/PT/OT
May not be a bad idea to discharge on nebulized therapy with budesonide/DuoNebs
Reviewed with nursing as well as cardiology
Outpatient follow-up with Dr. Peralta after discharge
Last time seen was January 2025
Missed appointment 03/09/2025
Had an appointment 04/02/2025 but in the hospital
Short-term follow-up after discharge
Total time spent on this consultation/encounter _48___ minutes which includes review of history, physical exam, medications, laboratory data, personal review of imaging, extensive review of outpatient records, discussion with care team and
respiratory therapy.
Subjective Data
-
Date of Service:
Date of Service: April 05, 2025
Chief Complaint: Pulmonary Follow Up and Dyspnea Follow Up
Subjective:
Patient lying in bed in no acute distress.
Review of Systems
Genitourinary: Other (Denies any significant cough, minimal clear expectoration. No hemoptysis reported)
Objective Data
Data Reviewed
Vital Signs / I&O / Oxygen:
Vital Signs
Temp Pulse Resp BP Pulse Ox
98.1 F 90 20 130/67 95
04/05/25 11:21 04/05/25 11:33 04/05/25 11:33 04/05/25 10:00 04/05/25 11:33
Intake and Output
04/04/25 04/05/25 04/06/25
06:59 06:59 06:59
Intake Total 240 / 240 1200 / 1200
Output Total 4350 / 4350 3050 / 3050 900 / 900
Balance -4110 / -4110 -1850 / -1850 -900 / -900
SaO2 95
Nasal Cannula flow liters per 4
minute
Physical Exam
General: Respiratory Distress (n) and Comfortable
HEENT: Normocephalic, Anicteric and Moist Mucous Membranes
Cardiovascular: Regular Rhythm and Peripheral Edema (Trace edema)
Respiratory: Wheeze (n), Crackles (Isolated left lower lobe crackles.), Rhonchi (n), Non-Labored Respirations, Accessory Resp Muscle Use (n) and Stridor (n)
GI: Soft, Non Distended and Non Tender
Neurology: Awake, Alert and No Motor Deficits
Skin: Warm, Good Color, Cyanosis (n), Jaundice (n) and Rash (n)
Labs/Micro/Reports
Lab Data
04/05/25 04:36
04/05/25 04:36
--- NOTE | 2025-04-05 14:37 | PTCARENOTE ---
To IR via stretcher.
[2025-04-05 15:39] LABS: Body Fluid Second Tech EYM
[2025-04-05 15:45] LABS: LDH 165 U/L (120-246); Total Protein 5.5 g/dl (6.3-8.2)
--- NOTE | 2025-04-05 16:15 | CM ---
F/U: Patient was seen on 04/03 so he will need SNF. Patient still wants to 'talk to PT/OT' here when seen tomorrow. Patient still has not decided on SNF, but allowed [facility] to make referrals just in case. PLAN: Home PT vs. SNF.
[2025-04-05] MEDS: LASIX 40 MG PO (17:20)
[2025-04-05] MEDS: LOVENOX 40 MG SC (17:20)
[2025-04-05] MEDS: STERILE WATER FOR INJECTION IV (17:53)
--- NOTE | 2025-04-05 18:12 | W.PN.HOSP.TC ---
Today's Communication/Plan
-
see note
transfer telemetry
Assessment / Plan
Assessment / Plan
Acute on Chronic HFrEF
Acute on Chronic Hypoxemic Respiratory Failure secondary to the above
Hypertensive Emergency secondary to the above
-Patient required BiPAP support at admission. Now currently weaned off to nasal cannula [address]
-CT chest showing consolidation likely atelectasis versus pneumonia with small bilateral effusion
-Repeat echocardiogram showing ejection fraction 40 to 45% with dilated right ventricle and decreased systolic function moderate tricuspid regurgitation with estimated pulmonary artery pressure of 93 mmHg
-Patient getting IV diuretics, weight downtrending
-Follow-up weight and creatinine trend
-Cardiology help appreciated
Bilateral pleural effusion
- Underwent left thoracentesis on 04/05 with drainage of 300 cc of clear yellow fluid
- Transudative fluid with total WBC 625 84% mononuclear cell, LDH 121
- Left lower lobe atelectatic change better after thoracentesis, further antibiotics discontinued.
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
- EKG with non-specific ST-T changes. Initial troponin = 0.043.
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
- Cardiology evaluation as noted above.
- Continue CV med regimen including ASA, statin, etc.
COPD
Severe pulmonary hypertension
- Maintained on nebulizer therapy
- Pulmonology evaluated and low concern of COPD flareup, IV steroids has been discontinued
- Patient to follow-up with pulmonology clinic on outpatient basis.
Bigeminy
- Noted on telemetry. Monitor
Left upper extremity swelling
-Ultrasound negative for DVT
Essential hypertension
-Continue lisinopril, Coreg
Hyperlipidemia
Tobacco use with abuse
-Cessation advised
-Continue with nicotine patch
BPH
- Continue tamsulosin. Bladder scan protocol.
DVT Prophylaxis: Lovenox
Code Status: Full
Care plan discussed with pulmonology
Anticipated Discharge: > 48 hours
Subjective/Interval History
-
Date of Service: April 05, 2025
Denies having dyspnea
Remains on oxygen through nasal cannula
No other acute issues reported
Objective Data
-
Labs:
Laboratory Results
04/05/25
04:36
Carbon Dioxide 40 H
Vital Signs:
Vital Signs
Temp Pulse Resp BP Pulse Ox
98.0 F 83 22 142/68 98
04/05/25 15:51 04/05/25 16:00 04/05/25 16:00 04/05/25 16:00 04/05/25 16:00
I&O
04/04/25 04/05/25 04/06/25
06:59 06:59 06:59
Intake Total 240 / 240 1200 / 1200
Output Total 4350 / 4350 3050 / 3050 900 / 900
Balance -4110 / -4110 -1850 / -1850 -900 / -900
Review of Systems
-
Respiratory: Reports No Symptoms
Cardiac: Reports No Symptoms
Abdomen/GI: Reports No Symptoms
Physical Exam
-
General: Cachectic and Other (frail appearing)
HEENT: Oxygen
Respiratory: Clear to Auscultation; Negative Wheezes or Rales
Cardiac: Regular Rhythm and S1/S2; Negative Murmur
GI: Nontender and Nondistended
Musculoskeletal: No Edema
Neuro: Awake, Alert and Oriented
[2025-04-05] MEDS: FLOMAX 0.4 MG PO (20:03)
[2025-04-05] MEDS: TYLENOL 650 MG PO (20:11)
--- NOTE | 2025-04-05 21:49 | PTCARENOTE ---
patient moving to room 402 bed 1. called and gave verbal report. assessment and vital signs charted.
[2025-04-06] VITALS (8 sets, daily range): BP systolic 100–137; BP diastolic 57–69; PULSE 76–81; O2SAT 90–91; BMI 17.0
[2025-04-06] MEDS: DUONEB 3 ML INH ×6 (00:40→19:12)
[2025-04-06] MEDS: OCEAN, SALINE MIST 2 SPRAYS NASAL (05:42)
[2025-04-06 07:05] LABS: Blood Urea Nitrogen 34 mg/dl (9-20); Calcium 8.4 mg/dl (8.4-10.2); Chloride 88 mmol/L (98-107); Estimated Creatinine Clearance 79 ml/min; Glucose 97 mg/dl (70-99); Potassium 4.3 mmol/L (3.5-5.1); Sodium 133 mmol/L (135-145); eGFR > 60.00
[2025-04-06 07:15] LABS: Hematocrit 44.1 % (39.0-52.0); Hemoglobin 13.7 g/dL (13.0-18.0); Mean Corp Hgb Conc. 31.1 g/dL (33.0-37.0); Mean Corpuscular Volume 97.1 fL (80.0-94.0); Platelet Count 122 10^3/uL (130-400); Red Cell Dist. Width 14.9 % (11.5-14.5)
[2025-04-06 07:16] LABS: Carbon Dioxide 49 mmol/L (22-30)
[2025-04-06] MEDS: PULMICORT 0.5 MG INH ×2 (07:46→19:12)
[2025-04-06] MEDS: LOW STRENGTH ASPIRIN 81 MG PO (08:24)
[2025-04-06] MEDS: ALDACTONE 12.5 MG PO (08:24)
[2025-04-06] MEDS: COREG 3.125 MG PO ×2 (08:24→22:06)
[2025-04-06] MEDS: LASIX 40 MG PO ×2 (08:24→15:50)
[2025-04-06] MEDS: ZESTRIL 5 MG PO (08:24)
[2025-04-06] MEDS: MUCINEX 1200 MG PO ×2 (08:24→20:18)
[2025-04-06] MEDS: HYDROPHOR 1 APPLIC TOPICAL ×2 (08:25→20:18)
--- NOTE | 2025-04-06 10:07 | W.PN.PUL3 ---
Today's Communication / Plan
-
- Continue diuresis
- Await pleural fluid cultures and cytology
- Incentive spirometry, PT, OT, discharge planning
- Long-term prognosis is guarded with severe pulmonary hypertension, pulmonary cachexia and chronic hypoxic respiratory failure
Assessment
-
79-year-old man smoker with history of heart failure with reduced ejection fraction ejection fraction approximately 40%, COPD, ongoing smoking reports progressive fatigue and weakness. Unable to get of his couch for the last 2 days. He does report
chronic progressive shortness of breath over several months to years.
We were consulted on 04/02/2027 for an abnormal chest imaging.
#1. Acute on chronic hypoxic respiratory failure.
- Suspect primarily related to volume overload, pleural effusion, with underlying COPD and severe pulmonary hypertension.
- Continue to optimize volume status, wean oxygen as tolerated, keep SpO2 greater than 90%
#2. Acute on chronic heart failure with reduced ejection fraction. LVEF 40 to 45% (nonischemic cardiomyopathy)
- Cardiology service on case, agree with diuresis
- IV Lasix now transition to oral, twice daily dosing
- Left heart cath in 2023, no significant coronary artery disease noted
#3. Severe pulmonary hypertension.
- Estimated pulmonary artery systolic pressure of 93 noted on recent echocardiogram with moderate TR and severely dilated RV with decreased systolic function.
- Primarily group II PH due to underlying heart failure as well as possibly component of group III with underlying COPD and hypoxia
- Right heart cath in 01/2024, mean PA pressure 35, pulmonary capillary wedge pressure of 24 with PVR of 2.4.
- Prognosis is poor with severe PH, cachexia and chronic respiratory failure.
#4. Left lower lobe opacity, compressive atelectasis due to pleural effusion
- Pneumonia versus compressive atelectasis due to pleural effusion
- IR guided thoracentesis performed 04/05, postprocedure x-ray with improving left lower lobe opacity suggestive of improving atelectasis
- Procalcitonin less than 0.05 on 04/01.
- Discontinued antibiotics
#5. Pleural effusions, L>R
- Trace on the right side and moderate on the left side noted
- S/p IR guided thoracentesis 04/05. Preliminary studies suggestive of transudate. Isolated elevated LDH ratio noted, suspect effect from use of diuresis
- Suspect this is related to underlying congestive heart failure as well as pulmonary hypertension
- Continue diuresis as tolerated
- Discontinued antibiotics
- Follow-up on pleural fluid cultures and cytology
- Needs follow-up imaging as outpatient, if persistent volume loss noted in the left lower lobe, will need bronchoscopy to evaluate for any endobronchial lesions.
#6. h/o COPD with Emphysema
- No wheezing on exam, currently does not appear to be suggestive of COPD exacerbation
- Continue nebulized DuoNeb as well as budesonide
- Discontinued IV steroids, continue diuresis as tolerated
- Resume outpatient follow-up with Dr. Peralta post discharge at [facility] pulmonary clinic. At baseline patient is oxygen dependent and has been on Breo
- Reportedly patient did not tolerate Trelegy or Breztri
Other medical diagnoses:
Tobacco abuse
Hypertension
Hyperlipidemia
BPH
Elevated troponin
DVT prophylaxis-on Lovenox
Nutrition
Early mobilization/PT/OT
d/w primary team. Palliative care appropriate as long-term prognosis is poor.
Outpatient follow-up with Dr. Peralta after discharge
Last time seen was January 2025
Missed appointment 03/09/2025
Had an appointment 04/02/2025 but in the hospital
Short-term follow-up after discharge
Total time spent on this consultation/encounter _46___ minutes which includes review of history, physical exam, medications, laboratory data, personal review of imaging, extensive review of outpatient records, discussion with care team and
respiratory therapy.
Subjective Data
-
Date of Service:
Date of Service: April 06, 2025
Chief Complaint: Pulmonary Follow Up and Dyspnea Follow Up
Subjective:
Patient comfortably lying in bed in no acute distress. No new symptoms reported.
Review of Systems
Genitourinary: Other (Reports minimally improved dyspnea postthoracentesis. No significant cough or expectoration.)
Objective Data
Data Reviewed
Vital Signs / I&O / Oxygen:
Vital Signs
Temp Pulse Resp BP Pulse Ox
98.3 F 66 18 127/69 94
04/06/25 07:05 04/06/25 07:49 04/06/25 07:49 04/06/25 07:05 04/06/25 08:25
Intake and Output
04/05/25 04/06/25 04/07/25
06:59 06:59 06:59
Intake Total 1200 / 1200 480 / 480
Output Total 3050 / 3050 1600 / 1600
Balance -1850 / -1850 -1120 / -1120
SaO2 94
Nasal Cannula flow liters per 4
minute
Physical Exam
General: Respiratory Distress (n) and Comfortable
HEENT: Normocephalic, Anicteric and Moist Mucous Membranes
Cardiovascular: Regular Rhythm and Peripheral Edema (Trace edema)
Respiratory: Wheeze (n), Crackles (Isolated left lower lobe crackles.), Rhonchi (n), Non-Labored Respirations, Accessory Resp Muscle Use (n) and Stridor (n)
GI: Soft, Non Distended and Non Tender
Neurology: Awake, Alert and No Motor Deficits
Skin: Warm, Good Color, Cyanosis (n), Jaundice (n) and Rash (n)
Labs/Micro/Reports
Lab Data
04/06/25 06:10
04/06/25 06:10
Microbiology
04/05/25 14:57 Pleural Fluid Gram Stain - Preliminary
--- NOTE | 2025-04-06 12:00 | W.PN.HOSP.TC ---
Addendum entered and electronically signed by Charles Campa MD 04/07/25 15:50:
Hyponatremia
- mild. monitor.
Addendum entered and electronically signed by Charles Campa MD 04/07/25 07:54:
Stage II pressure inj to sacrum - POA
continue wound care
Original Note:
Today's Communication/Plan
-
encourage activity, PT evaluation
maintain on oral lasix
Assessment / Plan
Assessment / Plan
Acute on Chronic HFrEF
Acute on Chronic Hypoxemic Respiratory Failure secondary to the above
Hypertensive Emergency secondary to the above
-Patient required BiPAP support at admission. Now currently weaned off to nasal cannula 4 L
-CT chest showing consolidation likely atelectasis versus pneumonia with small bilateral effusion
-Repeat echocardiogram showing ejection fraction 40 to 45% with dilated right ventricle and decreased systolic function moderate tricuspid regurgitation with estimated pulmonary artery pressure of 93 mmHg
-Patient IV diuretics has been transition to oral diuretics.
-Follow-up weight and creatinine trend
-Cardiology help appreciated
Bilateral pleural effusion
- Underwent left thoracentesis on 04/05 with drainage of 300 cc of clear yellow fluid
- Transudative fluid with total WBC 625 84% mononuclear cell, LDH 121
- Left lower lobe atelectatic change better after thoracentesis, further antibiotics discontinued.
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
- EKG with non-specific ST-T changes. Initial troponin = 0.043.
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
- Cardiology evaluation as noted above.
- Continue CV med regimen including ASA, statin, etc.
COPD
Severe pulmonary hypertension
- Maintained on nebulizer therapy
- Pulmonology evaluated and low concern of COPD flareup, IV steroids has been discontinued
- Patient to follow-up with pulmonology clinic on outpatient basis.
- Overall prognosis guarded in regards of severe pulmonary hypertension, patient have poor activity/exertion tolerance and may not able to live independent. I had discussed that patient may end up requiring further help if wants to remain
independent. Patient have requested to talk to pulmonology as well.
Bigeminy
- Noted on telemetry. Monitor
Left upper extremity swelling
-Ultrasound negative for DVT
Essential hypertension
-Continue lisinopril, Coreg
Hyperlipidemia
Tobacco use with abuse
-Cessation advised
-Continue with nicotine patch
BPH
- Continue tamsulosin. Bladder scan protocol.
DVT Prophylaxis: Lovenox
Code Status: Full
Anticipated Discharge: 24 - 48 hours
Subjective/Interval History
-
Date of Service: April 06, 2025
Denies having any shortness of breath
Remains on oxygen through nasal cannula at 5 L/m
No new issues reported overnight
Objective Data
-
Labs:
Laboratory Results
04/06/25
06:10
WBC 9.0
Hgb 13.7
Hct 44.1
Plt Count 122 L
Sodium 133 L
Potassium 4.3
Chloride 88 L
Carbon Dioxide 49 H
BUN 34 H
Creatinine 0.7
Glucose 97
Calcium 8.4
Vital Signs:
Vital Signs
Temp Pulse Resp BP Pulse Ox
98.3 F 66 20 127/69 94
04/06/25 07:05 04/06/25 07:49 04/06/25 11:09 04/06/25 07:05 04/06/25 11:09
I&O
04/05/25 04/06/25 04/07/25
06:59 06:59 06:59
Intake Total 1200 / 1200 480 / 480
Output Total 3050 / 3050 1600 / 1600
Balance -1850 / -1850 -1120 / -1120
Review of Systems
-
Respiratory: Reports No Symptoms
Cardiac: Reports No Symptoms
Abdomen/GI: Reports No Symptoms
Physical Exam
-
General: Cachectic and Other (frail appearing)
HEENT: Oxygen
Respiratory: Clear to Auscultation; Negative Wheezes or Rales
Cardiac: Regular Rhythm and S1/S2; Negative Murmur
GI: Nontender and Nondistended
Musculoskeletal: No Edema
Neuro: Awake, Alert and Oriented
--- NOTE | 2025-04-06 14:41 | PN.CDI ---
CDI
- -
CDI:
Physician Documentation Request
Admit Date: 03/31/25 23:02
Dear Doctor,
Patient admitted for heart failure.
04/01 Wound Care Note: 'Patient admitted with stage 2 to sacral coccyx. There appear to be 3 superficial open areas and were measured in cluster...Heels with adherent stool even after washed by nursing last night and this check writer salesperson today. Suspect stage
1 PI to heels as they did not appear to be blanchable.'
Selected Entries
04/05/25
23:00
Pressure injury appearance (Stage 1) [Present on admission Bilateral Heel] Non blanchable
red
Pressure injury stage [Present on admission Bilateral Heel] Stage 1
Wound treatment comments [Present on admission Bilateral Heel] heels foams
applied
04/05/25
23:00
Pressure injury appearance [Present on admission Sacrum] [place] wound bed
Pressure injury stage [Present on admission Sacrum] Stage 2
Treatment provided [Present on admission Sacrum] Cleansed with
saline
Silicone border
foam
Wound treatment comments [Present on admission Sacrum] calazime cream
Physician documentation of the type and location of wounds is required for compliant documentation. Based on the above clinical findings and your assessment, please provide the following in your progress note:
1. Location of the ulcer/wound, including laterality.
2. Type (etiology) of ulcer/wound:
- Diabetic ulcer
- Arterial (ischemic) ulcer
- Traumatic wound
- Venous stasis ulcer
- Pressure (decubitus) ulcer
- Non-healing surgical wound
- Other
- Unable to determine
3. For a non-pressure ulcer, please indicate the depth/severity:
- Limited to the breakdown of skin
- With fat layer exposed
- With necrosis of muscle
- With necrosis of bone
- Other
- Unable to determine
4. If a pressure ulcer, please also include the stage* of the ulcer:
- Stage 1 - Skin intact, non-blanchable redness
- Stage 2 - Partial thickness loss of dermis, includes intact or open blister
- Stage 3 - Full thickness tissue not including bone, tendon or muscle
- Stage 4 - Full thickness tissue loss, including exposed bone, tendon or muscle
- Unstageable - Full thickness loss in which the base of the ulcer is covered by slough (yellow, duffy, villagomez, green or brown) and/or eschar (duffy, brown or black) in the wound bed.
- Unable to determine
Use of terms such as suspected, likely, concern for, or probable (associated with a specific diagnosis that is being evaluated, monitored, or treated as if it exists) are acceptable and can be coded in the inpatient setting, when documented at the
time of discharge.
Thank you,
Leidy Franklin RN, BSN
CDI Specialist
Available via [place] text
Please use your independent medical judgment in providing your response.
*Source: National Pressure Ulcer Advisory Panel (NPUAP)
--- NOTE | 2025-04-06 16:39 | CM ---
Spoke with patient in room .
Reviewed PT evals of SNF.
Pt resistant to SNF placement.
Pt is assist of 2 and lives alone.
On oxygen 2.5 liter Pox 91% . Has home oxygen.
Pt said he will speak with his friends about dc planning.
PLAN On going SNF VS Home with VN
[2025-04-06] MEDS: LOVENOX 40 MG SC (17:39)
[2025-04-06] MEDS: TYLENOL 650 MG PO (20:18)
[2025-04-06] MEDS: FLOMAX 0.4 MG PO (20:18)
[2025-04-07] VITALS (7 sets, daily range): BP systolic 98–122; BP diastolic 43–61; PULSE 77; O2SAT 89; BMI 17.4; BMI 16.2
[2025-04-07] MEDS: PULMICORT 0.5 MG INH (07:07)
[2025-04-07] MEDS: DUONEB 3 ML INH ×3 (07:07→19:11)
[2025-04-07 07:34] LABS: Hematocrit 43.1 % (39.0-52.0); Hemoglobin 13.4 g/dL (13.0-18.0); Mean Corp Hgb Conc. 31.1 g/dL (33.0-37.0); Mean Corpuscular Volume 98.9 fL (80.0-94.0); Platelet Count 105 10^3/uL (130-400); Red Cell Dist. Width 14.9 % (11.5-14.5)
[2025-04-07 07:51] LABS: Blood Urea Nitrogen 31 mg/dl (9-20); Calcium 8.3 mg/dl (8.4-10.2); Chloride 86 mmol/L (98-107); Estimated Creatinine Clearance 95 ml/min; Glucose 108 mg/dl (70-99); Potassium 4.2 mmol/L (3.5-5.1); Sodium 133 mmol/L (135-145); eGFR > 60.00
[2025-04-07] MEDS: MUCINEX 1200 MG PO ×2 (08:14→20:07)
[2025-04-07] MEDS: ALDACTONE 12.5 MG PO (08:14)
[2025-04-07] MEDS: LASIX 40 MG PO ×2 (08:15→17:22)
[2025-04-07] MEDS: ZESTRIL 5 MG PO (08:15)
[2025-04-07] MEDS: LOW STRENGTH ASPIRIN 81 MG PO (08:15)
[2025-04-07] MEDS: COREG 3.125 MG PO ×2 (08:16→21:56)
[2025-04-07] MEDS: HYDROPHOR 1 APPLIC TOPICAL ×2 (08:16→20:07)
[2025-04-07 09:29] LABS: Carbon Dioxide 46 mmol/L (22-30)
[2025-04-07] MEDS: MIRALAX 17 GRAMS PO (10:50)
[2025-04-07] MEDS: TYLENOL 650 MG PO (10:58)
--- NOTE | 2025-04-07 12:46 | PN.CDI ---
CDI
- -
CDI:
Physician Documentation Request
Admit Date: 03/31/25 23:02
Dear Doctor,
Patient admitted for heart failure.
Laboratory Tests
04/03/25 04/04/25 04/05/25
04:07 04:44 04:36
Sodium 134 L 133 L 134 L
04/06/25 04/07/25
06:10 06:07
Sodium 133 L 133 L
Based on the above, could you clarify in the progress notes, the appropriate diagnosis, if significant, that supports the above abnormalities and additional evaluation, monitoring and/or treatment rendered:
Hyponatremia
Abnormal lab value insignificant
Other
Use of terms such as suspected, likely, concern for, or probable (associated with a specific diagnosis that is being evaluated, monitored, or treated as if it exists) are acceptable and can be coded in the inpatient setting, when documented at the
time of discharge.
Thank you,
Leidy Franklin RN, BSN
CDI Specialist
Available via [place] text
Please use your independent medical judgment in providing your response.
--- NOTE | 2025-04-07 14:25 | W.PN.PUL3 ---
Today's Communication / Plan
-
- PT/OT
- Discharge planning
- Prognosis is guarded. Goals of care discussions.
Assessment
-
79-year-old man smoker with history of heart failure with reduced ejection fraction ejection fraction approximately 40%, COPD, ongoing smoking reports progressive fatigue and weakness. Unable to get of his couch for the last 2 days. He does report
chronic progressive shortness of breath over several months to years.
We were consulted on 04/02/2027 for an abnormal chest imaging.
#1. Acute on chronic hypoxic respiratory failure.
- Suspect primarily related to volume overload, pleural effusion, with underlying COPD and severe pulmonary hypertension.
- Continue to optimize volume status, wean oxygen as tolerated, keep SpO2 greater than 90%
#2. Acute on chronic heart failure with reduced ejection fraction. LVEF 40 to 45% (nonischemic cardiomyopathy)
- Cardiology service on case, agree with diuresis
- IV Lasix now transitioned to oral, twice daily dosing
- Left heart cath in 2023, no significant coronary artery disease noted
#3. Severe pulmonary hypertension.
- Estimated pulmonary artery systolic pressure of 93 noted on recent echocardiogram with moderate TR and severely dilated RV with decreased systolic function.
- Primarily group II PH due to underlying heart failure as well as possibly component of group III with underlying COPD and hypoxia
- Right heart cath in 01/2024, mean PA pressure 35, pulmonary capillary wedge pressure of 24 with PVR of 2.4.
- Prognosis is poor with severe PH, cachexia and chronic respiratory failure. Functional status is poor. Had long discussion with patient. We briefly talked about Code status, I went over full code vs DNR/DNI. We discussed with high risk of
mortality and morbidity with severe Pulmonary HTN. Patient wants to discuss with Cardiology service further.
#4. Left lower lobe opacity, compressive atelectasis due to pleural effusion
- Pneumonia versus compressive atelectasis due to pleural effusion
- IR guided thoracentesis performed 04/05, postprocedure x-ray with improving left lower lobe opacity suggestive of improving atelectasis
- Procalcitonin less than 0.05 on 04/01.
- Discontinued antibiotics
#5. Pleural effusions, L>R
- Trace on the right side and moderate on the left side noted
- S/p IR guided thoracentesis 04/05. Preliminary studies suggestive of transudate. Isolated elevated LDH ratio noted, suspect effect from use of diuresis
- Suspect this is related to underlying congestive heart failure as well as pulmonary hypertension
- Continue diuresis as tolerated
- Discontinued antibiotics
- Follow-up on pleural fluid cultures and cytology
- Needs follow-up imaging as outpatient, if persistent volume loss noted in the left lower lobe, may need bronchoscopy to evaluate for any endobronchial lesions.
#6. h/o COPD with Emphysema
- No wheezing on exam, currently does not appear to be suggestive of COPD exacerbation
- Continue nebulized DuoNeb as well as budesonide
- Discontinued IV steroids, continue diuresis as tolerated
- Resume outpatient follow-up with Dr. Peralta post discharge at [facility] pulmonary clinic. At baseline patient is oxygen dependent and has been on Breo
- Reportedly patient did not tolerate Trelegy or Breztri
Other medical diagnoses:
Tobacco abuse
Hypertension
Hyperlipidemia
BPH
Elevated troponin
DVT prophylaxis-on Lovenox
Nutrition
Early mobilization/PT/OT
d/w primary team. Palliative care appropriate as long-term prognosis is poor.
Outpatient follow-up with Dr. Peralta after discharge
Last time seen was January 2025
Missed appointment 03/09/2025
Had an appointment 04/02/2025 but in the hospital
Short-term follow-up after discharge
Total time spent on this consultation/encounter _42___ minutes which includes review of history, physical exam, medications, laboratory data, personal review of imaging, extensive review of outpatient records, discussion with care team and
respiratory therapy.
Subjective Data
-
Date of Service:
Date of Service: April 07, 2025
Chief Complaint: Pulmonary Follow Up and Dyspnea Follow Up
Subjective:
Comfortably lying in bed in no acute distress. Patient reports feeling about the same.
Review of Systems
Genitourinary: Other (No new symptoms reported)
Objective Data
Data Reviewed
Vital Signs / I&O / Oxygen:
Vital Signs
Temp Pulse Resp BP Pulse Ox
97.7 F 80 16 98/43 97
04/07/25 11:05 04/07/25 11:06 04/07/25 11:06 04/07/25 11:05 04/07/25 11:16
Intake and Output
04/06/25 04/07/25 04/08/25
06:59 06:59 06:59
Intake Total 480 / 480 1470 / 1470
Output Total 1600 / 1600 3625 / 3625
Balance -1120 / -1120 -2155 / -2155
SaO2 97
Nasal Cannula flow liters per 4
minute
Physical Exam
General: Respiratory Distress (n) and Comfortable
HEENT: Normocephalic, Anicteric and Moist Mucous Membranes
Cardiovascular: Regular Rhythm and Peripheral Edema (Trace edema)
Respiratory: Wheeze (n), Crackles (Isolated left lower lobe crackles.), Rhonchi (n), Non-Labored Respirations, Accessory Resp Muscle Use (n) and Stridor (n)
GI: Soft, Non Distended and Non Tender
Neurology: Awake, Alert and No Motor Deficits
Skin: Warm, Good Color, Cyanosis (n), Jaundice (n) and Rash (n)
Labs/Micro/Reports
Lab Data
04/07/25 06:07
04/07/25 06:07
Microbiology
04/05/25 14:57 Pleural Fluid Body Fluid Culture - Preliminary
No Growth After 48 Hours
04/05/25 14:57 Pleural Fluid Gram Stain - Preliminary
[2025-04-07] MEDS: LOVENOX 40 MG SC (17:22)
[2025-04-07] MEDS: FLOMAX 0.4 MG PO (20:07)
[2025-04-08] VITALS (8 sets, daily range): BP systolic 102–143; BP diastolic 46–54; PULSE 71; O2SAT 96; BMI 16.1
[2025-04-08] MEDS: DUONEB 3 ML INH (07:27)
[2025-04-08 07:42] LABS: Blood Urea Nitrogen 37 mg/dl (9-20); Calcium 8.5 mg/dl (8.4-10.2); Chloride 85 mmol/L (98-107); Estimated Creatinine Clearance 88 ml/min; Glucose 111 mg/dl (70-99); Potassium 4.7 mmol/L (3.5-5.1); Sodium 133 mmol/L (135-145); eGFR > 60.00
[2025-04-08 08:14] LABS: Hematocrit 45.5 % (39.0-52.0); Hemoglobin 14.0 g/dL (13.0-18.0); Mean Corp Hgb Conc. 30.8 g/dL (33.0-37.0); Mean Corpuscular Volume 98.7 fL (80.0-94.0); Platelet Count 105 10^3/uL (130-400); Red Cell Dist. Width 15.2 % (11.5-14.5)
[2025-04-08] MEDS: MUCINEX 1200 MG PO ×2 (08:54→21:22)
[2025-04-08] MEDS: ALDACTONE 12.5 MG PO (08:54)
[2025-04-08] MEDS: MIRALAX 17 GRAMS PO (08:54)
[2025-04-08] MEDS: ZESTRIL 5 MG PO (08:56)
[2025-04-08] MEDS: LOW STRENGTH ASPIRIN 81 MG PO (08:56)
[2025-04-08] MEDS: LASIX 40 MG PO (08:56)
[2025-04-08] MEDS: COREG 3.125 MG PO ×2 (08:56→21:23)
[2025-04-08] MEDS: HYDROPHOR 1 APPLIC TOPICAL ×2 (08:57→21:23)
[2025-04-08] MEDS: TYLENOL 650 MG PO ×3 (08:58→21:21)
[2025-04-08 09:06] LABS: Carbon Dioxide 50 mmol/L (22-30)
--- NOTE | 2025-04-08 10:31 | W.PN.HOSP.TC ---
Today's Communication/Plan
-
ongoing GOC (inpatient, outpatient)
DC planning to SNF in 24-48 hours
Assessment / Plan
Assessment / Plan
Assessment:
Acute on Chronic HFrEF
Acute on Chronic Hypoxemic Respiratory Failure secondary to the above
Hypertensive Emergency secondary to the above
-Patient required BiPAP support at admission. Now currently weaned off to nasal cannula 6 L - midflow O2
-CT chest showing consolidation likely atelectasis versus pneumonia with small bilateral effusion
-Repeat echocardiogram showing ejection fraction 40 to 45% with dilated right ventricle and decreased systolic function moderate tricuspid regurgitation with estimated pulmonary artery pressure of 93 mmHg
-Patient IV Lasix has been transition to oral Lasix 40mg BID
-Follow-up weight and creatinine trend
-Cardiology signed off
Bilateral pleural effusion
- Underwent left thoracentesis on 04/05 with drainage of 300 cc of clear yellow fluid
- Transudative fluid with total WBC 625 84% mononuclear cell, LDH 121
- Left lower lobe atelectatic change better after thoracentesis, further antibiotics discontinued.
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
- EKG with non-specific ST-T changes. Initial troponin = 0.043.
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
- Cardiology evaluation as noted above.
- Continue CV med regimen including ASA, statin, etc.
COPD
Severe pulmonary hypertension
- Maintained on nebulizer therapy
- Pulmonology evaluated and low concern of COPD flareup, IV steroids has been discontinued
- Patient to follow-up with pulmonology clinic on outpatient basis.
- Overall prognosis guarded in regards of severe pulmonary hypertension, patient have poor activity/exertion tolerance and may not able to live independent. Drs. Campa/Jacob had discussed that patient may end up requiring further help if wants to
remain independent. Patient will contemplate palliative care. Wants to go to SNF first. CM notified.
Bigeminy
- Noted on telemetry. Monitor
Left upper extremity swelling
- Ultrasound negative for DVT
Essential hypertension
- Continue lisinopril, Coreg
Hyperlipidemia
Tobacco use with abuse
- Cessation advised
- Continue with nicotine patch
BPH
- Continue tamsulosin. Bladder scan protocol.
DVT Prophylaxis: Lovenox
Code Status: Full
Dispo: to SNF. Notified patient that he is medically stable for DC. CM notified to send SNF referrals. Expressed to patient that he is medically stable for DC to SNF Saturday, he states earliest he would feel ready is Saturday. Explained to patient
that as early as possible transition to SNF will help him functionally recover faster. He expressed understanding.
Anticipated Discharge: 24 - 48 hours
Subjective/Interval History
-
Date of Service: April 08, 2025
reports he is not ready for DC; stating he needs 'several more days'
discussed with patient that being in hospital actually will put him behind on his rehab regimen; he understands.
Denies any new SOB or CP
recalls conversations about palliative care and states 'I have some decisions to make, but I have not made them yet'
Objective Data
-
Labs:
Laboratory Results
04/08/25
06:04
WBC 8.6
Hgb 14.0
Hct 45.5
Plt Count 105 L
Sodium 133 L
Potassium 4.7
Chloride 85 L
Carbon Dioxide 50 H
BUN 37 H
Creatinine 0.6 L
Glucose 111 H
Calcium 8.5
Vital Signs:
Vital Signs
Temp Pulse Resp BP Pulse Ox
98.3 F 72 18 126/51 99
04/08/25 07:10 04/08/25 08:54 04/08/25 07:30 04/08/25 08:54 04/08/25 08:00
I&O
04/07/25 04/08/25 04/09/25
06:59 06:59 06:59
Intake Total 1470 / 1470 930 / 930
Output Total 3625 / 3625 1100 / 1100
Balance -2155 / -2155 -170 / -170
Physical Exam
-
General: Appears Chronically Ill and Cachectic
HEENT: Normocephalic and Atraumatic
Respiratory: Crackles; Negative Wheezes
Cardiac: Regular Rhythm and S1/S2
GI: Soft and Nontender
Genito-urinary: No Costovertebral Tender
Musculoskeletal: No Edema
Neuro: AO x 3
Hematologic / Lymphatic: No Lymphadenopathy
Psych: Calm
Data Reviewed
-
Total Time Spent with Patient (in minutes): 42
Labs: Labs Reviewed by me
--- NOTE | 2025-04-08 13:57 | W.PN.PUL3 ---
Today's Communication / Plan
-
- Lowered Lasix to 40 mg once a day
- Normal saline at 50 cc an hour for 5 hours, total of 250 mL
- Follow-up VBG and BMP in a.m.
- Recommend palliative care consult, poor prognosis
Assessment
-
79-year-old man smoker with history of heart failure with reduced ejection fraction ejection fraction approximately 40%, COPD, ongoing smoking reports progressive fatigue and weakness. Unable to get of his couch for the last 2 days. He does report
chronic progressive shortness of breath over several months to years.
We were consulted on 04/02/2027 for an abnormal chest imaging.
#1. Acute on chronic hypoxic respiratory failure.
- Suspect primarily related to volume overload, pleural effusion, with underlying COPD and severe pulmonary hypertension.
- Continue to optimize volume status, wean oxygen as tolerated, keep SpO2 greater than 90%
- Follow-up chest x-ray pursued today, essentially unchanged. Dyspnea persists, suspect a significant contribution from underlying severe pulmonary hypertension.
#2. Acute on chronic heart failure with reduced ejection fraction. LVEF 40 to 45% (nonischemic cardiomyopathy)
- Cardiology service on case, agree with diuresis
- IV Lasix now transitioned to oral, twice daily dosing
- Left heart cath in 2023, no significant coronary artery disease noted
- Serum bicarbonate elevated to 50, serum chloride down to 85, suspect worsening contraction metabolic alkalosis exacerbated by concomitant chronic hypercapnia. Decrease Lasix to once a day, replaced normal saline at 50 mL/h for total of 250 mL.
Follow-up venous blood gas as well as BMP in a.m. depending upon clinical course, will consider Diamox.
#3. Severe pulmonary hypertension.
- Estimated pulmonary artery systolic pressure of 93 noted on recent echocardiogram with moderate TR and severely dilated RV with decreased systolic function.
- Primarily group II PH due to underlying heart failure as well as possibly component of group III with underlying COPD and hypoxia
- Right heart cath in 01/2024, mean PA pressure 35, pulmonary capillary wedge pressure of 24 with PVR of 2.4.
- Prognosis is poor with severe PH, cachexia and chronic respiratory failure. Functional status is poor. Had long discussion with patient. We briefly talked about Code status, I went over full code vs DNR/DNI. We discussed with high risk of
mortality and morbidity with severe Pulmonary HTN.
#4. Left lower lobe opacity, compressive atelectasis due to pleural effusion
- Pneumonia versus compressive atelectasis due to pleural effusion
- IR guided thoracentesis performed 04/05, postprocedure x-ray with improving left lower lobe opacity suggestive of improving atelectasis
- Procalcitonin less than 0.05 on 04/01.
- Discontinued antibiotics
#5. Pleural effusions, L>R
- Trace on the right side and moderate on the left side noted
- S/p IR guided thoracentesis 04/05. Preliminary studies suggestive of transudate. Isolated elevated LDH ratio noted, suspect effect from use of diuresis
- Suspect this is related to underlying congestive heart failure as well as pulmonary hypertension
- Continue diuresis as tolerated
- Discontinued antibiotics
- Follow-up on pleural fluid cultures and cytology
- Needs follow-up imaging as outpatient, if persistent volume loss noted in the left lower lobe, may need bronchoscopy to evaluate for any endobronchial lesions.
#6. h/o COPD with Emphysema
- No wheezing on exam, currently does not appear to be suggestive of COPD exacerbation
- Continue nebulized DuoNeb as well as budesonide
- Discontinued IV steroids, continue diuresis as tolerated
- Resume outpatient follow-up with Dr. Peralta post discharge at [facility] pulmonary clinic. At baseline patient is oxygen dependent and has been on Breo
- Reportedly patient did not tolerate Trelegy or Breztri
Other medical diagnoses:
Tobacco abuse
Hypertension
Hyperlipidemia
BPH
Elevated troponin
DVT prophylaxis-on Lovenox
Nutrition
Early mobilization/PT/OT
d/w primary team. Palliative care appropriate as long-term prognosis is poor.
Outpatient follow-up with Dr. Peralta after discharge
Last time seen was January 2025
Missed appointment 03/09/2025
Had an appointment 04/02/2025 but in the hospital
Short-term follow-up after discharge
Total time spent on this consultation/encounter _46___ minutes which includes review of history, physical exam, medications, laboratory data, personal review of imaging, extensive review of outpatient records, discussion with care team and
respiratory therapy.
Subjective Data
-
Date of Service:
Date of Service: April 08, 2025
Chief Complaint: Pulmonary Follow Up and Dyspnea Follow Up
Subjective:
Patient lying in bed in no acute distress, reports feeling about the same.
Review of Systems
Genitourinary: Other (No new symptoms reported)
Objective Data
Data Reviewed
Vital Signs / I&O / Oxygen:
Vital Signs
Temp Pulse Resp BP Pulse Ox
98.2 F 69 18 110/46 92
04/08/25 11:10 04/08/25 11:10 04/08/25 11:10 04/08/25 11:10 04/08/25 11:10
Intake and Output
04/07/25 04/08/25 04/09/25
06:59 06:59 06:59
Intake Total 1470 / 1470 930 / 930
Output Total 3625 / 3625 1100 / 1100
Balance -2155 / -2155 -170 / -170
SaO2 92
Nasal Cannula flow liters per 4
minute
Physical Exam
General: Respiratory Distress (n) and Comfortable
HEENT: Normocephalic, Anicteric and Moist Mucous Membranes
Cardiovascular: Regular Rhythm and Peripheral Edema (Trace edema)
Respiratory: Wheeze (n), Crackles (Isolated left lower lobe crackles.), Rhonchi (n), Non-Labored Respirations, Accessory Resp Muscle Use (n) and Stridor (n)
GI: Soft, Non Distended and Non Tender
Neurology: Awake, Alert and No Motor Deficits
Skin: Warm, Good Color, Cyanosis (n), Jaundice (n) and Rash (n)
Labs/Micro/Reports
Lab Data
04/08/25 06:04
04/08/25 06:04
Microbiology
04/05/25 14:57 Pleural Fluid Body Fluid Culture - Final
No Growth After 72 Hours
04/05/25 14:57 Pleural Fluid Gram Stain - Final
04/05/25 14:56 Pleural Fluid Acid Fast Bacilli Smear - Preliminary
04/05/25 14:56 Pleural Fluid Acid Fast Bacilli Culture - Preliminary
[2025-04-08] MEDS: NSS 250 IV (14:27)
--- NOTE | 2025-04-08 15:15 | CM ---
Spoke with patient in room .
Reviewed PT evals of SNF.
Pt accepted SNF placement.
On oxygen 4 liter Pox 96% . Has home oxygen.
Referral placed on [facility] .
Will need auth.
PLAN Locate SNF obtain auth
[2025-04-08] MEDS: LOVENOX 40 MG SC (17:24)
[2025-04-08] MEDS: FLOMAX 0.4 MG PO (21:22)
[2025-04-09] VITALS (9 sets, daily range): BP systolic 108–133; BP diastolic 48–58; PULSE 2–72; O2SAT 94; BMI 16.6
[2025-04-09] MEDS: TYLENOL 650 MG PO ×2 (02:35→20:31)
[2025-04-09 07:16] LABS: Venous Blood Gas B.E. 17.3 mmol/L (-4 to +4); Venous Blood Gas O2 Sat % 44.0 %
[2025-04-09 07:27] LABS: Hematocrit 43.9 % (39.0-52.0); Hemoglobin 13.5 g/dL (13.0-18.0); Mean Corp Hgb Conc. 30.8 g/dL (33.0-37.0); Mean Corpuscular Volume 99.3 fL (80.0-94.0); Platelet Count 129 10^3/uL (130-400); Red Cell Dist. Width 15.1 % (11.5-14.5)
[2025-04-09 07:54] LABS: Blood Urea Nitrogen 31 mg/dl (9-20); Calcium 8.2 mg/dl (8.4-10.2); Chloride 89 mmol/L (98-107); Estimated Creatinine Clearance 90 ml/min; Glucose 102 mg/dl (70-99); Potassium 5.9 mmol/L (3.5-5.1); Sodium 137 mmol/L (135-145); eGFR > 60.00
--- NOTE | 2025-04-09 07:57 | W.CON.PAL ---
Consultation
-
Date/Time Consultation Requested: 04/08
Date/Time Consultation Performed: 04/09
Performing Provider: Catherine Zhang
Reason for Consult: Goals of Care Discussion
Reason for Admission
Illness Course/HPI
79 year old M with history of heart failure with reduced EF40%, COPD admitted with progressive fatigue and weakness. Chronic bronchitis symptoms. Initially treated for CHF and COPD exacerbation - imaging more consistent with CHF. Also with severe
pHTN. Diuresed and now planning on rehab.
Given his end stage COPD, severe pHTN and poor functional status, consulted for GOC.
Seen at bedside with no family present. Patient reports feeling crappy, not being able to tolerate cpap mask. We discussed the severity of his conditions, he expressed understanding that his long term care social worker prognosis is not good. His goal right now is to
get home and back on his feet. Was previously living alone and goal is to get back. Reports he has family and friends and alot of support. He wants rehab. He is open to home palliative visits after he gets home from rehab, will contact him in a few
weeks to see if he is still interested.
Objective Data
-
Objective Data:
Vital Signs
Temp Pulse Resp BP Pulse Ox
97.7 F 68 20 122/48 93
04/09/25 07:00 04/09/25 07:00 04/09/25 07:00 04/09/25 07:00 04/09/25 07:00
Laboratory Results
04/09/25 06:55
04/09/25 06:55
Hemoglobin A1c 5.4 % (4.0-5.9) 04/01/25 01:27
Total Protein Cancelled 04/05/25 14:57
Albumin Cancelled 03/31/25 20:33
Palliative Performance Scale
Palliative Performance Scale:
PPS Level Ambulation Activity & Evidence of Disease Self Care Intake Conscious Level
100% Full Normal Activity & Work; Full Intake Full
No Evidence of Disease
90% Full Normal Activity & Work; Full Normal Full
Some Evidence of Disease
80% Full Normal Activity with Effort Full Normal or Full
Some Evidence of Disease Reduced
70% Reduced Unable Normal Job/Work Full Normal or Full
Significant Disease Reduced
60% Reduced Unable Hobby/Housework Occasional Normal or Full or Confusion
Significant Disease Assistance Reduced
50% Mainly Sit/Lie Unable to do Any Work Considerable Normal or Full or Confusion
Extensive Disease Assistance Req'd Reduced
40% Mainly in Bed Unable to do Most Activity Mainly Assistance Normal or Full or Drowsy;
Extensive Disease Reduced +/- Confusion
30% Totally Bed Unable to do Any Activity Total Care Normal or Full or Drowsy;
Bound Extensive Disease Reduced +/- Confusion
20% Totally Bed Bound Unable to do Any Activity Total Care Minimal to Full or Drowsy;
Extensive Disease Sips +/- Confusion
10% Totally Bed Bound Unable to do Any Activity Total Care Mouth Care Drowsy or Coma;
Extensive Disease Only +/- Confusion
0%
PPS Score Level:
Physical Exam
-
General: Well Developed and Cachectic
HEENT: Normocephalic
Respiratory: Decreased Breath Sounds
Cardiac: Regular Rhythm
GI: Soft
Neuro: AO x 3
Psych: Calm
Care Reviewed
Data Reviewed
Chest X ray: Report Reviewed
Radiology procedure: Report Reviewed
Medical Tests: I reviewed
Reviewed with: Patient and Physician
[2025-04-09] MEDS: LASIX 40 MG PO (08:03)
[2025-04-09] MEDS: COREG 3.125 MG PO ×2 (08:03→20:31)
[2025-04-09] MEDS: MUCINEX 1200 MG PO ×2 (08:03→20:31)
[2025-04-09] MEDS: LOW STRENGTH ASPIRIN 81 MG PO (08:03)
[2025-04-09] MEDS: HYDROPHOR 1 APPLIC TOPICAL ×2 (08:05→21:46)
[2025-04-09] MEDS: MIRALAX 17 GRAMS PO (08:05)
[2025-04-09 09:08] LABS: Carbon Dioxide 50 mmol/L (22-30)
--- NOTE | 2025-04-09 12:28 | PTCARENOTE ---
pt refused Bipap. made aware. pt back on 4L 02 midflow.
--- NOTE | 2025-04-09 12:43 | W.PN.PUL3 ---
Today's Communication / Plan
-
- Initiate BiPAP 12 x 5 nightly and as needed during daytime
- Follow-up VBG
- Goals of care discussion, palliative care consult
Assessment
-
79-year-old man smoker with history of heart failure with reduced ejection fraction ejection fraction approximately 40%, COPD, ongoing smoking reports progressive fatigue and weakness. Unable to get of his couch for the last 2 days. He does report
chronic progressive shortness of breath over several months to years.
We were consulted on 04/02/2027 for an abnormal chest imaging.
#1. Acute on chronic hypoxic respiratory failure.
- Suspect primarily related to volume overload, pleural effusion, with underlying COPD and severe pulmonary hypertension.
- Continue to optimize volume status, wean oxygen as tolerated, keep SpO2 greater than 90%
- Dyspnea persists, suspect a significant contribution from underlying severe pulmonary hypertension. F/u CXR unchanged.
#2. Acute on chronic heart failure with reduced ejection fraction. LVEF 40 to 45% (nonischemic cardiomyopathy)
- Cardiology service on case, agree with diuresis
- IV Lasix now transitioned to oral, twice daily dosing
- Left heart cath in 2023, no significant coronary artery disease noted
- 04/08, Serum bicarbonate elevated to 50, serum chloride down to 85, suspect worsening contraction metabolic alkalosis exacerbated by concomitant chronic hypercapnia. Decreased Lasix to once a day, replaced normal saline at 50 mL/h for total of
250 mL. Serum Cl up to 89 on 04/09. Depending upon clinical course, will consider Diamox.
#3. Severe pulmonary hypertension.
- Estimated pulmonary artery systolic pressure of 93 noted on recent echocardiogram with moderate TR and severely dilated RV with decreased systolic function.
- Primarily group II PH due to underlying heart failure as well as possibly component of group III with underlying COPD and hypoxia
- Right heart cath in 01/2024, mean PA pressure 35, pulmonary capillary wedge pressure of 24 with PVR of 2.4.
- Prognosis is poor with severe PH, cachexia and chronic respiratory failure. Functional status is poor. Had long discussion with patient. We briefly talked about Code status, I went over full code vs DNR/DNI. We discussed with high risk of
mortality and morbidity with severe Pulmonary HTN.
#4. Left lower lobe opacity, compressive atelectasis due to pleural effusion
- Pneumonia versus compressive atelectasis due to pleural effusion
- IR guided thoracentesis performed 04/05, postprocedure x-ray with improving left lower lobe opacity suggestive of improving atelectasis
- Procalcitonin less than 0.05 on 04/01.
- Discontinued antibiotics
#5. Pleural effusions, L>R
- Trace on the right side and moderate on the left side noted
- S/p IR guided thoracentesis 04/05. Preliminary studies suggestive of transudate. Isolated elevated LDH ratio noted, suspect effect from use of diuresis
- Suspect this is related to underlying congestive heart failure as well as pulmonary hypertension
- Continue diuresis as tolerated
- Discontinued antibiotics
- Pleural fluid cultures and cytology negative
- Needs follow-up imaging as outpatient, if persistent volume loss noted in the left lower lobe, may need bronchoscopy to evaluate for any endobronchial lesions.
#6. h/o COPD with Emphysema
- No wheezing on exam, currently does not appear to be suggestive of COPD exacerbation
- Continue nebulized DuoNeb as well as budesonide
- Discontinued IV steroids, continue diuresis as tolerated
- Resume outpatient follow-up with Dr. Peralta post discharge at [facility] pulmonary clinic. At baseline patient is oxygen dependent and has been on Breo
- Reportedly patient did not tolerate Trelegy or Breztri
#7. Acute on chronic hypercapnic respiratory failure.
- Patient has baseline chronic compensated hypercapnic respiratory failure due to end-stage COPD.
- 04/09, VBG 7.29/103 suggestive of worsening CO2 retention. BiPAP was initiated. Patient otherwise was awake, alert, oriented x 3. Patient kept BiPAP only briefly. Follow-up VBG pending.
- In view of chronic hypercapnia and advanced COPD, persistent respiratory failure, will initiate nightly BiPAP therapy, can use during daytime on an as needed basis as well.
Other medical diagnoses:
Tobacco abuse
Hypertension
Hyperlipidemia
BPH
Elevated troponin
DVT prophylaxis-on Lovenox
Nutrition
Early mobilization/PT/OT
d/w primary team. Palliative care appropriate as long-term prognosis is poor.
Outpatient follow-up with Dr. Peralta after discharge
Last time seen was January 2025
Missed appointment 03/09/2025
Had an appointment 04/02/2025 but in the hospital
Short-term follow-up after discharge
Total time spent on this consultation/encounter _46___ minutes which includes review of history, physical exam, medications, laboratory data, personal review of imaging, extensive review of outpatient records, discussion with care team and
respiratory therapy.
Subjective Data
-
Date of Service:
Date of Service: April 09, 2025
Chief Complaint: Pulmonary Follow Up and Dyspnea Follow Up
Subjective:
Patient comfortable lying in bed in no acute distress.
Review of Systems
Genitourinary: Other (All 14 systems reviewed and negative except as stated above in the history of present illness.)
Objective Data
Data Reviewed
Vital Signs / I&O / Oxygen:
Vital Signs
Temp Pulse Resp BP Pulse Ox
97.6 F 66 20 114/48 94
04/09/25 11:00 04/09/25 11:00 04/09/25 11:00 04/09/25 11:00 04/09/25 11:13
Intake and Output
04/08/25 04/09/25 04/10/25
06:59 06:59 06:59
Intake Total 930 / 930 778 / 778 300 / 300
Output Total 1100 / 1100 1000 / 1000 775 / 775
Balance -170 / -170 -222 / -222 -475 / -475
SaO2 94
Nasal Cannula flow liters per 4
minute
Physical Exam
General: Respiratory Distress (n) and Comfortable
HEENT: Normocephalic, Anicteric and Moist Mucous Membranes
Cardiovascular: Regular Rhythm and Peripheral Edema (Trace edema)
Respiratory: Wheeze (n), Crackles (Isolated left lower lobe crackles.), Rhonchi (n), Non-Labored Respirations, Accessory Resp Muscle Use (n) and Stridor (n)
GI: Soft, Non Distended and Non Tender
Neurology: Awake, Alert and No Motor Deficits
Skin: Warm, Good Color, Cyanosis (n), Jaundice (n) and Rash (n)
Labs/Micro/Reports
Lab Data
04/09/25 06:55
04/09/25 06:55
Microbiology
04/05/25 14:57 Pleural Fluid Body Fluid Culture - Final
No Growth After 72 Hours
04/05/25 14:57 Pleural Fluid Gram Stain - Final
04/05/25 14:56 Pleural Fluid Acid Fast Bacilli Smear - Preliminary
04/05/25 14:56 Pleural Fluid Acid Fast Bacilli Culture - Preliminary
[2025-04-09 13:00] LABS: Venous Blood Gas B.E. 19.1 mmol/L (-4 to +4); Venous Blood Gas O2 Sat % 99.3 %
--- NOTE | 2025-04-09 13:13 | W.PN.HOSP.TC ---
Today's Communication/Plan
-
see note
dispo planning
Assessment / Plan
Assessment / Plan
Acute on Chronic HFrEF
Acute on Chronic Hypoxemic Respiratory Failure secondary to the above
Hypertensive Emergency secondary to the above
-Patient required BiPAP support at admission.
-CT chest showing consolidation likely atelectasis versus pneumonia with small bilateral effusion
-Repeat echocardiogram showing ejection fraction 40 to 45% with dilated right ventricle and decreased systolic function moderate tricuspid regurgitation with estimated pulmonary artery pressure of 93 mmHg
- Patient was on IV diuretics, currently on oral Lasix., Patient home regimen of Lasix 40 mg twice daily has been cut back to 40 mg daily, will need further adjustment based on weigh/cr trend.
Bilateral pleural effusion
- Underwent left thoracentesis on 04/05 with drainage of 300 cc of clear yellow fluid
- Transudative fluid with total WBC 625 84% mononuclear cell, LDH 121
- Left lower lobe atelectatic change better after thoracentesis, further antibiotics discontinued.
Hyperkalemia
- hold Aldactone / lisinopril
- already on lasix
- f/u BMP
Acute on chronic Hypercapnic respiratory failure
-VBG in AM showing ph 7.29 Pco2 105
-Bipap started, patient took off after an hour or so, repeat pco2 down to 75
-pulmo recommended for patient to be on BiPAP at night
-will update CM for needs of BiPAP at rehab as well.
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
- EKG with non-specific ST-T changes. Initial troponin = 0.043.
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
- Cardiology evaluated and help appreciated.
- Continue CV med regimen including ASA, statin, etc.
COPD
Severe pulmonary hypertension
- Maintained on nebulizer therapy
- Pulmonology evaluated and low concern of COPD flareup, IV steroids has been discontinued
- Patient to follow-up with pulmonology clinic on outpatient basis.
Bigeminy
- Noted on telemetry. Monitor
Left upper extremity swelling
- Ultrasound negative for DVT
Essential hypertension
- maintain on coreg. Hold lisinopril/aldactone.
Hyperlipidemia
Tobacco use with abuse
- Cessation advised
- Continue with nicotine patch
BPH
- Continue tamsulosin. Bladder scan protocol.
DVT Prophylaxis: Lovenox
Code Status: Full
04/07 Overall prognosis guarded in regards of severe pulmonary hypertension, patient have poor activity/exertion tolerance and may not able to live independent. Drs. Campa/Jacob had discussed that patient may end up requiring further help if
wants to remain independent. Patient will contemplate palliative care. Wants to go to SNF first. CM notified.
Remains at high risk of worsening combined hypoxic/hypercapnic respiratory failure and related complication
Anticipated Discharge: 24 - 48 hours
Subjective/Interval History
-
Date of Service: April 09, 2025
denies of having sob/chest discomfort/pain
afebrile in the night
no other complains
Objective Data
-
Labs:
Laboratory Results
04/09/25
06:55
WBC 10.5
Hgb 13.5
Hct 43.9
Plt Count 129 L D
Sodium 137
Potassium 5.9 H D
Chloride 89 L
Carbon Dioxide 50 H
BUN 31 H
Creatinine 0.5 L
Glucose 102 H
Calcium 8.2 L
Vital Signs:
Vital Signs
Temp Pulse Resp BP Pulse Ox
97.6 F 66 20 114/48 94
04/09/25 11:00 04/09/25 11:00 04/09/25 11:00 04/09/25 11:00 04/09/25 11:13
I&O
04/08/25 04/09/25 04/10/25
06:59 06:59 06:59
Intake Total 930 / 930 778 / 778 300 / 300
Output Total 1100 / 1100 1000 / 1000 775 / 775
Balance -170 / -170 -222 / -222 -475 / -475
Review of Systems
-
Respiratory: Reports No Symptoms
Cardiac: Reports No Symptoms
Abdomen/GI: Reports No Symptoms
Physical Exam
-
General: Appears Chronically Ill and Obese
HEENT: Oxygen (5L NC)
Respiratory: Rhonchi; Negative Wheezes
Cardiac: Regular Rhythm and S1/S2; Negative Murmur
Skin: Dry (Bilateral leg skin)
Neuro: Awake, Alert, Oriented and AO x 3
Hematologic / Lymphatic: No Lymphadenopathy
Psych: Calm
--- NOTE | 2025-04-09 14:18 | CM ---
CM reviewed chart, reviewed with Hospitalist.
Patient will require BiPAP at night at SNF- can be set up at SNF.
At this time only accepting facility [facility]- will need insurance auth when stable for d/c- update to liaison that patient will need BiPAP.
Palliative care consulted.
CM will continue to follow for all d/c planning needs.
Plan; SNF when stable, will require BiPAP at [facility], [facility] able to offer bed
[2025-04-09] MEDS: LOVENOX 40 MG SC (17:20)
[2025-04-09] MEDS: FLOMAX 0.4 MG PO (20:31)
[2025-04-10] VITALS (7 sets, daily range): BP systolic 109–134; BP diastolic 55–66; PULSE 2; BMI 16.3
[2025-04-10 01:39] LABS: Venous Blood Gas B.E. 16.0 mmol/L (-4 to +4); Venous Blood Gas O2 Sat % 98.3 %
[2025-04-10] MEDS: MUCINEX 1200 MG PO ×2 (08:09→20:16)
[2025-04-10] MEDS: MIRALAX 17 GRAMS PO (08:09)
[2025-04-10] MEDS: LOW STRENGTH ASPIRIN 81 MG PO (08:10)
[2025-04-10] MEDS: LASIX 40 MG PO (08:10)
[2025-04-10] MEDS: HYDROPHOR 1 APPLIC TOPICAL (08:12)
[2025-04-10] MEDS: COREG PO (08:13)
[2025-04-10 11:31] LABS: Venous Blood Gas B.E. 15.8 mmol/L (-4 to +4); Venous Blood Gas O2 Sat % 70.7 %
[2025-04-10 11:37] LABS: Hematocrit 43.4 % (39.0-52.0); Hemoglobin 13.3 g/dL (13.0-18.0); Mean Corp Hgb Conc. 30.6 g/dL (33.0-37.0); Mean Corpuscular Volume 98.0 fL (80.0-94.0); Platelet Count 155 10^3/uL (130-400); Red Cell Dist. Width 15.0 % (11.5-14.5)
[2025-04-10 11:41] LABS: Blood Urea Nitrogen 30 mg/dl (9-20); Calcium 8.2 mg/dl (8.4-10.2); Chloride 88 mmol/L (98-107); Estimated Creatinine Clearance 89 ml/min; Glucose 151 mg/dl (70-99); Potassium 5.1 mmol/L (3.5-5.1); Sodium 135 mmol/L (135-145); eGFR > 60.00
--- NOTE | 2025-04-10 12:52 | W.PN.HOSP.TC ---
Today's Communication/Plan
-
see note
Assessment / Plan
Assessment / Plan
Acute on Chronic HFrEF
Acute on Chronic Hypoxemic Respiratory Failure secondary to the above
Hypertensive Emergency secondary to the above
-Patient required BiPAP support at admission.
-CT chest showing consolidation likely atelectasis versus pneumonia with small bilateral effusion
-Repeat echocardiogram showing ejection fraction 40 to 45% with dilated right ventricle and decreased systolic function moderate tricuspid regurgitation with estimated pulmonary artery pressure of 93 mmHg
-Patient was on IV diuretics, currently on oral Lasix., Patient home regimen of Lasix 40 mg twice daily has been cut back to 40 mg daily, will need further adjustment based on weigh/cr trend.
Bilateral pleural effusion
- Underwent left thoracentesis on 04/05 with drainage of 300 cc of clear yellow fluid
- Transudative fluid with total WBC 625 84% mononuclear cell, LDH 121
- Left lower lobe atelectatic change better after thoracentesis, further antibiotics discontinued.
Hyperkalemia - Improved
- hold Aldactone / lisinopril one more day
- already on lasix
- f/u morning BMP
Acute on chronic Hypercapnic respiratory failure
- Patient largely intolerant to BiPAP
- Somnolent in the morning with VBG showing pCO2 of 108 and pH of 7.26
- Repeat trial of BiPAP ordered
- Discussed with pulmonary for recommendation to help with Bipap mask issues
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
- EKG with non-specific ST-T changes. Initial troponin = 0.043.
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
- Cardiology evaluated and help appreciated.
- Continue CV med regimen including ASA, statin, etc.
COPD
Severe pulmonary hypertension
- Maintained on nebulizer therapy
- Pulmonology evaluated and low concern of COPD flareup, IV steroids has been discontinued
- Patient to follow-up with pulmonology clinic on outpatient basis.
Bigeminy
- Noted on telemetry. Monitor
Left upper extremity swelling
- Ultrasound negative for DVT
Essential hypertension
- maintain on coreg. Hold lisinopril/aldactone.
Hyperlipidemia
Tobacco use with abuse
- Cessation advised
- Continue with nicotine patch
BPH
- Continue tamsulosin. Bladder scan protocol.
DVT Prophylaxis: Lovenox
Code Status: Full
04/07 Overall prognosis guarded in regards of severe pulmonary hypertension, patient have poor activity/exertion tolerance and may not able to live independent. Drs. Campa/Jacob had discussed that patient may end up requiring further help if
wants to remain independent. Patient will contemplate palliative care. Wants to go to SNF first. CM notified.
Remains at high risk of worsening combined hypoxic/hypercapnic respiratory failure and related complication
Anticipated Discharge: > 48 hours
Subjective/Interval History
-
Date of Service: April 10, 2025
Patient somnolent and falling asleep while talking in the morning
Patient not able to tolerate BiPAP completely in the night
not voicing any complaints of shortness of breath/cough
Objective Data
-
Labs:
Laboratory Results
04/10/25
11:16
WBC 9.0
Hgb 13.3
Hct 43.4
Plt Count 155 D
Sodium 135
Potassium 5.1
Chloride 88 L
Carbon Dioxide Pending
BUN 30 H
Creatinine 0.6 L
Glucose 151 H
Calcium 8.2 L
Vital Signs:
Vital Signs
Temp Pulse Resp BP Pulse Ox
98.4 F 66 20 125/55 93
04/10/25 11:00 04/10/25 11:00 04/10/25 11:00 04/10/25 11:00 04/10/25 11:00
I&O
04/09/25 04/10/25 04/11/25
06:59 06:59 06:59
Intake Total 778 / 778 660 / 660
Output Total 1000 / 1000 2224 / 2224
Balance -222 / -222 -1565 / -156
Review of Systems
-
Respiratory: Denies Cough or Trouble Breathing
Cardiac: Reports No Symptoms
Abdomen/GI: Reports No Symptoms
Physical Exam
-
General: Appears Chronically Ill and Obese
HEENT: Oxygen (5L NC)
Respiratory: Rhonchi; Negative Wheezes
Cardiac: Regular Rhythm and S1/S2; Negative Murmur
Skin: Dry (Bilateral leg skin)
Neuro: Awake, Alert, Oriented and AO x 3
Hematologic / Lymphatic: No Lymphadenopathy
Psych: Calm
[2025-04-10 14:13] LABS: Carbon Dioxide 44 mmol/L (22-30)
--- NOTE | 2025-04-10 14:20 | PTCARENOTE ---
pt not tolerating bipap and request to have it removed. pt placed on 4L midflow cannula, respiratory therapist made aware. MD sen made aware; no new orders; acknowledged update. no respiratory distress noted at this time. plan of care
continues to follow.
--- NOTE | 2025-04-10 15:51 | W.PN.PUL3 ---
Today's Communication / Plan
-
- Continue BiPAP 12 x 5 nightly and as needed during daytime
- Trend VBG
- Goals of care discussion, palliative care consulted
Assessment
-
79-year-old man smoker with history of heart failure with reduced ejection fraction ejection fraction approximately 40%, COPD, ongoing smoking reports progressive fatigue and weakness. Unable to get of his couch for the last 2 days. He does report
chronic progressive shortness of breath over several months to years.
We were consulted on 04/02/2027 for an abnormal chest imaging.
#1. Acute on chronic hypoxic respiratory failure.
- Suspect primarily related to volume overload, pleural effusion, with underlying COPD and severe pulmonary hypertension.
- Continue to optimize volume status, wean oxygen as tolerated, keep SpO2 greater than 90%
- Dyspnea persists, suspect a significant contribution from underlying severe pulmonary hypertension. F/u CXR unchanged.
#2. Acute on chronic heart failure with reduced ejection fraction. LVEF 40 to 45% (nonischemic cardiomyopathy)
- Cardiology service on case, agree with diuresis
- IV Lasix now transitioned to oral, twice daily dosing
- Left heart cath in 2023, no significant coronary artery disease noted
- 04/08, Serum bicarbonate elevated to 50, serum chloride down to 85, suspect worsening contraction metabolic alkalosis exacerbated by concomitant chronic hypercapnia. Decreased Lasix to once a day, replaced normal saline at 50 mL/h for total of
250 mL. Serum Cl up to 89 on 04/09. Depending upon clinical course, will consider Diamox.
#3. Severe pulmonary hypertension.
- Estimated pulmonary artery systolic pressure of 93 noted on recent echocardiogram with moderate TR and severely dilated RV with decreased systolic function.
- Primarily group II PH due to underlying heart failure as well as possibly component of group III with underlying COPD and hypoxia
- Right heart cath in 01/2024, mean PA pressure 35, pulmonary capillary wedge pressure of 24 with PVR of 2.4.
- Prognosis is poor with severe PH, cachexia and chronic respiratory failure. Functional status is poor. Had long discussion with patient. We briefly talked about Code status, I went over full code vs DNR/DNI. We discussed with high risk of
mortality and morbidity with severe Pulmonary HTN.
#4. Left lower lobe opacity, compressive atelectasis due to pleural effusion
- Pneumonia versus compressive atelectasis due to pleural effusion
- IR guided thoracentesis performed 04/05, postprocedure x-ray with improving left lower lobe opacity suggestive of improving atelectasis
- Procalcitonin less than 0.05 on 04/01.
- Discontinued antibiotics
#5. Pleural effusions, L>R
- Trace on the right side and moderate on the left side noted
- S/p IR guided thoracentesis 04/05. Preliminary studies suggestive of transudate. Isolated elevated LDH ratio noted, suspect effect from use of diuresis
- Suspect this is related to underlying congestive heart failure as well as pulmonary hypertension
- Continue diuresis as tolerated
- Discontinued antibiotics
- Pleural fluid cultures and cytology negative
- Needs follow-up imaging as outpatient, if persistent volume loss noted in the left lower lobe, may need bronchoscopy to evaluate for any endobronchial lesions.
#6. h/o COPD with Emphysema
- No wheezing on exam, currently does not appear to be suggestive of COPD exacerbation
- Continue nebulized DuoNeb as well as budesonide
- Discontinued IV steroids, continue diuresis as tolerated
- Resume outpatient follow-up with Dr. Peralta post discharge at [facility] pulmonary clinic. At baseline patient is oxygen dependent and has been on Breo
- Reportedly patient did not tolerate Trelegy or Breztri
#7. Acute on chronic hypercapnic respiratory failure.
- Patient has baseline chronic compensated hypercapnic respiratory failure due to end-stage COPD.
- 04/09, VBG 7.29/103 suggestive of worsening CO2 retention. BiPAP was initiated. Patient otherwise was awake, alert, oriented x 3. Patient has been intolerant to BiPAP, wearing it some times
- In view of chronic hypercapnia and advanced COPD, persistent respiratory failure, initiated nightly BiPAP therapy, can use during daytime on an as needed basis as well.
Other medical diagnoses:
Tobacco abuse
Hypertension
Hyperlipidemia
BPH
Elevated troponin
DVT prophylaxis-on Lovenox
Nutrition
Early mobilization/PT/OT
d/w primary team. Palliative care appropriate as long-term prognosis is poor.
Outpatient follow-up with Dr. Peralta after discharge
Last time seen was January 2025
Missed appointment 03/09/2025
Had an appointment 04/02/2025 but in the hospital
Short-term follow-up after discharge
Patient seen and evaluated on 04/10/2025 Total time spent on this consultation/encounter _39___ minutes which includes review of history, physical exam, medications, laboratory data, personal review of imaging, extensive review of outpatient
records, discussion with care team and respiratory therapy.
Subjective Data
-
Date of Service:
Date of Service: April 10, 2025
Chief Complaint: Pulmonary Follow Up and Dyspnea Follow Up
Subjective:
Patient seen today (late note entry). Currently on 4 L/min nasal cannula. Has been intolerant to BiPAP but says that he will try to wear tonight.
Review of Systems
General: Other (Negative unless mentioned above)
Objective Data
Data Reviewed
Vital Signs / I&O / Oxygen:
Vital Signs
Temp Pulse Resp BP Pulse Ox
97.5 F 70 16 103/49 98
04/10/25 07:00 04/10/25 08:13 04/10/25 07:00 04/10/25 08:13 04/10/25 07:00
Intake and Output
04/09/25 04/10/25 04/11/25
06:59 06:59 06:59
Intake Total 778 / 778 660 / 660
Output Total 1000 / 1000 2225 / 2225
Balance -222 / -222 -1565 / -1565
SaO2 98
Nasal Cannula flow liters per 4
minute
Physical Exam
General: Respiratory Distress (n) and Comfortable
HEENT: Normocephalic, Anicteric and Moist Mucous Membranes
Cardiovascular: Regular Rhythm and Peripheral Edema (Trace edema)
Respiratory: Wheeze (n), Crackles (Isolated left lower lobe crackles.), Rhonchi (n), Non-Labored Respirations, Accessory Resp Muscle Use (n) and Stridor (n)
GI: Soft, Non Distended and Non Tender
Neurology: Awake, Alert and No Motor Deficits
Skin: Warm, Good Color, Cyanosis (n), Jaundice (n) and Rash (n)
Labs/Micro/Reports
Lab Data
04/09/25 06:55
04/09/25 06:55
Microbiology
04/05/25 14:57 Pleural Fluid Body Fluid Culture - Final
No Growth After 72 Hours
04/05/25 14:57 Pleural Fluid Gram Stain - Final
04/05/25 14:56 Pleural Fluid Acid Fast Bacilli Smear - Preliminary
04/05/25 14:56 Pleural Fluid Acid Fast Bacilli Culture - Preliminary
[2025-04-10] MEDS: LOVENOX 40 MG SC (17:03)
[2025-04-10] MEDS: COREG 3.125 MG PO (20:16)
[2025-04-10] MEDS: HYDROPHOR TOPICAL (20:17)
[2025-04-10] MEDS: FLOMAX 0.4 MG PO (22:03)
[2025-04-11] VITALS (8 sets, daily range): BP systolic 105–135; BP diastolic 44–64; PULSE 2–68; BMI 16.3
--- NOTE | 2025-04-11 01:00 | PTCARENOTE ---
Addendum entered by Vivian Bryant 04/11/25 05:16:
Pt removed bipap, refusing at this time. Education provided, continues refusal. Kaden BUNDLER aware.
Addendum entered by Vivian Bryant 04/11/25 04:26:
Pt with increased crackles, more drowsy, agreeable to Bipap at this time. pulse ox 96% 4 L. Kaden BUNDLER aware.
Original Note:
Pt refusing bipap, kaden BUNDLER aware.
[2025-04-11 05:22] LABS: Venous Blood Gas B.E. 14.5 mmol/L (-4 to +4); Venous Blood Gas O2 Sat % 100.0 %
[2025-04-11 05:46] LABS: Hematocrit 41.5 % (39.0-52.0); Hemoglobin 12.9 g/dL (13.0-18.0); Mean Corp Hgb Conc. 31.1 g/dL (33.0-37.0); Mean Corpuscular Volume 98.3 fL (80.0-94.0); Platelet Count 183 10^3/uL (130-400); Red Cell Dist. Width 14.9 % (11.5-14.5)
[2025-04-11 05:49] LABS: Blood Urea Nitrogen 30 mg/dl (9-20); Calcium 8.5 mg/dl (8.4-10.2); Chloride 90 mmol/L (98-107); Estimated Creatinine Clearance 89 ml/min; Glucose 100 mg/dl (70-99); Magnesium 2.3 mg/dl (1.6-2.3); Potassium 6.0 mmol/L (3.5-5.1); Sodium 132 mmol/L (135-145); eGFR > 60.00
[2025-04-11] MEDS: LASIX 40 MG PO (06:02)
[2025-04-11 06:46] LABS: Carbon Dioxide 43 mmol/L (22-30)
[2025-04-11] MEDS: CALCIUM GLUCONATE 100 IV (08:37)
[2025-04-11] MEDS: MIRALAX 17 GRAMS PO (08:47)
[2025-04-11] MEDS: TYLENOL 650 MG PO ×2 (08:47→19:49)
[2025-04-11] MEDS: LOW STRENGTH ASPIRIN 81 MG PO (08:48)
[2025-04-11] MEDS: HYDROPHOR 1 APPLIC TOPICAL (08:48)
[2025-04-11] MEDS: MUCINEX 1200 MG PO ×2 (08:48→19:45)
[2025-04-11] MEDS: COREG 3.125 MG PO ×2 (08:48→19:45)
--- NOTE | 2025-04-11 12:00 | CM ---
CM following for discharge planning. SNF recommended; [facility] offered a bed when patient is medically stable. Patient will require BiPAP at night at SNF- can be set up at SNF; awaiting pulmonary recommendation for BiPAP mask that patient can tolerate.
SNF authorization needed prior to discharge; will need insurance auth with [place] [address] when stable for d/c. [facility] liaison aware that patient will need BiPAP.
Palliative care consulted; awaiting consult completion.
CM will continue to follow for all d/c planning needs.
Plan: D/c to SNF when stable, will require BiPAP at [facility], [facility] able to offer bed
--- NOTE | 2025-04-11 12:30 | W.PN.HOSP.TC ---
Today's Communication/Plan
-
see note
Assessment / Plan
Assessment / Plan
Acute on Chronic HFrEF
Acute on Chronic Hypoxemic Respiratory Failure secondary to the above
Hypertensive Emergency secondary to the above
-Patient required BiPAP support at admission.
-CT chest showing consolidation likely atelectasis versus pneumonia with small bilateral effusion
-Repeat echocardiogram showing ejection fraction 40 to 45% with dilated right ventricle and decreased systolic function moderate tricuspid regurgitation with estimated pulmonary artery pressure of 93 mmHg
-Patient was on IV diuretics, currently on oral Lasix., Patient home regimen of Lasix 40 mg twice daily has been cut back to 40 mg daily, will need further adjustment based on weigh/cr trend.
Bilateral pleural effusion
- Underwent left thoracentesis on 04/05 with drainage of 300 cc of clear yellow fluid
- Transudative fluid with total WBC 625 84% mononuclear cell, LDH 121
- Left lower lobe atelectatic change better after thoracentesis, further antibiotics discontinued.
Hyperkalemia
- Continue holding Aldactone/lisinopril
- Patient on low potassium diet although patient was having banana with each meal yesterday
- Already got oral Lasix
- Ordered calcium gluconate 1 dose and Lokelma
- f/u BMP in AM
Acute on chronic Hypercapnic respiratory failure
- Patient largely intolerant to BiPAP
- Frequent PVCs this admission has shown fluctuating pCO2 levels
- Pulmonology yesterday and was tried on nasal mask which patient not able to tolerate either
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
- EKG with non-specific ST-T changes. Initial troponin = 0.043.
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
- Cardiology evaluated and help appreciated.
- Continue CV med regimen including ASA, statin, etc.
COPD
Severe pulmonary hypertension
- Maintained on nebulizer therapy
- Pulmonology evaluated and low concern of COPD flareup, IV steroids has been discontinued
- Patient to follow-up with pulmonology clinic on outpatient basis.
Bigeminy
- Noted on telemetry. Monitor
Left upper extremity swelling
- Ultrasound negative for DVT
Essential hypertension
- maintain on coreg. Hold lisinopril/aldactone.
Hyperlipidemia
Tobacco use with abuse
- Cessation advised
- Continue with nicotine patch
BPH
- Continue tamsulosin. Bladder scan protocol.
DVT Prophylaxis: Lovenox
Code Status: Full
Remains at high risk of worsening combined hypoxic/hypercapnic respiratory failure and related complication.
Repeat discussion held with patient regarding importance of compliance to BiPAP, patient understands and 'trying his best' to remain on BiPAP. Prognosis is guarded to poor although patient not ready for transition to palliative/hospice care.
Anticipated Discharge: 24 - 48 hours
Subjective/Interval History
-
Date of Service: April 11, 2025
Continues to remain somewhat somnolent although waking up and coherent with communication
Subjectively feeling same as yesterday
Oxygen requirement remains stable
Patient tried nasal mask overnight without much success and was able to tolerate for 1 hour only
Objective Data
-
Labs:
Laboratory Results
04/11/25
05:14
WBC 7.8
Hgb 12.9 L
Hct 41.5
Plt Count 183
Sodium 132 L
Potassium 6.0 H
Chloride 90 L
Carbon Dioxide 43 H
BUN 30 H
Creatinine 0.5 L
Glucose 100 H
Calcium 8.5
Vital Signs:
Vital Signs
Temp Pulse Resp BP Pulse Ox
97.8 F 67 20 105/51 97
04/11/25 11:50 04/11/25 11:50 04/11/25 11:50 04/11/25 11:50 04/11/25 11:50
I&O
04/10/25 04/11/25 04/12/25
06:59 06:59 06:59
Intake Total 660 / 660 1160 / 1160
Output Total 2225 / 2225 735 / 735 600 / 600
Balance -1565 / -1565 425 / 425 -600 / -600
Review of Systems
-
Respiratory: Reports No Symptoms
Cardiac: Reports No Symptoms
Abdomen/GI: Reports No Symptoms
Physical Exam
-
General: Appears Chronically Ill
HEENT: Oxygen (4L NC)
Respiratory: Negative Wheezes
Cardiac: Regular Rhythm and S1/S2; Negative Murmur
Skin: Dry (Bilateral leg skin)
Neuro: Awake, Alert, Oriented and AO x 3
Hematologic / Lymphatic: No Lymphadenopathy
Psych: Calm
[2025-04-11] MEDS: LOKELMA 10 GRAM PO ×2 (14:13→17:20)
--- NOTE | 2025-04-11 15:36 | W.PN.PUL3 ---
Today's Communication / Plan
-
- Continue BiPAP 12/5 nightly and as needed during daytime
- Trend blood gas
- Hyperkalemia management per hospitalist team; temporizing agents to be given as needed for [K] levels >5.9
- PO lasix
- Continue scheduled DuoNebs; will hold off on budesonide as his absolute eosinophils are usually 100 or less
- Goals of care discussion ongoing - hospice appropriate. Palliative care consulted
- Pulmonary service will continue to follow along
Assessment
-
79-year-old man smoker with history of heart failure with reduced ejection fraction ejection fraction approximately 40%, COPD, ongoing smoking reports progressive fatigue and weakness. Unable to get of his couch for the last 2 days. He does report
chronic progressive shortness of breath over several months to years.
We were consulted on 04/02/2027 for an abnormal chest imaging.
#1. Acute on chronic hypoxic respiratory failure.
- Suspect primarily related to volume overload, pleural effusion, with underlying COPD/centrilobular emphysema and severe pulmonary hypertension.
- Continue to optimize volume status, wean oxygen as tolerated, keep SpO2 greater than 90%
- Dyspnea persists, suspect a significant contribution from underlying severe pulmonary hypertension. F/u CXR unchanged.
#2. Acute on chronic heart failure with reduced ejection fraction. LVEF 40 to 45% (nonischemic cardiomyopathy)
- Cardiology service on case, agreed with diuresis
- IV Lasix transitioned to oral, initially twice daily dosing
- Left heart cath in 2023, no significant coronary artery disease noted
- 04/08, Serum bicarbonate elevated to 50, serum chloride down to 85, suspect worsening contraction metabolic alkalosis exacerbated by concomitant chronic hypercapnia. Decreased Lasix to once a day, replaced normal saline at 50 mL/h for total of
250 mL (now off IVF). Serum Cl up to 89 on 04/09. Depending upon clinical course, will consider Diamox - -> however for now will NOT give diamox given he has unstable hypercapnia
#3. Severe pulmonary hypertension.
- Estimated pulmonary artery systolic pressure of 93 noted on recent echocardiogram with moderate TR and severely dilated RV with decreased systolic function.
- Primarily group II PH due to underlying heart failure as well as group III with underlying COPD and hypoxia
- Right heart cath in 01/2024, mean PA pressure 35, pulmonary capillary wedge pressure of 24 with PVR of 2.4.
- Prognosis is poor with severe PH, cachexia and chronic respiratory failure. Functional status is poor. Dr. James had long discussion with patient. He briefly talked about Code status, and code status was reviewed in details. Dr. James discussed
with high risk of mortality and morbidity with severe Pulmonary HTN.
#4. Left lower lobe opacity, compressive atelectasis due to pleural effusion
- Pneumonia versus compressive atelectasis due to pleural effusion
- IR guided thoracentesis performed 04/05, postprocedure x-ray with improving left lower lobe opacity suggestive of improving atelectasis
- Procalcitonin less than 0.05 on 04/01.
- Discontinued antibiotics
#5. Pleural effusions, L>R
- Trace on the right side and moderate on the left side noted
- S/p IR guided thoracentesis 04/05. Preliminary studies suggestive of transudate. Isolated elevated LDH ratio noted, suspect effect from use of diuresis
- Suspect this is related to underlying congestive heart failure as well as pulmonary hypertension
- Continue diuresis as tolerated
- Discontinued antibiotics
- Pleural fluid cultures and cytology negative
- Needs follow-up imaging as outpatient, if persistent volume loss noted in the left lower lobe, may need bronchoscopy to evaluate for any endobronchial lesions.
#6. h/o COPD with Emphysema
- No wheezing on exam, currently does not appear to be suggestive of COPD exacerbation
- Continue scheduled DuoNebs; will hold off on budesonide as his absolute eosinophils are usually 100 or less
- Discontinued IV steroids, continue diuresis as tolerated
- Resume outpatient follow-up with Dr. Peralta post discharge at [facility] pulmonary clinic. At baseline patient is oxygen dependent and has been on Breo
- Reportedly patient did not tolerate Trelegy or Breztri
#7. Acute on chronic hypercapnic respiratory failure.
- Patient has baseline chronic compensated hypercapnic respiratory failure due to end-stage COPD.
- 04/09, VBG 7.29/103 suggestive of worsening CO2 retention. BiPAP was initiated. Patient otherwise was awake, alert, oriented x 3. Patient has been intolerant to BiPAP, wearing it some times and is aware of the risks of being non-compliant
- In view of chronic hypercapnia and advanced COPD, persistent respiratory failure, initiated nightly BiPAP therapy, can use during daytime on an as needed basis as well.
- Trend blood gas to assure pH and pCO2 remain stable
Other medical diagnoses:
Tobacco abuse
Hypertension
Hyperlipidemia
BPH
Elevated troponin
DVT prophylaxis-on Lovenox
Nutrition
Early mobilization/PT/OT
d/w primary team. Palliative care appropriate as long-term prognosis is poor.
Outpatient follow-up with Dr. Peralta after discharge
Last time seen was January 2025
Missed appointment 03/09/2025
Had an appointment 04/02/2025 but in the hospital
Short-term follow-up after discharge
Total time spent today was 41 minute for this encounter. Time includes reviewing laboratory tests/imaging results, reviewing pertinent medical records, obtaining and reviewing medical history, performing an appropriate physical exam, ordering
medications, tests and procedures. Time also includes documentation of this encounter, coordinating patient care and communicating with other healthcare professionals. Total time does not include separately billed tests or procedures performed on
this date of service.
Subjective Data
-
Date of Service:
Date of Service: April 11, 2025
Chief Complaint: Pulmonary Follow Up and Dyspnea Follow Up
Subjective:
Patient was seen and evaluated this morning (late note entry). Afebrile overnight. Could not wear the BiPAP overnight due to intolerance; Respiratory did end up placing the BiPAP onto him at around 430AM, although the pt did not want to wear it.
VBG this AM shows well compensated chronic hypercapnia with pH 7.38, pCO2: 73.
Review of Systems
General: Other (Negative unless mentioned above)
Objective Data
Data Reviewed
Vital Signs / I&O / Oxygen:
Vital Signs
Temp Pulse Resp BP Pulse Ox
97.7 F 62 20 111/61 97
04/11/25 08:04 04/11/25 08:04 04/11/25 08:04 04/11/25 08:04 04/11/25 08:04
Intake and Output
04/10/25 04/11/25 04/12/25
06:59 06:59 06:59
Intake Total 660 / 660 1160 / 1160
Output Total 2225 / 2225 735 / 735 400 / 400
Balance -1565 / -1565 425 / 425 -400 / -400
SaO2 97
Nasal Cannula flow liters per 4
minute
Physical Exam
General: Respiratory Distress (n) and Comfortable
HEENT: Normocephalic, Anicteric and Moist Mucous Membranes
Cardiovascular: Regular Rhythm and Peripheral Edema (Trace edema)
Respiratory: Wheeze (n), Crackles (Isolated left lower lobe crackles.), Rhonchi (n), Non-Labored Respirations, Accessory Resp Muscle Use (n) and Stridor (n)
GI: Soft, Non Distended and Non Tender
Neurology: Awake, Alert and No Motor Deficits
Skin: Warm, Good Color, Cyanosis (n), Jaundice (n) and Rash (n)
Labs/Micro/Reports
Lab Data
04/11/25 05:14
04/11/25 05:14
Microbiology
04/05/25 14:57 Pleural Fluid Body Fluid Culture - Final
No Growth After 72 Hours
04/05/25 14:57 Pleural Fluid Gram Stain - Final
[2025-04-11] MEDS: LOVENOX 40 MG SC (17:20)
[2025-04-11] MEDS: HYDROPHOR TOPICAL (19:45)
[2025-04-11] MEDS: FLOMAX 0.4 MG PO (21:30)
[2025-04-12] VITALS (7 sets, daily range): BP systolic 91–128; BP diastolic 47–60; PULSE 68; O2SAT 94; BMI 15.8
[2025-04-12] MEDS: LOKELMA 10 GRAM PO (05:27)
[2025-04-12] MEDS: DUONEB 3 ML INH ×3 (07:31→19:08)
[2025-04-12 07:58] LABS: Hematocrit 41.3 % (39.0-52.0); Hemoglobin 12.8 g/dL (13.0-18.0); Mean Corp Hgb Conc. 31.0 g/dL (33.0-37.0); Mean Corpuscular Volume 97.9 fL (80.0-94.0); Platelet Count 185 10^3/uL (130-400); Red Cell Dist. Width 15.1 % (11.5-14.5)
[2025-04-12] MEDS: HYDROPHOR 1 APPLIC TOPICAL (08:34)
[2025-04-12] MEDS: MIRALAX PO (08:34)
[2025-04-12] MEDS: LOW STRENGTH ASPIRIN 81 MG PO (08:35)
[2025-04-12] MEDS: MUCINEX 1200 MG PO ×2 (08:35→20:34)
[2025-04-12] MEDS: COREG 3.125 MG PO ×2 (09:01→20:34)
--- NOTE | 2025-04-12 09:37 | W.PN.PUL.V3 ---
Today's Communication / Plan
-
Wean oxygen
BiPAP as tolerated
Nebulizers
Diuresis as tolerated
Treat hyperkalemia
Assessment
-
79-year-old man smoker with history of heart failure with reduced ejection fraction ejection fraction approximately 40%, COPD, ongoing smoking reports progressive fatigue and weakness. Unable to get of his couch for the last 2 days. He does report
chronic progressive shortness of breath over several months to years.
We were consulted on 04/02/2027 for an abnormal chest imaging.
Heart failure with reduced EF
COPD with mild acute exacerbation
Chronic hypercapnic respiratory failure
Pulm hypertension
Left lower lobe opacification
Left greater than right pleural effusion
Conditions prior to admission:
Hypertension
Hyperlipidemia
BPH
Tobacco abuse
Plan
Respiratory decompensation related to underlying COPD/centrilobular emphysema with severe pulm hypertension and volume overload
Supplemental oxygen as needed
Aspiration precautions
DuoNebs continue-reportedly patient did not tolerate Trelegy or Breztri very well in the outpatient setting-Dr. Peralta
Mucinex
Follow-up pleural effusion-left greater than right
Status postthoracentesis 04/05/2025-transudate, cytology negative
Observe off antibiotics
Observe off steroids
BiPAP as needed with chronic hypercapnia
Follow VBG-04/11/2025--73/148/7.38
Diuresis as tolerated
Monitor renal function, electrolytes, intake/output, lower extremity edema and weight
Replace electrolytes as needed
Left heart cardiac catheterization in 2023 without significant coronary artery disease
Cardiology following-correspondence reviewed
Right heart cardiac catheterization 01/2024-PA mean 35, capillary wedge pressure 24 and PVR 2.4
Smoking cessation counseling
Nicotine patch
DVT prophylaxis
Nutrition
Early mobilization
Prognosis is poor with severe PH, cachexia and chronic respiratory failure. Functional status is poor. Dr. James had long discussion with patient. He briefly talked about Code status, and code status was reviewed in details. Dr. James discussed
with high risk of mortality and morbidity with severe Pulmonary HTN.
Palliative care appropriate his long-term prognosis is poor-patient not ready for transition to palliative or hospice care
Outpatient pulmonary follow-up with Dr. Peralta-last seen January 2025, missed appointment 03/09/2025, had appointment 04/02/2025 but was in the hospital
As left lower lobe volume loss-follow radiographically-if persistent may need endobronchial evaluation
Subjective Data
-
Date of Service:
Date of Service: April 12, 2025
Chief Complaint: Pulmonary Follow Up and Dyspnea Follow Up
Subjective:
Feels a little better, states that he did not use BiPAP last night, no chest pain, chest congestion, productive cough or abdominal pain
Review of Systems
General: Other ( per HPI)
Objective Data
Data Reviewed
Vital Signs / I&O:
Vital Signs
Temp Pulse Resp BP Pulse Ox
97.8 F 61 18 116/51 99
04/12/25 07:30 04/12/25 09:01 04/12/25 07:33 04/12/25 09:01 04/12/25 07:33
Intake and Output
04/11/25 04/12/25 04/13/25
06:59 06:59 06:59
Intake Total 1160 / 1160 600 / 600
Output Total 735 / 735 1300 / 1300
Balance 425 / 425 -700 / -700
SaO2: 99
Nasal Cannula flow liters per minute: 4
Physical Exam
General: Respiratory Distress (n) and Comfortable
HEENT: Normocephalic, Anicteric and Moist Mucous Membranes
Cardiovascular: Regular Rhythm and Peripheral Edema (Trace edema)
Respiratory: Wheeze (n), Crackles (Isolated left lower lobe crackles.), Rhonchi (n), Non-Labored Respirations, Accessory Resp Muscle Use (n) and Stridor (n)
GI: Soft, Non Distended and Non Tender
Neurology: Awake, Alert and No Motor Deficits
Skin: Warm, Good Color, Cyanosis (n), Jaundice (n) and Rash (n)
Labs/Micro/Reports
Lab Data
04/12/25 06:54
[2025-04-12 10:09] LABS: Blood Urea Nitrogen 39 mg/dl (9-20); Calcium 8.0 mg/dl (8.4-10.2); Chloride 87 mmol/L (98-107); Estimated Creatinine Clearance 86 ml/min; Glucose 181 mg/dl (70-99); Potassium 4.6 mmol/L (3.5-5.1); Sodium 135 mmol/L (135-145); eGFR > 60.00
[2025-04-12 10:38] LABS: Carbon Dioxide 41 mmol/L (22-30)
--- NOTE | 2025-04-12 10:52 | CM ---
PT OT continue to indicate SN[place]
As per care [facility] can accept.
[facility] accept patient - check aquilinity . Update sfax to [facility] .
Bipap setting faxed to [facility]
Oxygen 4 liters Pox 99%.Has home oxygen.
[facility]
report [phone]
fax [phone]
PLAN To [facility] check on bed availability
[2025-04-12] MEDS: DUONEB INH (11:29)
[2025-04-12] MEDS: LASIX PO (12:30)
--- NOTE | 2025-04-12 12:34 | W.PN.HOSP.TC ---
Today's Communication/Plan
-
DC planning to SNF
Assessment / Plan
Assessment / Plan
Assessment:
Acute on Chronic HFrEF
Acute on Chronic Hypoxemic Respiratory Failure secondary to the above
Hypertensive Emergency secondary to the above
-Patient required BiPAP support at admission.
-CT chest showing consolidation likely atelectasis versus pneumonia with small bilateral effusion
-Repeat echocardiogram showing ejection fraction 40 to 45% with dilated right ventricle and decreased systolic function moderate tricuspid regurgitation with estimated pulmonary artery pressure of 93 mmHg
-Patient was on IV diuretics, currently on oral Lasix. Patient home regimen of Lasix 40 mg twice daily has been cut back to 40 mg daily, will need further adjustment based on weigh/cr trend.
Bilateral pleural effusion
- Underwent left thoracentesis on 04/05 with drainage of 300 cc of clear yellow fluid
- Transudative fluid with total WBC 625 84% mononuclear cell, LDH 121
- Left lower lobe atelectatic change better after thoracentesis, further antibiotics discontinued.
Hyperkalemia
- Continue holding Aldactone/lisinopril
- despite low K diet; was consuming bananas
- s/p Lokelma and temporization 04/11
- monitor BMP
Acute on chronic Hypercapnic respiratory failure
- Patient largely intolerant to BiPAP; stating he can only tolerate 1 hour nightly; also trialed various masks without success
- Frequent VBGs this admission has shown fluctuating pCO2 levels
- patient aware of risks and complications of intolerance/refusal of BiPAP
- Pulmonology following
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
- EKG with non-specific ST-T changes. Initial troponin = 0.043.
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
- Cardiology evaluated and help appreciated.
- Continue CV med regimen including ASA, statin, etc.
COPD
Severe pulmonary hypertension
- Maintained on nebulizer therapy
- Pulmonology evaluated and low concern of COPD flareup, IV steroids has been discontinued
- Patient to follow-up with pulmonology clinic on outpatient basis.
Bigeminy
- Noted on telemetry. Monitor
Left upper extremity swelling
- Ultrasound negative for DVT
Essential hypertension
- maintain on Coreg. Hold lisinopril/Aldactone.
Hyperlipidemia
Tobacco use with abuse
- Cessation advised
- Continue with nicotine patch
BPH
- Continue tamsulosin. Bladder scan protocol.
DVT Prophylaxis: Lovenox
Code Status: Full
Remains at high risk of worsening combined hypoxic/hypercapnic respiratory failure and related complication.
Repeat discussion held with patient regarding importance of compliance to BiPAP, patient understands and 'trying his best' to remain on BiPAP. Prognosis is guarded to poor although patient not ready for transition to palliative/hospice care.
Anticipated Discharge: 24 - 48 hours
Subjective/Interval History
-
Date of Service: April 12, 2025
resting - denies any new complaints
reports he can only tolerate 1 hour of BiPAP nightly
Objective Data
-
Labs:
Laboratory Results
04/12/25
06:54
WBC 5.5
Hgb 12.8 L
Hct 41.3
Plt Count 185
Sodium 135
Potassium 4.6
Chloride 87 L
Carbon Dioxide 41 H
BUN 39 H
Creatinine 0.5 L
Glucose 181 H
Calcium 8.0 L
Vital Signs:
Vital Signs
Temp Pulse Resp BP Pulse Ox
97.5 F 69 18 91/47 96
04/12/25 11:30 04/12/25 11:30 04/12/25 11:30 04/12/25 11:30 04/12/25 11:34
I&O
04/11/25 04/12/25 04/13/25
06:59 06:59 06:59
Intake Total 1160 / 1160 600 / 600
Output Total 735 / 735 1300 / 1300
Balance 425 / 425 -700 / -700
Physical Exam
-
General: Cachectic
HEENT: Normocephalic and Atraumatic
Respiratory: Negative Wheezes
Cardiac: Regular Rhythm and S1/S2
GI: Soft
Musculoskeletal: No Edema
Neuro: AO x 3
Psych: Calm
Data Reviewed
-
Total Time Spent with Patient (in minutes): 42
Labs: Labs Reviewed by me
[2025-04-12] MEDS: LOKELMA PO ×2 (13:22→17:36)
[2025-04-12] MEDS: LOVENOX 40 MG SC (17:42)
[2025-04-12] MEDS: TYLENOL 650 MG PO ×2 (17:45→21:51)
[2025-04-12] MEDS: FLUSH (NSS) 1 FLUSH IV (20:41)
[2025-04-12] MEDS: FLOMAX 0.4 MG PO (21:27)
[2025-04-12] MEDS: HYDROPHOR TOPICAL (21:30)
[2025-04-13 03:21] VITALS: BP 138/64
[2025-04-13 06:00] VITALS: BMI 16.1
[2025-04-13 06:37] LABS: Hematocrit 40.7 % (39.0-52.0); Hemoglobin 12.7 g/dL (13.0-18.0); Mean Corp Hgb Conc. 31.2 g/dL (33.0-37.0); Mean Corpuscular Volume 96.9 fL (80.0-94.0); Platelet Count 214 10^3/uL (130-400); Red Cell Dist. Width 14.8 % (11.5-14.5)
[2025-04-13 06:59] LABS: Blood Urea Nitrogen 37 mg/dl (9-20); Calcium 8.1 mg/dl (8.4-10.2); Chloride 88 mmol/L (98-107); Estimated Creatinine Clearance 88 ml/min; Glucose 125 mg/dl (70-99); Potassium 4.2 mmol/L (3.5-5.1); Sodium 133 mmol/L (135-145); eGFR > 60.00
[2025-04-13 07:00] VITALS: BP 119/64
[2025-04-13] MEDS: DUONEB 3 ML INH ×2 (07:19→11:26)
[2025-04-13] MEDS: MUCINEX 1200 MG PO (07:47)
[2025-04-13] MEDS: LOW STRENGTH ASPIRIN 81 MG PO (07:47)
[2025-04-13] MEDS: COREG 3.125 MG PO (07:47)
[2025-04-13] MEDS: MIRALAX 17 GRAMS PO (07:53)
[2025-04-13] MEDS: LASIX 40 MG PO (07:53)
[2025-04-13] MEDS: LOKELMA PO (09:11)
[2025-04-13] MEDS: HYDROPHOR 1 APPLIC TOPICAL (09:11)
[2025-04-13 09:33] LABS: Carbon Dioxide 40 mmol/L (22-30)
--- NOTE | 2025-04-13 09:56 | W.PN.PUL.V3 ---
Today's Communication / Plan
-
Diuresis as tolerated
Increase activity
Nebulizers
Outpatient pulmonary follow-up
Assessment
-
79-year-old man smoker with history of heart failure with reduced ejection fraction ejection fraction approximately 40%, COPD, ongoing smoking reports progressive fatigue and weakness. Unable to get of his couch for the last 2 days. He does report
chronic progressive shortness of breath over several months to years.
We were consulted on 04/02/2027 for an abnormal chest imaging.
Heart failure with reduced EF
COPD with mild acute exacerbation
Chronic hypercapnic respiratory failure
Pulm hypertension
Left lower lobe opacification
Left greater than right pleural effusion
Conditions prior to admission:
Hypertension
Hyperlipidemia
BPH
Tobacco abuse
Plan
Respiratory decompensation related to underlying COPD/centrilobular emphysema with severe pulm hypertension and volume overload
Supplemental oxygen as needed-assess discharge supplemental oxygen needs
Aspiration precautions
DuoNebs continue-reportedly patient did not tolerate Trelegy or Breztri very well in the outpatient setting-Dr. Peralta
Mucinex
Follow-up pleural effusion-left greater than right
Status postthoracentesis 04/05/2025-transudate, cytology negative
Observe off antibiotics
Observe off steroids
BiPAP as needed with chronic hypercapnia
Follow VBG-04/11/2025--73/148/7.38
Diuresis as tolerated
Monitor renal function, electrolytes, intake/output, lower extremity edema and weight
Replace electrolytes as needed
Left heart cardiac catheterization in 2023 without significant coronary artery disease
Cardiology following-correspondence reviewed
Right heart cardiac catheterization 01/2024-PA mean 35, capillary wedge pressure 24 and PVR 2.4
Smoking cessation counseling ongoing
Nicotine patch
DVT prophylaxis
Nutrition
Early mobilization
Prognosis is poor with severe PH, cachexia and chronic respiratory failure. Functional status is poor. Dr. James had long discussion with patient. He briefly talked about Code status, and code status was reviewed in details. Dr. James discussed
with high risk of mortality and morbidity with severe Pulmonary HTN.
Palliative care appropriate his long-term prognosis is poor-patient not ready for transition to palliative or hospice care
Outpatient pulmonary follow-up with Dr. Peralta-last seen January 2025, missed appointment 03/09/2025, had appointment 04/02/2025 but was in the hospital
As left lower lobe volume loss-follow radiographically-if persistent may need endobronchial evaluation
Subjective Data
-
Date of Service:
Date of Service: April 13, 2025
Chief Complaint: Pulmonary Follow Up and Dyspnea Follow Up
Subjective:
Complaining of back and buttocks pain, no complaints of shortness of breath, productive cough, abdominal pain
Review of Systems
General: Other (Per HPI)
Objective Data
Data Reviewed
Vital Signs / I&O:
Vital Signs
Temp Pulse Resp BP Pulse Ox
97.7 F 68 16 119/64 97
04/13/25 07:00 04/13/25 07:53 04/13/25 07:21 04/13/25 07:53 04/13/25 07:00
Intake and Output
04/12/25 04/13/25 04/14/25
06:59 06:59 06:59
Intake Total 600 / 600 1470 / 1470
Output Total 1300 / 1300 675 / 675
Balance -700 / -700 795 / 795
SaO2: 97
Nasal Cannula flow liters per minute: 3
Physical Exam
General: Respiratory Distress (n) and Comfortable
HEENT: Normocephalic, Anicteric and Moist Mucous Membranes
Cardiovascular: Regular Rhythm and Peripheral Edema (Trace edema)
Respiratory: Wheeze (n), Crackles (Isolated left lower lobe crackles.), Rhonchi (n), Non-Labored Respirations, Accessory Resp Muscle Use (n) and Stridor (n)
GI: Soft, Non Distended and Non Tender
Neurology: Awake, Alert and No Motor Deficits
Skin: Warm, Good Color, Cyanosis (n), Jaundice (n) and Rash (n)
Labs/Micro/Reports
Lab Data
04/13/25 05:51
04/13/25 05:51
--- NOTE | 2025-04-13 10:33 | W.PN.HOSP.TC ---
Today's Communication/Plan
-
medically stable for dc to SNF pending bed/auth
Assessment / Plan
Assessment / Plan
Assessment:
Acute on Chronic HFrEF
Acute on Chronic Hypoxemic Respiratory Failure secondary to the above
Hypertensive Emergency secondary to the above
-Patient required BiPAP support at admission.
-CT chest showing consolidation likely atelectasis versus pneumonia with small bilateral effusion
-Repeat echocardiogram showing ejection fraction 40 to 45% with dilated right ventricle and decreased systolic function moderate tricuspid regurgitation with estimated pulmonary artery pressure of 93 mmHg
-Patient was on IV diuretics, currently on oral Lasix. Patient home regimen of Lasix 40 mg twice daily has been cut back to 40 mg daily, will need further adjustment based on weigh/cr trend.
Bilateral pleural effusion
- Underwent left thoracentesis on 04/05 with drainage of 300 cc of clear yellow fluid
- Transudative fluid with total WBC 625 84% mononuclear cell, LDH 121
- Left lower lobe atelectatic change better after thoracentesis, further antibiotics discontinued.
Hyperkalemia
- Continue holding Aldactone/lisinopril
- despite low K diet; was consuming bananas
- s/p Lokelma and temporization 04/11
- monitor BMP
Acute on chronic Hypercapnic respiratory failure
- Patient largely intolerant to BiPAP; stating he can only tolerate 1 hour nightly; also trialed various masks without success
- Frequent VBGs this admission has shown fluctuating pCO2 levels
- patient aware of risks and complications of intolerance/refusal of BiPAP
- Pulmonology following
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
- EKG with non-specific ST-T changes. Initial troponin = 0.043.
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
- Cardiology evaluated and help appreciated.
- Continue CV med regimen including ASA, statin, etc.
COPD
Severe pulmonary hypertension
- Maintained on nebulizer therapy
- Pulmonology evaluated and low concern of COPD flareup, IV steroids has been discontinued
- Patient to follow-up with pulmonology clinic on outpatient basis.
Bigeminy
- Noted on telemetry. Monitor
Left upper extremity swelling
- Ultrasound negative for DVT
Essential hypertension
- maintain on Coreg. Hold lisinopril/Aldactone.
Hyperlipidemia
Tobacco use with abuse
- Cessation advised
- Continue with nicotine patch
BPH
- Continue tamsulosin. Bladder scan protocol.
DVT Prophylaxis: Lovenox
Code Status: Full
Remains at high risk of worsening combined hypoxic/hypercapnic respiratory failure and related complication.
Repeat discussion held with patient regarding importance of compliance to BiPAP, patient understands and 'trying his best' to remain on BiPAP. Prognosis is guarded to poor although patient not ready for transition to palliative/hospice care.
Anticipated Discharge: Within 24 hours
Subjective/Interval History
-
Date of Service: April 13, 2025
no overnight events
Objective Data
-
Labs:
Laboratory Results
04/13/25
05:51
WBC 7.0
Hgb 12.7 L
Hct 40.7
Plt Count 214
Sodium 133 L
Potassium 4.2
Chloride 88 L
Carbon Dioxide 40 H
BUN 37 H
Creatinine 0.5 L
Glucose 125 H
Calcium 8.1 L
Vital Signs:
Vital Signs
Temp Pulse Resp BP Pulse Ox
97.7 F 68 16 119/64 97
04/13/25 07:00 04/13/25 07:53 04/13/25 07:21 04/13/25 07:53 04/13/25 09:56
I&O
04/12/25 04/13/25 04/14/25
06:59 06:59 06:59
Intake Total 600 / 600 1470 / 1470
Output Total 1300 / 1300 675 / 675
Balance -700 / -700 795 / 795
Physical Exam
-
General: No Apparent Distress
HEENT: Normocephalic and Atraumatic
Respiratory: Crackles (isolated crackles); Negative Wheezes
Cardiac: Regular Rhythm and S1/S2
GI: Soft
Musculoskeletal: No Edema
Neuro: AO x 3
Psych: Calm
Data Reviewed
-
Total Time Spent with Patient (in minutes): 42
Labs: Labs Reviewed by me
--- NOTE | 2025-04-13 10:44 | CM ---
CM reviewed chart, patient seen bedside.
CM discussed patient stable for discharge- [facility] able to offer patient bed. Patient agreeable.
Auth approved through [facility]- CM spoke with Gloria, auth approved 04/13-04/19, next review 04/19, call [phone] for updates.
Auth #[id number], ambulance auth #[id number].
IMM verbally reviewed with patient, provided with copy, placed in chart.
Updates to liaison at [facility].
CM will continue to follow.
Plan; auth approved to [facility], will require ambulance transport
[facility]
Report: [phone]
[2025-04-13 11:00] VITALS: BP 121/67
[2025-04-13 15:18] VITALS: BP 133/65
--- NOTE | 2025-04-13 15:42 | W.DCSUMMARY ---
Discharge Summary
Discharge Data
Date of Admission: 03/31/25
Date of Discharge: 04/13/25
-
Pending Results: No
Hospital Course
79 y/o M with PMH of COPD, Chronic Nocturnal Hypoxemia, HFrEF, Hypertension, BPH presented 03/31 with weakness and Shortness of breath. Patient was treated for acute on chronic hypoxia from acute on chronic CHF - he received a course of IV diuretics
and was transitioned to oral Lasix. Echo showed ejection fraction 40 to 45% with dilated right ventricle and decreased systolic function moderate tricuspid regurgitation with estimated pulmonary artery pressure of 93 mmHg.
There was also initial concern for acute COPD flare up but pulmonary evaluated and felt that was not the case. He also had bilateral pleural effusion and underwent thoracentesis on 04/05 on the L pleural effusion. Course was further complicated by
Acute on chronic Hypercapnic respiratory failure for which BiPAP was ordered; patient only tolerated 1 hour or less each night. Also course was complicated by hyperkalemia requiring Lokelma and stopping Aldactone. Lisinopril was resumed. Repeat BMP
will be obtained in 1 week.
Palliative care was consulted; patients goals of care are for rehab and ongoing treatment despite known poor prognosis as highlighted by pulmonary medicine with patients age, frailty, severe PH, cachexia and chronic respiratory failure.
He will see pulmonary outpatient in follow up.
He was discharged to SNF on 04/13/25.
Discharge Plan
-
Patient Disposition: Residential/SNF
Discharge Diagnosis/Procedures: acute on chronic hypoxic RF, acute on chronic CHF, pulm HTN, cachexia, L pleural effusion s/p thoracentesis, hyperkalemia, Acute on chronic Hypercapnic respiratory failure - intolerant of BiPAP
Condition: Serious
Diet: 2 Gram Sodium and Restrict fluids to 48 oz
Additional Diets: 2 gram potassium restriction
Activity: As tolerated
Blood Work: repeat BMP in 1 week to monitor potassium
Other Services: PT and OT
Activity Restrictions/Additional Instructions:
Wound Care Instructions Sacral/Coccyx- Clean with normal saline or soap and water and apply Calazime to open areas. May also cover with silicone border foam and change Q 48 hours.
Bilateral LE- Apply Mineral oil daily
Use air cushion or gel cushion in chair
Ensure you are eating adequate calories and protein
Follow up at wound care center call for an appointment.
Use BiPAP 12/5 nightly as tolerated
Referrals:
Tu Jones DO [Family Provider, Internal Medicine] - in two weeks
Abel Peralta MD [Active, Pulmonary Medicine] - in one to two weeks
Catherine Zhang NP [Specified Professional Personl, Palliative Care]
Referral Note: in 1 month
Additional Discharge Medication Instructions: stop Spironolactone and Advil
Prescriptions:
New
ipratropium-albuterol 0.5 mg-3 mg(2.5 mg base)/3 mL Solution For Nebulization
3 ml inhalation R Q4HPRN PRN (Reason: shortness of breath) Qty: 90 0RF
furosemide 40 mg Tablet
40 mg PO DAILY Qty: 30 0RF
Continued
lisinopril 5 mg tablet
5 mg PO DAILY
carvedilol 3.125 mg Tablet
3.125 mg PO BID 30 Days Qty: 60 0RF
aspirin 81 mg Tablet,Chewable
81 mg PO DAILY 30 Days Qty: 30 0RF
atorvastatin [Lipitor] 40 mg tablet
40 mg PO DAILY
tamsulosin 0.4 mg capsule
0.4 mg PO HS
fluticasone propion-salmeterol 250-50 mcg/dose Blister With Device
1 inh INHALATION R BID
Discontinued
spironolactone 25 mg Tablet
12.5 mg PO DAILY 30 Days Qty: 30 0RF
ibuprofen [Advil] 200 mg Tablet
400 mg PO TID
Discharge Orders:
Discharge Patient (As Directed); Ordered 04/13/25
Ordered By: Angelita Ching
Discharge Date and Time
Discharge Date/Time: 04/13/25 15:39
Print Language: GREENLAND[place]
== END 2025-04-13 15:39 | DRG 291 ==
LOC: 4 EAST ACU 23:02
PROVIDERS: Emergency Medicine; Hospitalist; Internal Medicine; Internal Medicine Critical Care Medicine; Nurse Practitioner Family; Radiology Vascular & Interventional Radiology; ADMITTING PHYSICIAN Hospitalist; ATTENDING PHYSICIAN Internal Medicine; CONSULT PHYSICIAN Internal Medicine Critical Care Medicine; EMERGENCY PHYSICIAN Student in an Organized Health Care Education/Training Program; FAMILY PHYSICIAN Internal Medicine; OTHER PHYSICIAN Nurse Practitioner Gerontology
PROC: 5A09357 Assistance with Respiratory Ventilation, Less than 24 Consecutive Hours, Continuous Positive Airway Pressure (ICD-10-PCS; 2025-04-01)
PROC: 5A0935A Assistance with Respiratory Ventilation, Less than 24 Consecutive Hours, High Flow/Velocity Cannula (ICD-10-PCS; 2025-04-03)
PROC: 0W9B3ZZ Drainage of Left Pleural Cavity, Percutaneous Approach (ICD-10-PCS; 2025-04-05)
DX: I11.0 Hypertensive heart disease with heart failure (principal); I50.23 Acute on chronic systolic (congestive) heart failure; J18.9 Pneumonia, unspecified organism; J96.21 Acute and chronic respiratory failure with hypoxia; J96.22 Acute and chronic respiratory failure with hypercapnia; J44.1 Chronic obstructive pulmonary disease with (acute) exacerbation; I16.1 Hypertensive emergency; J98.11 Atelectasis; E87.3 Alkalosis; E87.1 Hypo-osmolality and hyponatremia; R64 Cachexia; Z68.1 Body mass index [BMI] 19.9 or less, adult; J90 Pleural effusion, not elsewhere classified; I5A Non-ischemic myocardial injury (non-traumatic); I42.8 Other cardiomyopathies; N40.0 Benign prostatic hyperplasia without lower urinary tract symptoms; E78.00 Pure hypercholesterolemia, unspecified; L89.152 Pressure ulcer of sacral region, stage 2; I25.10 Atherosclerotic heart disease of native coronary artery without angina pectoris; I27.20 Pulmonary hypertension, unspecified; D69.6 Thrombocytopenia, unspecified; I49.3 Ventricular premature depolarization; F17.210 Nicotine dependence, cigarettes, uncomplicated; R54 Age-related physical debility; I07.1 Rheumatic tricuspid insufficiency; E87.5 Hyperkalemia; J43.2 Centrilobular emphysema; Z60.2 Problems related to living alone; Z99.81 Dependence on supplemental oxygen; Z79.82 Long term (current) use of aspirin; Z79.899 Other long term (current) drug therapy; Z82.49 Family history of ischemic heart disease and other diseases of the circulatory system; Z11.52 Encounter for screening for COVID-19; Z87.01 Personal history of pneumonia (recurrent)
CPT/HCPCS: 32555; 36600; 71045; 71046; 71250; 80048; 80061; 82805; 82945; 83036; 83615; 83735; 83880; 83986; 84100; 84145; 84155; 84157; 84443; 84478; 84484; 85025; 85027; 87015; 87070; 87116; 87205; 87502; 87811; 88112; 88305; 88341; 88342; 89051; 92610; 93005; 93306; 93971; 94640; 94660; 96374; 96375; 97110; 97163; 97167; 97530; 97535; 99291; 99406